=== PATIENT | female | born 1965 | race Caucasian/White ===

== ENCOUNTER 2018-03-05 14:58 | Emergency (ER) | payer OTHER ==
[2018-03-05 16:10] VITALS: RESP 20
[2018-03-05] MEDS ORDERED: IPRATROPIUM-ALBUTEROL 3 ML NEB INHALATION STA (17:03)
--- NOTE | 2018-03-05 17:34 | XR ---
EXAMINATION TYPE: XR chest 2V DATE OF EXAM: 03/05/2018 COMPARISON: 12/30/2012 HISTORY: Leg swelling TECHNIQUE: Frontal and lateral views of the chest are obtained. FINDINGS: Heart and mediastinum are normal. Lungs are clear. Diaphragm is normal. Bony thorax is int act. Pulmonary vascularity is normal. IMPRESSION: Normal chest. No change.
[2018-03-05 17:38] LABS: Basophils # (A) 0.1 k/uL (0-0.2); Basophils % (A) 1 %; Eosinophils # (A) 0.5 k/uL (0-0.7); Eosinophils % (A) 5 %; HCT 42.3 % (34.0-46.0); HGB 13.1 gm/dL (11.4-16.0); Lymphocytes # (A) 1.6 k/uL (1.0-4.8); Lymphocytes % (A) 15 %; MCH 29.8 pg (25.0-35.0); MCHC 30.9 g/dL (31.0-37.0); MCV 96.4 fL (80.0-100.0); Mean Platelet Volume 6.8; Monocytes # (A) 0.6 k/uL (0-1.0); Monocytes % (A) 6 %; Neutrophils # (A) 8.1 k/uL (1.3-7.7); Neutrophils % (A) 72 %; Platelet Count 364 k/uL (150-450); RBC 4.39 m/uL (3.80-5.40); RDW 13.7 % (11.5-15.5); WBC 11.3 k/uL (3.8-10.6)
--- NOTE | 2018-03-05 17:41 | ED ---
Extremity Problem HPI - General Chief complaint: Extremity Problem,Nontraumatic Stated complaint: Lt leg pain Time Seen by Provider: 03/05/18 16:34 Source: patient, RN notes reviewed Mode of arrival: wheelchair Limitations: no limitations - History of Present Illness Initial comments: 52-year-old female presents emergency Department chief complaint of left lower leg redness and draining. Patient states that this has been present for last 10 days or so. Patient states that she started with this a scratch her leg caused by herself. Patient states that he seemed to worsen so she called her friend who is a physician in her Keflex 500 mg twice daily. Patient states she just finished this for 1 week and states it did not improve. Patient reports no fever no chills. She has chronic swelling of lower legs and states that she has not had any recent lab work. She has no history of CHF or renal disease. Patient also reports that she's been short of breath states that she is a heavy smoker. Patient noticed some wheezing. Patient denies any abdominal complaints including nausea vomiting diarrhea constipation no decreased urine output. - Related Data Home Medications Medication Instructions Recorded Confirmed Ibuprofen [Motrin Ib] 400 mg PO Q6H PRN 03/05/18 03/05/18 Previous Rx's Medication Instructions Recorded Clindamycin HCl 300 mg PO Q6HR #40 cap 03/05/18 Furosemide [Lasix] 20 mg PO DAILY #3 tab 03/05/18 Allergies Allergy/AdvReac Type Severity Reaction Status Date / Time sulfamethoxazole Allergy BURNING ON Verified 03/05/18 16:45 [From Bactrim] LIPS trimethoprim [From Bactrim] Allergy BURNING ON Verified 03/05/18 16:45 LIPS Review of Systems ROS Statement: Those systems with pertinent positive or pertinent negative responses have been documented in the HPI. ROS Other: All systems not noted in ROS Statement are negative. Past Medical History Past Medical History: Asthma, Neurologic Disorder Additional Past Medical History / Comment(s): MIGRAINES. VARICOSE VEINS. DANISHA. CARPAL TUNNEL. GENITAL WARTS. History of Any Multi-Drug Resistant Organisms: None Reported Past Surgical History: Bladder Surgery Additional Past Surgical History / Comment(s): [facility] 01/30/12. Past Anesthesia/Blood Transfusion Reactions: Motion Sickness Past Psychological History: No Psychological Hx Reported Smoking Status: Current every day smoker Past Alcohol Use History: None Reported Past Drug Use History: None Reported - Past Family History Father Family Medical History: Cancer General Exam Limitations: no limitations General appearance: alert, in no apparent distress Head exam: Present: atraumatic, normocephalic, normal inspection Eye exam: Present: normal appearance, PERRL, EOMI. Absent: scleral icterus, conjunctival injection, periorbital swelling Respiratory exam: Present: wheezes. Absent: normal lung sounds bilaterally, respiratory distress, rales, rhonchi, stridor Cardiovascular Exam: Present: regular rate, normal rhythm, normal heart sounds. Absent: systolic murmur, diastolic murmur, rubs, gallop, clicks Extremities exam: Present: other (Bilateral lower extremity 2+ pitting edema, pedal pulses equal bilaterally, there is mild erythema to left lower lateral aspect. There is broken down skin noted with topical ointment place. There is warm with palpation) Skin exam: Present: warm, dry Course Vital Signs 03/05/18 03/05/18 03/05/18 16:06 17:40 18:01 Temperature 97.6 F Pulse Rate 93 84 88 Respiratory 20 Rate Blood Pressure 131/72 O2 Sat by Pulse 97 Oximetry Medical Decision Making - Medical Decision Making 52-year-old female presented from for left leg swelling, infection. Patient has bilateral lower [place] swelling secondary to chronic peripheral edema. Patient we given Lasix for 3 days, will be placed on clindamycin 4 times a day. Patient was on Keflex but only twice daily. We discussed wound care and leaving it open to the lower to air dry. Patient will follow-up with PCP and return for any worsening symptoms. - Lab Data Result diagrams: 03/05/18 17:10 03/05/18 17:10 Lab Results 03/05/18 03/05/18 03/05/18 Range/Units 17:10 17:10 17:10 WBC 11.3 H (3.8-10.6) k/uL RBC 4.39 (3.80-5.40) m/uL Hgb 13.1 (11.4-16.0) gm/dL Hct 42.3 (34.0-46.0) % MCV 96.4 (80.0-100.0) fL MCH 29.8 (25.0-35.0) pg MCHC 30.9 L (31.0-37.0) g/dL RDW 13.7 (11.5-15.5) % Plt Count 364 (150-450) k/uL Neutrophils % 72 % Lymphocytes % 15 % Monocytes % 6 % Eosinophils % 5 % Basophils % 1 % Neutrophils # 8.1 H (1.3-7.7) k/uL Lymphocytes # 1.6 (1.0-4.8) k/uL Monocytes # 0.6 (0-1.0) k/uL Eosinophils # 0.5 (0-0.7) k/uL Basophils # 0.1 (0-0.2) k/uL Sodium 141 (137-145) mmol/L Potassium 4.2 (3.5-5.1) mmol/L Chloride 108 H (98-107) mmol/L Carbon Dioxide 27 (22-30) mmol/L Anion Gap 6 mmol/L BUN 16 (7-17) mg/dL Creatinine 0.86 (0.52-1.04) mg/dL Est GFR (CKD-EPI)AfAm >90 (>60 ml/min/1.73 sqM) Est GFR (CKD-EPI)NonAf 80 (>60 ml/min/1.73 sqM) Glucose 106 H (74-99) mg/dL Plasma Lactic Acid Byron 1.2 (0.7-2.0) mmol/L Calcium 8.8 (8.4-10.2) mg/dL Total Bilirubin 0.2 (0.2-1.3) mg/dL AST 25 (14-36) U/L ALT 50 (9-52) U/L Alkaline Phosphatase 113 (38-126) U/L NT-Pro-B Natriuret Pep pg/mL Total Protein 6.6 (6.3-8.2) g/dL Albumin 3.3 L (3.5-5.0) g/dL 03/05/18 Range/Units 17:10 WBC (3.8-10.6) k/uL RBC (3.80-5.40) m/uL Hgb (11.4-16.0) gm/dL Hct (34.0-46.0) % MCV (80.0-100.0) fL MCH (25.0-35.0) pg MCHC (31.0-37.0) g/dL RDW (11.5-15.5) % Plt Count (150-450) k/uL Neutrophils % % Lymphocytes % % Monocytes % % Eosinophils % % Basophils % % Neutrophils # (1.3-7.7) k/uL Lymphocytes # (1.0-4.8) k/uL Monocytes # (0-1.0) k/uL Eosinophils # (0-0.7) k/uL Basophils # (0-0.2) k/uL Sodium (137-145) mmol/L Potassium (3.5-5.1) mmol/L Chloride (98-107) mmol/L Carbon Dioxide (22-30) mmol/L Anion Gap mmol/L BUN (7-17) mg/dL Creatinine (0.52-1.04) mg/dL Est GFR (CKD-EPI)AfAm (>60 ml/min/1.73 sqM) Est GFR (CKD-EPI)NonAf (>60 ml/min/1.73 sqM) Glucose (74-99) mg/dL Plasma Lactic Acid Byron (0.7-2.0) mmol/L Calcium (8.4-10.2) mg/dL Total Bilirubin (0.2-1.3) mg/dL AST (14-36) U/L ALT (9-52) U/L Alkaline Phosphatase (38-126) U/L NT-Pro-B Natriuret Pep 115 pg/mL Total Protein (6.3-8.2) g/dL Albumin (3.5-5.0) g/dL Disposition Clinical Impression: Left leg cellulitis, Leg edema, left Disposition: HOME SELF-CARE Condition: Stable Instructions: Cellulitis (ED) Additional Instructions: Please return to the Emergency Department if symptoms worsen or any other concerns. Prescriptions: Clindamycin HCl 300 mg PO Q6HR #40 cap Furosemide [Lasix] 20 mg PO DAILY #3 tab Is patient prescribed a controlled substance at d/c from ED?: No Referrals: None,Stated [Primary Care Provider] - 1-2 days Mady Barrera MD [STAFF PHYSICIAN] - 1-2 days Time of Disposition: 18:25
[2018-03-05 17:51] LABS: ALT 50 U/L (9-52); AST 25 U/L (14-36); Albumin 3.3 g/dL (3.5-5.0); Alkaline Phosphatase 113 U/L (38-126); Anion Gap 6 mmol/L; Blood Urea Nitrogen 16 mg/dL (7-17); Calcium 8.8 mg/dL (8.4-10.2); Carbon Dioxide 27 mmol/L (22-30); Chloride 108 mmol/L (98-107); Glucose 106 mg/dL (74-99); Potassium 4.2 mmol/L (3.5-5.1); Sodium 141 mmol/L (137-145); Total Bilirubin 0.2 mg/dL (0.2-1.3); Total Protein 6.6 g/dL (6.3-8.2)
[2018-03-05] MEDS ORDERED: FUROSEMIDE 10 MG/ML 2 ML VIAL IV ONE (18:22)
[2018-03-05] MEDS ORDERED: CLINDAMYCIN 150 MG CAP PO STA (18:25)
[2018-03-05 18:56] VITALS: BP 136/74; PULSE 79; TEMP 98.4
== END 2018-03-05 18:56 | disposition home or self-care (01) ==
LOC: EC 14:58
DX: L03.116 Cellulitis of left lower limb (principal); R06.02 Shortness of breath; J45.909 Unspecified asthma, uncomplicated; F17.200 Nicotine dependence, unspecified, uncomplicated; Z88.2 Allergy status to sulfonamides
CPT/HCPCS: 36415; 94640; 83880; 80053; 83605; 85025; 87040; 71046; 99284; 96374; J1940

== ENCOUNTER 2018-04-11 14:38 | Emergency (ER) | payer OTHER ==
[2018-04-11 14:48] VITALS: RESP 20; TEMP 98
[2018-04-11] MEDS ORDERED: FUROSEMIDE 40 MG TAB PO STA (15:24)
--- NOTE | 2018-04-11 15:53 | ED ---
General Adult HPI - General Chief complaint: Skin/Abscess/Foreign Body Stated complaint: Leg pain Time Seen by Provider: 04/11/18 14:59 Source: patient, RN notes reviewed Mode of arrival: wheelchair Limitations: no limitations - History of Present Illness Initial comments: 53-year-old female presents to the emergency department for a chief complaint of wound on the left lower leg 3 months. Patient states she has chronic swelling in the lower extremities 6 months. She states that she has had a wound on the left lower extremity for about 3 months and is starting to get one on the right lower extremity. Patient states wound is painful. She states that when she elevates her legs wound begins to heal but when she works all day wound worsens. She denies fevers or chills. Patient has been on antibiotics without improvement. Patient states she has not seen wound care.Patient has no other complaints at this time including shortness of breath, chest pain, abdominal pain, nausea or vomiting, headache, or visual changes. - Related Data Previous Rx's Medication Instructions Recorded Furosemide [Lasix] 40 mg PO DAILY #3 tablet 04/11/18 Allergies Allergy/AdvReac Type Severity Reaction Status Date / Time sulfamethoxazole Allergy BURNING ON Verified 04/11/18 15:23 [From Bactrim] LIPS trimethoprim [From Bactrim] Allergy BURNING ON Verified 04/11/18 15:23 LIPS Review of Systems ROS Statement: Those systems with pertinent positive or pertinent negative responses have been documented in the HPI. ROS Other: All systems not noted in ROS Statement are negative. Past Medical History Past Medical History: Asthma, Neurologic Disorder Additional Past Medical History / Comment(s): MIGRAINES. VARICOSE VEINS. DANISHA. CARPAL TUNNEL. GENITAL WARTS. History of Any Multi-Drug Resistant Organisms: None Reported Past Surgical History: Bladder Surgery Additional Past Surgical History / Comment(s): [facility] 01/30/12. Past Anesthesia/Blood Transfusion Reactions: Motion Sickness Past Psychological History: No Psychological Hx Reported Smoking Status: Current every day smoker Past Alcohol Use History: None Reported Past Drug Use History: None Reported - Past Family History Father Family Medical History: Cancer General Exam Limitations: no limitations General appearance: alert, in no apparent distress Head exam: Present: atraumatic, normocephalic, normal inspection Eye exam: Present: normal appearance, PERRL, EOMI. Absent: scleral icterus, conjunctival injection, periorbital swelling ENT exam: Present: normal exam, mucous membranes moist Neck exam: Present: normal inspection, full ROM. Absent: tenderness, meningismus, lymphadenopathy Respiratory exam: Present: normal lung sounds bilaterally. Absent: respiratory distress, wheezes, rales, rhonchi, stridor Cardiovascular Exam: Present: regular rate, normal rhythm, normal heart sounds. Absent: systolic murmur, diastolic murmur, rubs, gallop, clicks Extremities exam: Present: full ROM (4 range of motion of the right and left lower extremities), normal capillary refill (Capillary refill less than 2 seconds in lower extremities bilaterally), pedal edema (Moderate edema noted in the bilateral lower extremities, worse in the left lower extremity), other ( Patient has a 6 cm x 3 cm chronic wound noted to the left lateral lower extremity. No purulent discharge or evidence of infection. No evidence of cellulitic infection or erythema.) Course Vital Signs 04/11/18 04/11/18 14:44 16:57 Temperature 98.0 F Pulse Rate 93 92 Respiratory 20 20 Rate Blood Pressure 151/81 142/60 O2 Sat by Pulse 99 96 Oximetry Medical Decision Making - Medical Decision Making 53-year-old female presents to the emergency department for a chief complaint of wound to the left lower extremity. Patient had heart failure workup here in the hospital a month ago which was negative. Patient does have swelling of the left leg which is chronic. Left leg worse than right so ultrasound was done which is negative for acute DVT. Low suspicion for DVT. Wound does not appear to be infected at this time and appears chronic. Patient must follow-up with wound care. She was given contact [facility] for [facility]. She will also be given Lasix for the next few days. Patient to return here if she has any worsening symptoms. Disposition Clinical Impression: Chronic wound of extremity Disposition: HOME SELF-CARE Condition: Good Instructions (If sedation given, give patient instructions): Chronic Wound Care (ED), Leg Edema (ED) Additional Instructions: Please follow up with [facility] and wound care. Keep the extremity elevated as much as possible. Take Lasix as directed. Return to the emergency department if you have any worsening symptoms or fevers. Prescriptions: Furosemide [Lasix] 40 mg PO DAILY #3 tablet Is patient prescribed a controlled substance at d/c from ED?: No Referrals: Gerardo Dill MD [STAFF PHYSICIAN] - 1-2 days [facility],Idris Valladares [NON-STAFF] - 1-2 days [facility] [NON-STAFF] - 1-2 days Mady Barrera MD [STAFF PHYSICIAN] - 1-2 days Time of Disposition: 16:57
--- NOTE | 2018-04-11 16:18 | US ---
EXAMINATION TYPE: US venous doppler duplex LE LT DATE OF EXAM: 04/11/2018 3:59 PM COMPARISON: NONE CLINICAL HISTORY: 53-year-old female Pain. Left leg pain, no history of DVT. Not on blood thinners. No previous surgeries. SIDE PERFORMED: Left TECHNIQUE: The lower extremity deep venous system is examined utilizing real time linear array sonog vianey with graded compression, doppler sonography and color-flow sonography. FINDINGS: VESSELS IMAGED: External Iliac Vein (EIV) Common Femoral Vein Deep Femoral Vein Greater Saphenous Vein * Femoral Vein Popliteal Vein Small Saphenous Vein * Proximal Calf Veins (* superficial vessels) Fleet Coordinator notes:Limited exam due to patient body habitus, suboptimal visualization Left Leg: Appears negative for acute DVT IMPRESSION: Limited exam due to body habitus. No visualized DVT within the left lower extremity to the extent obdulia reciable from the groin down to the upper calf.
[2018-04-11 17:00] VITALS: BP 142/60; PULSE 92
== END 2018-04-11 18:03 | disposition home or self-care (01) ==
LOC: EC 14:38
DX: L97.929 Non-pressure chronic ulcer of unspecified part of left lower leg with unspecified severity (principal); R60.0 Localized edema; F17.200 Nicotine dependence, unspecified, uncomplicated; Z88.2 Allergy status to sulfonamides
CPT/HCPCS: 99283

== ENCOUNTER 2019-04-01 18:49 | Inpatient (IN) | payer OTHER ==
[2019-04-01] MEDS ORDERED: ASPIRIN 325 MG TAB PO STA (19:22)
--- NOTE | 2019-04-01 20:08 | XR ---
EXAMINATION TYPE: XR chest 2V DATE OF EXAM: 04/01/2019 COMPARISON: 03/05/2018 HISTORY: Leg swelling TECHNIQUE: FINDINGS: Heart and mediastinum are normal. Lungs are clear. Diaphragm is normal. Bony thorax appears normal. IMPRESSION: Normal chest. No change.
--- NOTE | 2019-04-01 20:14 | ED ---
General Adult HPI - General Chief complaint: Recheck/Abnormal Lab/Rx Stated complaint: high heart enzymes Time Seen by Provider: 04/01/19 19:10 Source: patient, RN notes reviewed, old records reviewed Mode of arrival: ambulatory Limitations: no limitations - History of Present Illness Initial comments: 54-year-old female presents for evaluation of an abnormal outpatient lab. Patient see her primary care physician today for preoperative clearance for orthopedic surgery. She had an EKG performed which showed some abnormalities and laboratories stenting was performed on an outpatient basis. She had been called by her primary care physician and instructed to present to the emergency department with an elevated troponin. I did discuss the case with Dr. Finney, prior to arrival who indicated that the patient's troponin was 3.0. Patient admits that she had an episode of chest pain 5 days prior which was substernal chest pressure lasting approximately 20 minutes. She states that she had a similar episode to this 2 days prior to that which is 7 days prior to today. She has no known history of coronary artery disease. She is a diabetic and is a current smoker. He has no complaints at the time my evaluation, no dyspnea, no chest pain. - Related Data Previous Rx's Medication Instructions Recorded Furosemide [Lasix] 40 mg PO DAILY #3 tablet 04/11/18 Allergies Allergy/AdvReac Type Severity Reaction Status Date / Time sulfamethoxazole Allergy BURNING ON Verified 04/01/19 19:01 [From Bactrim] LIPS trimethoprim [From Bactrim] Allergy BURNING ON Verified 04/01/19 19:01 LIPS Review of Systems ROS Statement: Those systems with pertinent positive or pertinent negative responses have been documented in the HPI. ROS Other: All systems not noted in ROS Statement are negative. Past Medical History Past Medical History: Asthma, Neurologic Disorder Additional Past Medical History / Comment(s): MIGRAINES. VARICOSE VEINS. DANISHA. CARPAL TUNNEL. GENITAL WARTS. History of Any Multi-Drug Resistant Organisms: None Reported Past Surgical History: Bladder Surgery Additional Past Surgical History / Comment(s): [facility] 01/30/12. Past Anesthesia/Blood Transfusion Reactions: Motion Sickness Past Psychological History: No Psychological Hx Reported Smoking Status: Current every day smoker Past Alcohol Use History: None Reported Past Drug Use History: None Reported - Past Family History Father Family Medical History: Cancer General Exam Limitations: no limitations General appearance: alert, in no apparent distress Head exam: Present: atraumatic, normocephalic Eye exam: Present: normal appearance, PERRL ENT exam: Present: normal exam Neck exam: Present: normal inspection. Absent: tenderness Respiratory exam: Present: normal lung sounds bilaterally. Absent: respiratory distress, wheezes Cardiovascular Exam: Present: regular rate, normal rhythm. Absent: rubs GI/Abdominal exam: Present: soft. Absent: distended, tenderness, guarding Extremities exam: Present: normal capillary refill, pedal edema. Absent: calf tenderness Neurological exam: Present: alert, oriented X3, CN II-XII intact. Absent: motor sensory deficit Psychiatric exam: Present: normal affect, normal mood Skin exam: Present: warm, dry, intact. Absent: cyanosis, diaphoretic Course Vital Signs 04/01/19 18:58 Temperature 98.2 F Pulse Rate 91 Respiratory 20 Rate Blood Pressure 118/75 O2 Sat by Pulse 99 Oximetry - Reevaluation(s) Reevaluation #1: 04/01/191923 Case discussed with cardiology Dr. Daniel, recommends heparin, beta yeyo, echo in the morning and repeat EKG in the morning. EKG Findings - EKG Comments: EKG Findings:: EKG: Normal sinus rhythm, left axis, low voltage, incomplete right bundle-branch block, inferior infarct age undetermined, rate of 99, IL interval 170, QRS duration 94, QTC 462, Medical Decision Making - Medical Decision Making 54-year-old female presenting for evaluation of elevated troponin on outpatient testing. Patient's is chest pain-free. Chest x-ray negative for acute Antwan pulmonary disease. Normal CBC, stable hemoglobin, normal platelets. She has normal electrolytes, normal kidney function, troponin is elevated 2.9, this is stable and down trending from reported lab draw earlier today. Patient is initiated on heparin, aspirin, beta blockers. She remains chest pain-free while in the emergency department. I did discuss case with cardiology at the time of patient's arrival. Recommending echo and heparin. - Lab Data Result diagrams: 04/01/19 19:32 04/01/19 19:32 Lab Results 04/01/19 04/01/19 04/01/19 Range/Units 19:32 19:32 19:32 WBC 12.3 H (3.8-10.6) k/uL RBC 4.75 (3.80-5.40) m/uL Hgb 14.3 (11.4-16.0) gm/dL Hct 44.0 (34.0-46.0) % MCV 92.6 (80.0-100.0) fL MCH 30.2 (25.0-35.0) pg MCHC 32.6 (31.0-37.0) g/dL RDW 13.9 (11.5-15.5) % Plt Count 375 (150-450) k/uL Neutrophils % 71 % Lymphocytes % 17 % Monocytes % 6 % Eosinophils % 4 % Basophils % 1 % Neutrophils # 8.8 H (1.3-7.7) k/uL Lymphocytes # 2.1 (1.0-4.8) k/uL Monocytes # 0.7 (0-1.0) k/uL Eosinophils # 0.5 (0-0.7) k/uL Basophils # 0.1 (0-0.2) k/uL PT 10.2 (9.0-12.0) sec INR 1.0 (<1.2) APTT 24.2 (22.0-30.0) sec Sodium 139 (137-145) mmol/L Potassium 5.1 (3.5-5.1) mmol/L Chloride 106 (98-107) mmol/L Carbon Dioxide 21 L (22-30) mmol/L Anion Gap 12 mmol/L BUN 22 H (7-17) mg/dL Creatinine 0.76 (0.52-1.04) mg/dL Est GFR (CKD-EPI)AfAm >90 (>60 ml/min/1.73 sqM) Est GFR (CKD-EPI)NonAf >90 (>60 ml/min/1.73 sqM) Glucose 99 (74-99) mg/dL Calcium 9.5 (8.4-10.2) mg/dL Magnesium 1.7 (1.6-2.3) mg/dL Total Bilirubin 0.6 (0.2-1.3) mg/dL AST 43 H (14-36) U/L ALT 30 (4-34) U/L Alkaline Phosphatase 125 (38-126) U/L Troponin I (0.000-0.034) ng/mL Total Protein 7.8 (6.3-8.2) g/dL Albumin 4.2 (3.5-5.0) g/dL 04/01/19 Range/Units 19:32 WBC (3.8-10.6) k/uL RBC (3.80-5.40) m/uL Hgb (11.4-16.0) gm/dL Hct (34.0-46.0) % MCV (80.0-100.0) fL MCH (25.0-35.0) pg MCHC (31.0-37.0) g/dL RDW (11.5-15.5) % Plt Count (150-450) k/uL Neutrophils % % Lymphocytes % % Monocytes % % Eosinophils % % Basophils % % Neutrophils # (1.3-7.7) k/uL Lymphocytes # (1.0-4.8) k/uL Monocytes # (0-1.0) k/uL Eosinophils # (0-0.7) k/uL Basophils # (0-0.2) k/uL PT (9.0-12.0) sec INR (<1.2) APTT (22.0-30.0) sec Sodium (137-145) mmol/L Potassium (3.5-5.1) mmol/L Chloride (98-107) mmol/L Carbon Dioxide (22-30) mmol/L Anion Gap mmol/L BUN (7-17) mg/dL Creatinine (0.52-1.04) mg/dL Est GFR (CKD-EPI)AfAm (>60 ml/min/1.73 sqM) Est GFR (CKD-EPI)NonAf (>60 ml/min/1.73 sqM) Glucose (74-99) mg/dL Calcium (8.4-10.2) mg/dL Magnesium (1.6-2.3) mg/dL Total Bilirubin (0.2-1.3) mg/dL AST (14-36) U/L ALT (4-34) U/L Alkaline Phosphatase (38-126) U/L Troponin I 2.900 H* (0.000-0.034) ng/mL Total Protein (6.3-8.2) g/dL Albumin (3.5-5.0) g/dL Critical Care Time Critical Care Time: Yes Total Critical Care Time: 35 Disposition Clinical Impression: NSTEMI (non-ST elevated myocardial infarction) Disposition: ADMITTED IP TO THIS HOSP Condition: Stable Is patient prescribed a controlled substance at d/c from ED?: No Referrals: Noemy Valencia MD [Primary Care Provider] - 1-2 days Decision to Admit Reason: Admit from EC Decision Date: 04/01/19 Decision Time: 21:01
[2019-04-01 20:16] LABS: Basophils # (A) 0.1 k/uL (0-0.2); Basophils % (A) 1 %; Eosinophils # (A) 0.5 k/uL (0-0.7); Eosinophils % (A) 4 %; HGB 14.3 gm/dL (11.4-16.0); Lymphocytes # (A) 2.1 k/uL (1.0-4.8); Lymphocytes % (A) 17 %; MCH 30.2 pg (25.0-35.0); MCHC 32.6 g/dL (31.0-37.0); MCV 92.6 fL (80.0-100.0); Mean Platelet Volume 7.5; Monocytes # (A) 0.7 k/uL (0-1.0); Monocytes % (A) 6 %; Neutrophils # (A) 8.8 k/uL (1.3-7.7); Neutrophils % (A) 71 %; Platelet Count 375 k/uL (150-450); RBC 4.75 m/uL (3.80-5.40); RDW 13.9 % (11.5-15.5); WBC 12.3 k/uL (3.8-10.6)
[2019-04-01] MEDS ORDERED: HEPARIN SODIUM,PORCINE 5,000 UNIT/ML 1 ML VIAL IV PRN (20:18)
[2019-04-01] MEDS ORDERED: HEPARIN SODIUM,PORCINE 5,000 UNIT/ML 1 ML VIAL IV ONE (20:18)
[2019-04-01 20:29] LABS: ALT 30 U/L (4-34); AST 43 U/L (14-36); African American GFR (CKD) >90 (>60 ml/min/1.73 sqM); Albumin 4.2 g/dL (3.5-5.0); Alkaline Phosphatase 125 U/L (38-126); Anion Gap 12 mmol/L; Blood Urea Nitrogen 22 mg/dL (7-17); Calcium 9.5 mg/dL (8.4-10.2); Carbon Dioxide 21 mmol/L (22-30); Chloride 106 mmol/L (98-107); Glucose 99 mg/dL (74-99); Magnesium 1.7 mg/dL (1.6-2.3); Non-African American GFR(CKD) >90 (>60 ml/min/1.73 sqM); Potassium 5.1 mmol/L (3.5-5.1); Sodium 139 mmol/L (137-145); Total Bilirubin 0.6 mg/dL (0.2-1.3); Total Protein 7.8 g/dL (6.3-8.2)
[2019-04-01 20:46] LABS: Partial Thromboplastin Time 24.2 sec (22.0-30.0); Prothrombin Time 10.2 sec (9.0-12.0)
[2019-04-01] MEDS ORDERED: NITROGLYCERIN SL TABS 0.4 MG TAB SUBLINGUAL PRN (20:56)
[2019-04-01] MEDS: HEPARIN SOD,PORK IN 0.45% NACL 25,000 UNIT in 0.45% NACL 1 250ML.BAG IV SCH (21:13)
[2019-04-01] MEDS: ATORVASTATIN 40 MG TAB PO SCH (22:59)
[2019-04-01] MEDS: Acetaminophen-Codeine 300-30mg TAB PO PRN (22:59)
[2019-04-01] MEDS: METOPROLOL TARTRATE 25 MG TAB PO SCH (22:59)
[2019-04-02 03:09] LABS: Basophils # (A) 0.2 k/uL (0-0.2); Basophils % (A) 2 %; Eosinophils # (A) 0.5 k/uL (0-0.7); Eosinophils % (A) 4 %; HCT 42.9 % (34.0-46.0); Lymphocytes # (A) 2.5 k/uL (1.0-4.8); Lymphocytes % (A) 19 %; MCH 30.4 pg (25.0-35.0); MCHC 32.6 g/dL (31.0-37.0); MCV 93.4 fL (80.0-100.0); Mean Platelet Volume 7.7; Monocytes # (A) 0.9 k/uL (0-1.0); Monocytes % (A) 7 %; Neutrophils # (A) 8.5 k/uL (1.3-7.7); Neutrophils % (A) 67 %; Platelet Count 357 k/uL (150-450); RBC 4.59 m/uL (3.80-5.40); RDW 13.8 % (11.5-15.5); WBC 12.7 k/uL (3.8-10.6)
[2019-04-02 03:26] LABS: Cholesterol 198 mg/dL (<200); HDL Cholesterol 36 mg/dL (40-60); LDL Cholesterol,Calculated 112 mg/dL (0-99); Triglycerides 250 mg/dL (<150)
[2019-04-02] MEDS: Acetaminophen-Codeine 300-30mg TAB PO PRN ×2 (06:38→13:33)
[2019-04-02] MEDS ORDERED: ASPIRIN 325 MG TAB PO SCH (09:00)
[2019-04-02] MEDS: NICOTINE 14MG/24HR PATCH TRANSDERM SCH (09:41)
[2019-04-02] MEDS ORDERED: IPRATROPIUM-ALBUTEROL 3 ML NEB INHALATION PRN (09:43)
[2019-04-02] MEDS: ASPIRIN 81 MG PO SCH (09:47)
[2019-04-02] MEDS: METOPROLOL TARTRATE 25 MG TAB PO SCH ×2 (09:48→21:45)
[2019-04-02] MEDS ORDERED: PANTOPRAZOLE 40 MG/10 ML VIAL IVP SCH (10:15)
[2019-04-02] MEDS: HYDROmorphone 1 MG/ML 1 ML SYRINGE IVP PRN ×2 (11:03→18:39)
[2019-04-02] MEDS: methylPREDNISolone SOD SUCCI 40 MG/ML 1 ML VIAL IV SCH ×3 (11:04→23:38)
[2019-04-02 11:20] LABS: Glucose,Whole Blood 106 mg/dL (75-99)
--- NOTE | 2019-04-02 11:22 | P.HPIM ---
History of Present Illness H&P Date: 04/02/19 Chief Complaint: Abnormal troponin This is a 54-year-old female patient of Dr. Valencia with past medical history of asthma, possible COPD, migraine headaches, active tobacco use and dependence, avascular necrosis of the right hip. Patient states that she saw Dr. Valencia yesterday for preop clearance for right hip surgery with Dr. Pryor it is scheduled for April 28. Patient then related to her physician that she had chest pain. Patient has been having chest pain for about one week one episode was quite severe was tightness and heartburn type symptoms. She has had several repeat episodes or less severe. She denies having any nausea. Patient had an EKG that was mildly abnormal in the office and troponin was ordered. Patient received a call that her troponin came back at 3 was advised to come in the hospital for further evaluation. Patient denies any chest pain at this time. She is complaining of significant right hip pain and states that she is unable to lay flat due to pain in her hip. She has been off work since October 2018 waiting for hip surgery. The patient was placed on doxycycline, prednisone taper by Dr. Valencia. Patient presented to [facility] emergency center for evaluation. She was afebrile, heart rate 91, blood pressure 118/75 and pulse ox 99% on room air. EKG was a sinus rhythm with changes in the inferior lead suggestive of inferior IA. WBC 12.3, hemoglobin 14.3. Electrolytes within normal limits, creatinine 0.76 and BUN 22, AST 43. Repeat troponins were 2.8 and 2.340. Triglycerides 250, cholesterol 198, LDL 112, HDL 36. Patient was started on aspirin, atorvastatin, heparin drip, Lopressor 25 mg twice daily and admitted to the cardiac stepdown unit. Patient has been seen by cardiology with plan for echocardiogram and heart catheterization tomorrow. Patient is also complaining of wheezing for which nebulizer treatments and Solu-Medrol added. Patient is concerned about laying flat due for heart catheterization due to hip pain. Dilaudid will be added and heart catheterization is planned via wrist. Review of Systems Constitutional: Denies chills, Denies fever, Denies poor appetite, Denies weakness Eyes: denies blurred vision, denies pain Ears, nose, mouth and throat: Denies dysphagia, Denies headache, Denies nasal congestion, Denies nasal discharge, Denies sore throat, Denies vertigo Cardiovascular: Reports shortness of breath, Denies chest pain, Denies edema, Denies leg edema, Denies lightheadedness, Denies syncope Respiratory: Reports cough, Reports cough with sputum, Reports dyspnea, Reports wheezing, Denies excessive sputum, Denies hemoptysis, Denies home oxygen Gastrointestinal: Denies abdominal pain, Denies diarrhea, Denies loss of appetite, Denies nausea, Denies vomiting Genitourinary: Denies dysuria, Denies hematuria, Denies urgency, Denies urinary frequency Musculoskeletal: Reports gait dysfunction, Denies frequent falls, Denies myalgias Musculoskeletal: right: hip pain, hip stiffness Integumentary: Denies pruritus, Denies rash, Denies wounds Neurological: Denies change in mentation, Denies change in speech, Denies numbness, Denies weakness Psychiatric: Denies anxiety, Denies depression Endocrine: Denies fatigue, Denies weight change Past Medical History Past Medical History: Asthma, COPD, Osteoarthritis (OA) Additional Past Medical History / Comment(s): MIGRAINES. VARICOSE VEINS. DANISHA. CARPAL TUNNEL. GENITAL WARTS. History of Any Multi-Drug Resistant Organisms: MRSA Date of last positivie culture/infection: 07/2018 MDRO Source:: left leg Past Surgical History: Bladder Surgery Additional Past Surgical History / Comment(s): RICCARDO 01/30/12. Past Anesthesia/Blood Transfusion Reactions: No Reported Reaction Past Psychological History: No Psychological Hx Reported Smoking Status: Current every day smoker Past Alcohol Use History: None Reported Additional Past Alcohol Use History / Comment(s): The patient is a smoker since she was 13 years of age smoking one to one and half packs per day recently cut back to one half pack per day. No illicit drug use, no alcohol abuse. Patient denies having oxygen at home. Patient lives at home with her significant other. Past Drug Use History: None Reported - Past Family History Father Family Medical History: Cancer Additional Family Medical History / Comment(s): Father is . Patient had no contact with her father. Mother Family Medical History: Diabetes Mellitus Additional Family Medical History / Comment(s): Mother is alive at age 72 with history of COPD, diabetes, chronic kidney disease. No known coronary artery disease. Brother(s) Additional Family Medical History / Comment(s): Patient has 1 brother with no major medical problems. Patient's 1 sister with ADD. Patient has 1 son with ADD and one daughter with asthma. Medications and Allergies Home Medications Medication Instructions Recorded Confirmed Type Furosemide [Lasix] 40 mg PO DAILY #3 tablet 04/11/18 04/01/19 Rx Acetaminophen with Codeine 1 tab PO QID 04/01/19 04/01/19 History [Tylenol with Codeine #4 Tablet] Cyclobenzaprine [Flexeril] 5 mg PO TID 04/01/19 04/01/19 History Doxycycline Monohydrate [Monodox] 100 mg PO BID 04/01/19 04/01/19 History Ipratropium/Albuterol Sulfate 1 puff INHALATION RT-QID 04/01/19 04/01/19 History [Combivent Respimat Inhaler] Naproxen Sodium [Aleve] 220 mg PO BID PRN 04/01/19 04/01/19 History Phentermine HCl [Adipex-P] 37.5 mg PO DAILY 04/01/19 04/01/19 History Potassium Chloride ER [K-Dur 20] 20 meq PO DAILY 04/01/19 04/01/19 History predniSONE [Deltasone] See Taper PO DAILY 04/01/19 04/01/19 History Allergies Allergy/AdvReac Type Severity Reaction Status Date / Time sulfamethoxazole Allergy BURNING ON Verified 04/01/19 21:51 [From Bactrim] LIPS trimethoprim [From Bactrim] Allergy BURNING ON Verified 04/01/19 21:51 LIPS Physical Exam Vitals: Vital Signs Temp Pulse Pulse Resp BP BP Pulse Ox 04/02/19 08:00 98 F 82 18 107/55 04/02/19 04:00 97.8 F 86 18 102/55 93 L 04/01/19 23:16 89 20 04/01/19 22:07 97.8 F 89 20 120/54 96 04/01/19 21:20 91 16 123/52 96 04/01/19 18:58 98.2 F 91 20 118/75 99 Intake and Output 04/01/19 04/02/19 04/02/19 22:59 06:59 14:59 Intake Total 71 0 Balance 71 0 Intake: Intake, IV Titration 71 Amount Heparin Sod,Pork in 0.45% 71 NaCl 25,000 unit In 0.45 % NaCl 1 250ml.bag @ 7. 818 UNITS/KG/HR 10 mls/hr IV .Q24H [facility] Rx#: [id number] Oral 0 Other: Voiding Method Toilet # Voids 1 0 # Bowel Movements 0 Weight 127.6 kg 127.6 kg Gen: This is a morbidly obese 54-year-old female. Patient is resting in bed and appears to be in no acute distress. HEENT: Head is atraumatic, normocephalic. Pupils equal, round. Sclerae is anicteric. NECK: Supple. No JVD. No lymphadenopathy. No thyromegaly. LUNGS: Scattered expiratory wheezing. No intercostal retractions. Positive cough noted. HEART: Regular rate and rhythm. No murmur. ABDOMEN: Soft. Bowel sounds are present. No masses. No tenderness. EXTREMITIES: No pedal edema. No calf tenderness. NEUROLOGICAL: Patient is awake, alert and oriented x3. Cranial nerves 2 through 12 are grossly intact. Results CBC & Chem 7: 04/02/19 02:27 04/01/19 19:32 Labs: Abnormal Lab Results - Last 24 Hours (Table) 04/01/19 04/01/19 04/01/19 Range/Units 19:32 19:32 19:32 WBC 12.3 H (3.8-10.6) k/uL Neutrophils # 8.8 H (1.3-7.7) k/uL Carbon Dioxide 21 L (22-30) mmol/L BUN 22 H (7-17) mg/dL AST 43 H (14-36) U/L Troponin I 2.900 H* (0.000-0.034) ng/mL Triglycerides (<150) mg/dL LDL Cholesterol, Calc (0-99) mg/dL HDL Cholesterol (40-60) mg/dL 04/02/19 04/02/19 04/02/19 Range/Units 02:27 02:27 02:27 WBC 12.7 H (3.8-10.6) k/uL Neutrophils # 8.5 H (1.3-7.7) k/uL Carbon Dioxide (22-30) mmol/L BUN (7-17) mg/dL AST (14-36) U/L Troponin I 2.800 H* (0.000-0.034) ng/mL Triglycerides 250 H (<150) mg/dL LDL Cholesterol, Calc 112 H (0-99) mg/dL HDL Cholesterol 36 L (40-60) mg/dL 04/02/19 Range/Units 07:07 WBC (3.8-10.6) k/uL Neutrophils # (1.3-7.7) k/uL Carbon Dioxide (22-30) mmol/L BUN (7-17) mg/dL AST (14-36) U/L Troponin I 2.340 H* (0.000-0.034) ng/mL Triglycerides (<150) mg/dL LDL Cholesterol, Calc (0-99) mg/dL HDL Cholesterol (40-60) mg/dL Thrombosis Risk Factor Assmnt - DVT/VTE Prophylaxis DVT/VTE Prophylaxis: Pharmacologic Prophylaxis ordered - Choose All That Apply Any of the Below Risk Factors Present?: Yes Each Factor Represents 1 point: Age 41-60 years, Obesity (BMI >25), Swollen legs (current) Thrombosis Risk Factor Assessment Total Risk Factor Score: 3 Thrombosis Risk Factor Assessment Level: Moderate Risk Assessment and Plan Plan: 1. Subacute inferior myocardial infarction. IA most likely occurred 1 week ago at time of initial chest pain. Continue aspirin 81 mg daily, atorvastatin 40 mg at bedtime, heparin drip, Lopressor 25 mg twice daily, Nitrostat as needed. Patient has been seen by cardiology. Cardiology consult appreciated. She is scheduled for heart catheterization tomorrow. 2. Acute COPD exacerbation, possible acute asthma exacerbation. Patient started on DuoNeb treatments scheduled 3 times daily and as needed, Pulmicort 0.5 mg twice daily, Solu-Medrol 40 mg IV every 8 hours. 3. History of mild persistent asthma. Continue as in #2. 4. Suspect COPD due to 41 year history of smoking 1 - 1 1/2 packs per day. Continue as in #2. 5. Dyslipidemia. Continue atorvastatin. 6. Morbid obesity with BMI of 46. Patient has been on Adipex which will be on hold. 7. Avascular necrosis of the right hip. Patient has been seen by Dr. Pryor with tentative plan for surgical intervention on April 28. Dilaudid 1 mg IV push will be added for pain, continue Flexeril 5 mg 3 times daily.. 8. Tobacco use and dependence. Nicotine patch. 9. Gastroesophageal reflux disease and GI prophylaxis. Protonix. 10. DVT prophylaxis. Heparin. Patient will be admitted to the hospital for a minimum of 3 night stay. Discharge plan: Return home Impression and plan of care have been directed as dictated by the signing physician. Megan Rico nurse practitioner acting as scribe for signing physician.
[2019-04-02] MEDS: IPRATROPIUM-ALBUTEROL 3 ML NEB INHALATION SCH ×2 (11:29→18:53)
--- NOTE | 2019-04-02 12:06 | P.CRDCN ---
History of Present Illness History of present illness: This is Courtney Higginbotham PA-C dictating a consult on this patient The patient was interviewed and examined by me as well as by Dr. Syed Case discussed with Dr. Syed and he agrees with the plan of care IMPRESSION / ASSESSMENT: Inferior PR, patient had chest discomfort intermittently over the last week, EKG with ST changes inferiorly, abnormal troponins, trending down, patient is currently chest pain free Asthma COPD Avascular necrosis of the right hip Current smoker Dyslipidemia PLAN: Plan for heart catheterization tomorrow, she has difficulty lying flat due to her severe hip pain from avascular necrosis so radial approach would be preferred Continue aspirin, atorvastatin, heparin, metoprolol Echocardiogram has been ordered, follow up on results HPI Patient is a 54-year-old female with a past medical history significant for asthma, COPD, and avascular necrosis who was sent to the emergency department from her primary care doctor's office. She went to her primary care doctor's office for preoperative clearance for surgery on her hip for avascular necrosis. She had been having some chest pain intermittently for the last week. She described it as" heartburn" and tightness in her jaw which it usually occurred after meals. It was nonexertional. She had no associated shortness of breath, nausea or diaphoresis. The longest it lasted for about 20 minutes about a week ago. She told her primary care doctor about it and she ordered an EKG. EKG was found to be abnormal so her PCP ordered lab work including troponins which were found to be abnormal so she was sent to the emergency department for further evaluation. Upon arrival to the emergency department she was chest pain free. Her EKG showed ST changes inferiorly. Labs are significant for abnormal troponins, 2.34 from 2.8 from 2.9. Patient seen and examined resting in bed. Remains chest pain-free. She did eat dinner last night and did not have any of her heartburn symptoms or jaw tightness. She does have shortness of breath at baseline due to her asthma and COPD but denies any worsening shortness of breath. She is a current smoker Denies history of hypertension or diabetes Denies family history of heart disease ROS: No fevers, chills or rigors, no cough, phlegm or expectoration, no nausea, vomiting or diarrhea, no hematuria, dysuria, Positive for hip pain no strokes or seizures, no skin lesions. EXAMINATION: Patient is afebrile, pulse in the 70s, respirations 18, blood pressure 126/67, oxygen saturation 92% on 1 L nasal cannula Patient seen and examined resting in bed, in no acute distress Diffuse expiratory wheezing bilaterally Heart is regular, no audible murmurs No elevated JVD noted Mild lower extremity edema bilaterally REVIEW OF LABS, ECG & MEDICAL DATA WBC 12.7, hemoglobin 14, platelets 257, BUN 22, creatinine 0.76 LDL 112 Past Medical History Past Medical History: Asthma, COPD, Osteoarthritis (OA) Additional Past Medical History / Comment(s): MIGRAINES. VARICOSE VEINS. DANISHA. CARPAL TUNNEL. GENITAL WARTS. History of Any Multi-Drug Resistant Organisms: MRSA Date of last positivie culture/infection: 07/2018 MDRO Source:: left leg Past Surgical History: Bladder Surgery Additional Past Surgical History / Comment(s): MONARCH 01/30/12. Past Anesthesia/Blood Transfusion Reactions: No Reported Reaction Past Psychological History: No Psychological Hx Reported Smoking Status: Current every day smoker Past Alcohol Use History: None Reported Additional Past Alcohol Use History / Comment(s): The patient is a smoker since she was 13 years of age smoking one to one and half packs per day recently cut back to one half pack per day. No illicit drug use, no alcohol abuse. Patient denies having oxygen at home. Patient lives at home with her significant other. Past Drug Use History: None Reported - Past Family History Father Family Medical History: Cancer Additional Family Medical History / Comment(s): Father is . Patient had no contact with her father. Mother Family Medical History: Diabetes Mellitus Additional Family Medical History / Comment(s): Mother is alive at age 72 with history of COPD, diabetes, chronic kidney disease. No known coronary artery disease. Brother(s) Additional Family Medical History / Comment(s): Patient has 1 brother with no major medical problems. Patient's 1 sister with ADD. Patient has 1 son with ADD and one daughter with asthma. Medications and Allergies Home Medications Medication Instructions Recorded Confirmed Type Furosemide [Lasix] 40 mg PO DAILY #3 tablet 04/11/18 04/01/19 Rx Acetaminophen with Codeine 1 tab PO QID 04/01/19 04/01/19 History [Tylenol with Codeine #4 Tablet] Cyclobenzaprine [Flexeril] 5 mg PO TID 04/01/19 04/01/19 History Doxycycline Monohydrate [Monodox] 100 mg PO BID 04/01/19 04/01/19 History Ipratropium/Albuterol Sulfate 1 puff INHALATION RT-QID 04/01/19 04/01/19 History [Combivent Respimat Inhaler] Naproxen Sodium [Aleve] 220 mg PO BID PRN 04/01/19 04/01/19 History Phentermine HCl [Adipex-P] 37.5 mg PO DAILY 04/01/19 04/01/19 History Potassium Chloride ER [K-Dur 20] 20 meq PO DAILY 04/01/19 04/01/19 History predniSONE [Deltasone] See Taper PO DAILY 04/01/19 04/01/19 History Allergies Allergy/AdvReac Type Severity Reaction Status Date / Time sulfamethoxazole Allergy BURNING ON Verified 04/01/19 21:51 [From Bactrim] LIPS trimethoprim [From Bactrim] Allergy BURNING ON Verified 04/01/19 21:51 LIPS Physical Exam Vitals: Vital Signs Temp Pulse Pulse Resp BP BP Pulse Ox 04/02/19 11:41 74 04/02/19 11:32 70 04/02/19 11:01 97.8 F 66 18 126/67 92 L 04/02/19 08:00 98 F 82 18 107/55 04/02/19 04:00 97.8 F 86 18 102/55 93 L 04/01/19 23:16 89 20 04/01/19 22:07 97.8 F 89 20 120/54 96 04/01/19 21:20 91 16 123/52 96 04/01/19 18:58 98.2 F 91 20 118/75 99 Intake and Output 04/01/19 04/02/19 04/02/19 22:59 06:59 14:59 Intake Total 71 95.021 Balance 71 95.021 Intake: Intake, IV Titration 71 95.021 Amount Heparin Sod,Pork in 0.45% 71 95.021 NaCl 25,000 unit In 0.45 % NaCl 1 250ml.bag @ 7. 818 UNITS/KG/HR 10 mls/hr IV .Q24H [facility] Rx#: [id number] Oral 0 Other: Voiding Method Toilet # Voids 1 0 # Bowel Movements 0 Weight 127.6 kg 127.6 kg Results 04/02/19 02:27 04/01/19 19:32 Cardiac Enzymes 04/01/19 04/01/19 04/02/19 Range/Units 19:32 19:32 02:27 AST 43 H (14-36) U/L Troponin I 2.900 H* 2.800 H* (0.000-0.034) ng/mL 04/02/19 Range/Units 07:07 AST (14-36) U/L Troponin I 2.340 H* (0.000-0.034) ng/mL Coagulation 04/01/19 04/02/19 04/02/19 Range/Units 19:32 02:27 10:25 PT 10.2 (9.0-12.0) sec APTT 24.2 26.7 30.3 H (22.0-30.0) sec Lipids 04/02/19 Range/Units 02:27 Triglycerides 250 H (<150) mg/dL Cholesterol 198 (<200) mg/dL HDL Cholesterol 36 L (40-60) mg/dL CBC 04/01/19 04/02/19 Range/Units 19:32 02:27 WBC 12.3 H 12.7 H (3.8-10.6) k/uL RBC 4.75 4.59 (3.80-5.40) m/uL Hgb 14.3 14.0 (11.4-16.0) gm/dL Hct 44.0 42.9 (34.0-46.0) % Plt Count 375 357 (150-450) k/uL Comprehensive Metabolic Panel 04/01/19 Range/Units 19:32 Sodium 139 (137-145) mmol/L Potassium 5.1 (3.5-5.1) mmol/L Chloride 106 (98-107) mmol/L Carbon Dioxide 21 L (22-30) mmol/L BUN 22 H (7-17) mg/dL Creatinine 0.76 (0.52-1.04) mg/dL Glucose 99 (74-99) mg/dL Calcium 9.5 (8.4-10.2) mg/dL AST 43 H (14-36) U/L ALT 30 (4-34) U/L Alkaline Phosphatase 125 (38-126) U/L Total Protein 7.8 (6.3-8.2) g/dL Albumin 4.2 (3.5-5.0) g/dL Current Medications Generic Name Dose Route Start Last Admin Trade Name Freq PRN Reason Stop Dose Admin Acetaminophen/Codeine Phosphate 1 each 04/01/19 22:45 04/02/19 06:38 Tylenol #3 PO 1 each Q6HR PRN Administration Pain Albuterol/Ipratropium 3 ml 04/02/19 13:00 04/02/19 11:29 Duoneb 0.5 Mg-3 Mg/3 Ml Soln INHALATION 3 ml RT-TID [facility] Administration Albuterol/Ipratropium 3 ml 04/02/19 09:43 Duoneb 0.5 Mg-3 Mg/3 Ml Soln INHALATION RT-QID PRN Shortness Of Breath Or Wheezing Aspirin 81 mg 04/02/19 09:45 04/02/19 09:47 Aspirin PO 81 mg DAILY [facility] Administration Atorvastatin Calcium 40 mg 04/01/19 21:15 04/01/19 22:59 Lipitor PO 40 mg HS [facility] Administration Budesonide 0.5 mg 04/02/19 20:00 Pulmicort INHALATION RT-BID [facility] Cyclobenzaprine HCl 5 mg 04/02/19 16:00 Flexeril PO TID [facility] Heparin Sodium (Porcine) 0 unit 04/01/19 20:18 Heparin IV PER PROTOCOL PRN Low PTT Protocol Hydromorphone HCl 1 mg 04/02/19 09:47 04/02/19 11:03 Dilaudid IVP 1 mg Q6HR PRN Administration Pain Heparin Sodium/Sodium Chloride 250 mls @ 10 mls/hr 04/01/19 20:30 04/02/19 11:11 25,000 unit/ Sodium Chloride IV 13.818 units/kg/hr .Q24H [facility] 17.675 mls/hr Titration Protocol 7.818 UNITS/KG/HR Methylprednisolone Sodium Succinate 40 mg 04/02/19 10:00 04/02/19 11:04 Solu-Medrol IV 40 mg Q8HR [facility] Administration Metoprolol Tartrate 25 mg 04/01/19 21:15 04/02/19 09:48 Lopressor PO 25 mg BID [facility] Administration Nicotine 1 patch 04/02/19 09:00 04/02/19 09:41 Habitrol 14mg/24hr Patch TRANSDERM Not Given DAILY [facility] Nitroglycerin 0.4 mg 04/01/19 20:56 Nitrostat SUBLINGUAL Q5M PRN Chest Pain Pantoprazole Sodium 40 mg 04/02/19 10:15 04/02/19 11:04 Protonix IVP 40 mg DAILY [facility] Administration Intake and Output 04/01/19 04/02/19 04/02/19 22:59 06:59 14:59 Intake Total 71 95.021 Balance 71 95.021 Intake: Intake, IV Titration 71 95.021 Amount Heparin Sod,Pork in 0.45% 71 95.021 NaCl 25,000 unit In 0.45 % NaCl 1 250ml.bag @ 7. 818 UNITS/KG/HR 10 mls/hr IV .Q24H [facility] Rx#: [id number] Oral 0 Other: Voiding Method Toilet # Voids 1 0 # Bowel Movements 0 Weight 127.6 kg 127.6 kg 04/02/19 02:27 04/01/19 19:32
--- NOTE | 2019-04-02 13:00 | ECHOF ---
Referral Reason:NSTEMI MEASUREMENTS -------- HEIGHT: 165.1 cm WEIGHT: 127.5 kg BP: 102/55 RVIDd: 3.6 cm (< 3.3) IVSd: 1.4 cm (0.6 - 1.1) LVIDd: 3.4 cm (3.9 - 5.3) LVPWd: 1.3 cm (0.6 - 1.1) IVSs: 1.6 cm LVIDs: 3.0 cm LVPWs: 1.9 cm LA Diam: 3.4 cm (2.7 - 3.8) LAESV Index (A-L): 16.25 ml/m Ao Diam: 3.1 cm (2.0 - 3.7) AV Cusp: 2.3 cm (1.5 - 2.6) MV EXCURSION: 19.436 mm (> 18.000) MV EF SLOPE: 51 mm/s (70 - 150) EPSS: 0.4 cm MV E Gt: 0.81 m/s MV DecT: 236 ms MV A Gt: 0.96 m/s MV E/A Ratio: 0.84 RAP: 15.00 mmHg RVSP: 30.59 mmHg FINDINGS -------- Sinus rhythm. This was a technically adequate study. The left ventricular size is normal. There is moderate concentric left ventricular hypertrophy. O verall left ventricular systolic function is normal with, an EF between 60 - 65 %. The right ventricle is mildly enlarged. Normal LA size by volume 22+/-6 ml/m2. The right atrium is normal in size. Lipomatous Hypertrophy of the atrial septum is present The aortic valve is trileaflet and appears structurally normal. The mitral valve is normal. The tricuspid valve appears structurally normal. The pulmonic valve was not well visualized. The aortic root size is normal. Normal inferior vena cava with less than 50% inspiratory collapse consistent with estimated right atr ial pressure of 15 mmHg. There is no pericardial effusion. CONCLUSIONS -------- 1. Sinus rhythm. 2. This was a technically adequate study. 3. The left ventricular size is normal. 4. There is moderate concentric left ventricular hypertrophy. 5. Overall left ventricular systolic function is normal with, an EF between 60 - 65 %. 6. The right ventricle is mildly enlarged. 7. Normal LA size by volume 22+/-6 ml/m2. 8. The right atrium is normal in size. 9. Lipomatous Hypertrophy of the atrial septum is present 10. The aortic valve is trileaflet and appears structurally normal. 11. The mitral valve is normal. 12. The tricuspid valve appears structurally normal. 13. The pulmonic valve was not well visualized. 14. The aortic root size is normal. 15. Normal inferior vena cava with less than 50% inspiratory collapse consistent with estimated right atrial pressure of 15 mmHg. 16. There is no pericardial effusion. CLIENT APPLICATION SUPPORT SPECIALIST: Chrissie Pride RDCS
[2019-04-02] MEDS ORDERED: ALPRAZolam 0.5 MG TAB PO PRN (15:21)
[2019-04-02] MEDS ORDERED: SODIUM CHLORIDE 0.9% 1,000 ML in EMPTY BAG 1 BAG IV ONE (15:21)
[2019-04-02] MEDS: CYCLOBENZAPRINE 5 MG TAB PO SCH ×2 (16:16→21:45)
[2019-04-02 17:06] LABS: Glucose,Whole Blood 146 mg/dL (75-99)
[2019-04-02] MEDS: HEPARIN SOD,PORK IN 0.45% NACL 25,000 UNIT in 0.45% NACL 1 250ML.BAG IV SCH (18:40)
[2019-04-02] MEDS: BUDESONIDE 0.5 MG/2 ML NEBU INHALATION SCH (18:53)
[2019-04-02 20:01] LABS: Glucose,Whole Blood 165 mg/dL (75-99)
[2019-04-02] MEDS: ATORVASTATIN 40 MG TAB PO SCH (21:45)
[2019-04-03 06:23] LABS: Basophils % (A) 0 %; Eosinophils # (A) 0.2 k/uL (0-0.7); Eosinophils % (A) 1 %; HCT 46.2 % (34.0-46.0); HGB 14.5 gm/dL (11.4-16.0); Lymphocytes # (A) 1.2 k/uL (1.0-4.8); Lymphocytes % (A) 8 %; MCH 29.7 pg (25.0-35.0); MCHC 31.4 g/dL (31.0-37.0); MCV 94.6 fL (80.0-100.0); Mean Platelet Volume 7.4; Monocytes # (A) 0.2 k/uL (0-1.0); Monocytes % (A) 2 %; Neutrophils # (A) 13.4 k/uL (1.3-7.7); Neutrophils % (A) 89 %; Platelet Count 331 k/uL (150-450); RBC 4.89 m/uL (3.80-5.40); RDW 13.9 % (11.5-15.5); WBC 15.1 k/uL (3.8-10.6)
[2019-04-03 06:25] LABS: Glucose,Whole Blood 166 mg/dL (75-99)
[2019-04-03] MEDS: ASPIRIN 81 MG PO SCH (06:28)
[2019-04-03] MEDS: methylPREDNISolone SOD SUCCI 40 MG/ML 1 ML VIAL IV SCH (06:28)
[2019-04-03] MEDS: CYCLOBENZAPRINE 5 MG TAB PO SCH ×3 (06:28→21:24)
[2019-04-03] MEDS: PANTOPRAZOLE 40 MG TABLET PO SCH (06:28)
[2019-04-03] MEDS: METOPROLOL TARTRATE 25 MG TAB PO SCH ×2 (06:28→22:17)
[2019-04-03] MEDS: Acetaminophen-Codeine 300-30mg TAB PO PRN ×3 (06:48→21:24)
[2019-04-03] MEDS: IPRATROPIUM-ALBUTEROL 3 ML NEB INHALATION SCH ×3 (08:13→19:53)
[2019-04-03] MEDS: BUDESONIDE 0.5 MG/2 ML NEBU INHALATION SCH ×2 (08:13→19:53)
[2019-04-03] MEDS ORDERED: VERAPAMIL 2.5 MG/ML 2 ML AMP ONE (09:20)
[2019-04-03] MEDS ORDERED: LIDOCAINE 1% INJ 10MG/ML (20 ML MDV) ONE (09:21)
[2019-04-03] MEDS ORDERED: IV FLUID CONTINUATION 200 ML IV ONE (09:34)
[2019-04-03] MEDS ORDERED: HYDROmorphone 1 MG/ML 1 ML SYRINGE ONE (09:46)
[2019-04-03] MEDS ORDERED: HYDROmorphone 1 MG/ML 1 ML SYRINGE IVP ONE (09:48)
[2019-04-03] MEDS ORDERED: MIDAZOLAM 2 MG/2 ML VIAL IV ONE (09:48)
[2019-04-03] MEDS ORDERED: LIDOCAINE 1% INJ 10MG/ML (20 ML MDV) SQ ONE (09:55)
[2019-04-03] MEDS ORDERED: HEPARIN SODIUM 1,000 UN/ML (10ML VL) ONE (09:59)
[2019-04-03] MEDS: VERAPAMIL SYRINGE (5 MG/10 ML) INTRAARTER ONE ×2 (10:00→10:15)
[2019-04-03] MEDS ORDERED: HEPARIN SODIUM 1,000 UN/ML (10ML VL) IV ONE (10:01)
[2019-04-03] MEDS ORDERED: SODIUM CHLORIDE 0.9% 1,000 ML IV ONE (10:04)
[2019-04-03] MEDS ORDERED: IOPAMIDOL-370 100ML BTL INJ ONE (10:15)
[2019-04-03] MEDS ORDERED: RX INFO: IV CONTRAST WAS GIVEN 1 EACH MISC MISCELLANE PRN (10:30)
--- NOTE | 2019-04-03 11:14 | CC ---
CARDIAC CATHETERIZATION REPORT DATE OF SERVICE: 04/03/2019 PROCEDURE: Left heart catheterization and coronary angiography. PERFORMED BY: Dr. Sarah Daniel. Moderate conscious sedation time was 24 minutes. The patient was administered Versed. Oxygen saturation, hemodynamics and EKG were monitored closely. CLINICAL INFORMATION: Mrs. Renteria is a 54-year-old lady with history of smoking, avascular necrosis of the hip, who has been having significant chest pain, was scheduled for hip surgery. She came into the hospital with a history of chest pain that occurred 3 days ago. Troponin was elevated at 2.9, but steadily came down, suggesting that the infarction that she has suffered is probably at least 4-day-old. She had no further chest pain. She was comfortable resting. Given her presentation of non-ST elevation NM, subacute in nature, she was advised coronary angiography. Risks, benefits, options, rationale were explained. Patient advised the procedure from the right radial approach. PROCEDURE NOTE: Under local anesthesia and strict aseptic precautions, a 6-Sami introducer was placed in the right radial artery. Using JL 3.5 and JR 4.0 catheters, I performed selective coronary angiography and the right catheter was used to check LV pressures. LV gram was not performed. The sheath was taken out and a TR band applied as per protocol and patient sent to the room in stable condition. The saturation of the fingers of the right hand was about 94%. CARDIAC CATHETERIZATION FINDINGS: The left foot end-diastolic pressure was 13-14 mmHg without any gradient across the aortic valve. CORONARY ANGIOGRAPHY FINDINGS: RIGHT CORONARY ARTERY: This is probably a non-dominant or codominant vessel. This vessel is totally occluded in the midportion with late filling seen and the vessel appears to be relatively small in caliber and there is some competitive flow with collaterals coming from the left system. LEFT MAIN CORONARY ARTERY: Short patent vessel that bifurcates into LAD, ramus, and circumflex coronary artery. Left main is short and free of significant disease. LEFT ANTERIOR DESCENDING CORONARY ARTERY: Good caliber vessel., extends along the anterior wall, gives off a large septal and diagonal branches,. runs all the way to the apex, has no significant disease. The LAD itself is free of significant disease and has minor irregularities. RAMUS INTERMEDIUS: This is a small caliber, small distribution disease-free vessel that runs laterally. LEFT POSTERIOR CIRCUMFLEX CORONARY ARTERY: Probably a dominant vessel, gives off a large obtuse marginal that divides into 2 further branches and then ]mare circumflex gives off the PDA branch and there are only minor irregularities. No significant disease. There are collaterals coming both from the LAD as well as circumflex opacifying the distal branches of the RCA. RCA therefore is probably a codominant vessel, but distal branches are being opacified by the left system suggesting that this infarction is a few days old and collaterals have already developed. Left ventriculogram was not performed. FINAL IMPRESSION: This patient has a subtotal occlusion or probably total occlusion, subacute in nature off RCA with good collateralization from the left system. Filling pressures are normal. No gradient across aortic valve. No significant disease in the codominant circumflex or the LAD are and a small ramus. RECOMMENDATIONS: This patient is having intractable hip pain and is scheduled for avascular necrosis of hip surgery. She has no further chest pain. Echo revealed good systolic function. There is decent collateralization of the left system and her infarction is completed. Given this, I believe under the circumstances she can go ahead for the hip surgery, which seems to be her most limiting factor and if there is a lot of ischemia based on a subsequent stress test, we can always do intervention of the RCA as a total occlusion if necessary, which I suspect will not be needed given the fact her LV function is good without wall motion and there are already good collaterals from the left system. Therefore I am recommending medical therapy and can proceed with surgery. The risk is higher but not prohibitive. I discussed my thoughts with the patient and also with Dr. Syed who is also going to talk to the primary care physician as well as the orthopedic surgeon and make further recommendations. I discussed my thoughts in detail with the patient but there were no family members available. MMODL / IJN: [id number] /
[2019-04-03 11:37] LABS: Glucose,Whole Blood 188 mg/dL (75-99)
--- NOTE | 2019-04-03 12:01 | P.DS ---
Providers Date of admission: 04/01/19 20:56 Expected date of discharge: 04/03/19 Attending physician: Real Finney MD Consults: 04/01/19 20:56 Consult Physician Urgent Consulting Provider: Fiona Daniel Consult Reason/Comments: nstemi Do you want consulting provider notified?: Already Contacted Primary care physician: Noemy Valencia [facility] Course: This is a 54-year-old female patient of Dr. Valencia with past medical history of asthma, possible COPD, migraine headaches, active tobacco use and dependence, avascular necrosis of the right hip. Patient states that she saw Dr. Valencia yesterday for preop clearance for right hip surgery with Dr. Pryor it is scheduled for April 28. Patient then related to her physician that she had chest pain. Patient has been having chest pain for about one week one episode was quite severe was tightness and heartburn type symptoms. She has had several repeat episodes or less severe. She denies having any nausea. Patient had an EKG that was mildly abnormal in the office and troponin was ordered. Patient received a call that her troponin came back at 3 was advised to come in the hospital for further evaluation. Patient denies any chest pain at this time. She is complaining of significant right hip pain and states that she is unable to lay flat due to pain in her hip. She has been off work since October 2018 waiting for hip surgery. The patient was placed on doxycycline, prednisone taper by Dr. Valencia. Patient presented to [facility] emergency center for evaluation. She was afebrile, heart rate 91, blood pressure 118/75 and pulse ox 99% on room air. EKG was a sinus rhythm with changes in the inferior lead suggestive of inferior [place]. WBC 12.3, hemoglobin 14.3. Electrolytes within normal limits, creatinine 0.76 and BUN 22, AST 43. Repeat troponins were 2.8 and 2.340. Triglycerides 250, cholesterol 198, LDL 112, HDL 36. Patient was started on aspirin, atorvastatin, heparin drip, Lopressor 25 mg twice daily and admitted to the cardiac stepdown unit. Patient has been seen by cardiology with plan for echocardiogram and heart catheterization tomorrow. Patient is also complaining of wheezing for which nebulizer treatments and Solu-Medrol added. Patient is concerned about laying flat due for heart catheterization due to hip pain. Dilaudid will be added and heart catheterization is planned via wrist. 04/03: Patient underwent a heart catheterization today with Dr. ALLIE Daniel and found to have subtotal occlusion or probable total occlusion, subacute of the RCA with good collateralization from the left system. Filling pressures are normal. No gradient across the aortic valve. No significant disease in the codominant circumflex or the LAD. Echocardiogram revealed good systolic function. Dr. Daniel has given patient's clearance for hip surgery and intervention of the RCA suspected not be necessary due to good LV function and collaterals. Recommend medical therapy and may proceed with surgery. This morning, patient is chest pain-free. Her respiratory status is much improved. Discussed with patient that she will need follow-up with Dr. Valencia and have eliane johnny from her prior to surgery. Discharge diagnoses: 1. Subacute inferior myocardial infarction. 2. Acute COPD exacerbation, possible acute asthma exacerbation. 3. History of mild persistent asthma. 4. Suspect COPD due to 41 year history of smoking 1 - 1 1/2 packs per day. 5. Dyslipidemia. 6. Morbid obesity with BMI of 46. 7. Avascular necrosis of the right hip. 8. Tobacco use and dependence. 9. Gastroesophageal reflux disease Discharge plan: Return home Impression and plan of care have been directed as dictated by the signing physician. Megan Rico nurse practitioner acting as scribe for signing physician. Patient Condition at Discharge: Good Plan - Discharge Summary Discharge Rx Participant: No New Discharge Prescriptions: New Aspirin 81 mg PO DAILY chew Losartan [Cozaar] 50 mg PO DAILY@2100 #30 tab Nicotine 14Mg/24Hr Patch [Habitrol] 1 patch TRANSDERM DAILY #30 patch Atorvastatin [Lipitor] 40 mg PO HS #30 tab Metoprolol Tartrate [Lopressor] 25 mg PO BID #60 tab Nitroglycerin Sl Tabs [Nitrostat] 0.4 mg SUBLINGUAL Q5M PRN #25 tab PRN Reason: Chest Pain Pantoprazole [Protonix] 40 mg PO DAILY #14 tablet.dr Continue Furosemide [Lasix] 40 mg PO DAILY #3 tablet Potassium Chloride ER [K-Dur 20] 20 meq PO DAILY Ipratropium/Albuterol Sulfate [Combivent Respimat Inhaler] 1 puff INHALATION RT-QID predniSONE [Deltasone] See Taper PO DAILY Doxycycline Monohydrate [Monodox] 100 mg PO BID Cyclobenzaprine [Flexeril] 5 mg PO TID Acetaminophen with Codeine [Tylenol with Codeine #4 Tablet] 1 tab PO QID Discontinued Phentermine HCl [Adipex-P] 37.5 mg PO DAILY Naproxen Sodium [Aleve] 220 mg PO BID PRN PRN Reason: Pain Discharge Medication List Furosemide [Lasix] 40 mg PO DAILY #3 tablet 04/11/18 [Rx] Acetaminophen with Codeine [Tylenol with Codeine #4 Tablet] 1 tab PO QID 04/01/19 [History] Cyclobenzaprine [Flexeril] 5 mg PO TID 04/01/19 [History] Doxycycline Monohydrate [Monodox] 100 mg PO BID 04/01/19 [History] Ipratropium/Albuterol Sulfate [Combivent Respimat Inhaler] 1 puff INHALATION RT- QID 04/01/19 [History] Potassium Chloride ER [K-Dur 20] 20 meq PO DAILY 04/01/19 [History] predniSONE [Deltasone] See Taper PO DAILY 04/01/19 [History] Aspirin 81 mg PO DAILY chew 04/03/19 [Rx] Atorvastatin [Lipitor] 40 mg PO HS #30 tab 04/03/19 [Rx] Losartan [Cozaar] 50 mg PO DAILY@2100 #30 tab 04/03/19 [Rx] Metoprolol Tartrate [Lopressor] 25 mg PO BID #60 tab 04/03/19 [Rx] Nicotine 14Mg/24Hr Patch [Habitrol] 1 patch TRANSDERM DAILY #30 patch 04/03/19 [Rx] Nitroglycerin Sl Tabs [Nitrostat] 0.4 mg SUBLINGUAL Q5M PRN #25 tab 04/03/19 [Rx] Pantoprazole [Protonix] 40 mg PO DAILY #14 tablet. 04/03/19 [Rx] Follow up Appointment(s)/Referral(s): Venancio Syed MD [STAFF PHYSICIAN] - 04/10/19 9:45 am (Follow-up with Dr. Syed/Courtney Higginbotham/Elza Álvarez. Locksmith Helper - with Elza [facility].) Noemy Valencia MD [Primary Care Provider] - 1 Week (Please call office during normal business hours to schedule follow up appointment. ) Patient Instructions/Handouts: Heart Attack (DC), How to Stop Smoking (DC), Heart Healthy Diet (DC), COPD (Chronic Obstructive Pulmonary Disease) (DC), After Radial Heart Catheterization (GEN) Activity/Diet/Wound Care/Special Instructions: CARDIAC CATH 1. Support your puncture site by applying firm, steady pressure whenever you cough, laugh, sneeze or bear down to have a bowel movement (2-day restriction). 2. Watch for any excessive bruising, active bleeding, a firm knot forming under your skin, extreme tenderness and signs of infection (redness, swelling, fever). 3. Shower daily, do not soak puncture in a tub bath, jacuzzi, pool, morejon etc. for 1 week. This is to prevent risk of infection. 4. Drink plenty of fluids the day of and day after your procedure to flush contrast dye out of your kidneys. 5. Take all medications as directed. Never stop any new medication without your physicians OK. 6. No driving for 2 days after procedure. 7. 10- pound weight lifting restriction for 1 week. 8. Low sodium/low fat diet. 9. Activity limited until follow up appointment with your metal bed assembler. In case of any problems, please call [facility] [place] @ [phone]. Discharge Disposition: HOME SELF-CARE
[2019-04-03] MEDS: NICOTINE 14MG/24HR PATCH TRANSDERM SCH (12:47)
--- NOTE | 2019-04-03 14:38 | P.PN ---
Subjective Progress Note Date: 04/03/19 This is a 54-year-old female patient of Dr. Valencia with past medical history of asthma, possible COPD, migraine headaches, active tobacco use and dependence, avascular necrosis of the right hip. Patient states that she saw Dr. Valencia yesterday for preop clearance for right hip surgery with Dr. Pryor it is scheduled for April 28. Patient then related to her physician that she had chest pain. Patient has been having chest pain for about one week one episode was quite severe was tightness and heartburn type symptoms. She has had several repeat episodes or less severe. She denies having any nausea. Patient had an EKG that was mildly abnormal in the office and troponin was ordered. Patient received a call that her troponin came back at 3 was advised to come in the hospital for further evaluation. Patient denies any chest pain at this time. She is complaining of significant right hip pain and states that she is unable to lay flat due to pain in her hip. She has been off work since October 2018 waiting for hip surgery. The patient was placed on doxycycline, prednisone taper by Dr. Valencia. Patient presented to [facility] emergency center for evaluation. She was afebrile, heart rate 91, blood pressure 118/75 and pulse ox 99% on room air. EKG was a sinus rhythm with changes in the inferior lead suggestive of inferior MS. WBC 12.3, hemoglobin 14.3. Electrolytes within normal limits, creatinine 0.76 and BUN 22, AST 43. Repeat troponins were 2.8 and 2.340. Triglycerides 250, cholesterol 198, LDL 112, HDL 36. Patient was started on aspirin, atorvastatin, heparin drip, Lopressor 25 mg twice daily and admitted to the cardiac stepdown unit. Patient has been seen by cardiology with plan for echocardiogram and heart catheterization tomorrow. Patient is also complaining of wheezing for which nebulizer treatments and Solu-Medrol added. Patient is concerned about laying flat due for heart catheterization due to hip pain. Dilaudid will be added and heart catheterization is planned via wrist. 04/03: Patient underwent a heart catheterization today with Dr. ALLIE Daniel and found to have subtotal occlusion or probable total occlusion, subacute of the RCA with good collateralization from the left system. Filling pressures are normal. No gradient across the aortic valve. No significant disease in the codominant circumflex or the LAD. Echocardiogram revealed good systolic function. Dr. Daniel has given patient's clearance for hip surgery and intervention of the RCA suspected not be necessary due to good LV function and collaterals. Recommend medical therapy and may proceed with surgery. This morning, patient is chest pain-free. Her respiratory status is much improved. Discussed with patient that she will need follow-up with Dr. Valencia and have clearance from her prior to surgery. Patient currently denies any chest pain or shortness of breath. Plan is to monitor overnight and discharged home tomorrow. Review of Systems Constitutional: Denies chills, Denies fever, Denies poor appetite, Denies weakness Eyes: denies blurred vision, denies pain Ears, nose, mouth and throat: Denies dysphagia, Denies headache, Denies nasal congestion, Denies nasal discharge, Denies sore throat, Denies vertigo Cardiovascular: Denies shortness of breath, Denies chest pain, Denies edema, Denies leg edema, Denies lightheadedness, Denies syncope Respiratory: Denies cough, denies cough with sputum, denies dyspnea, Reports wheezing, Denies excessive sputum, Denies hemoptysis, Denies home oxygen Gastrointestinal: Denies abdominal pain, Denies diarrhea, Denies loss of appetite, Denies nausea, Denies vomiting Genitourinary: Denies dysuria, Denies hematuria, Denies urgency, Denies urinary frequency Musculoskeletal: Reports gait dysfunction, Denies frequent falls, Denies myalgias Musculoskeletal: right: hip pain, hip stiffness Integumentary: Denies pruritus, Denies rash, Denies wounds Neurological: Denies change in mentation, Denies change in speech, Denies numbness, Denies weakness Psychiatric: Denies anxiety, Denies depression Endocrine: Denies fatigue, Denies weight change Objective - Vital Signs Vital signs: Vital Signs Temp 98.4 F 04/03/19 08:00 Pulse 85 04/03/19 11:41 Resp 20 04/03/19 08:00 BP 134/59 04/03/19 08:00 Pulse Ox 98 04/03/19 08:00 Intake & Output 04/02/19 04/03/19 04/03/19 18:59 06:59 18:59 Intake Total 659.000 644 Balance 659.000 644 Weight 128.1 kg Intake: IV 200 Intake, IV Titration 179.000 Amount Heparin Sod,Pork in 0.45% 179.000 NaCl 25,000 unit In 0.45 % NaCl 1 250ml.bag @ 7. 818 UNITS/KG/HR 10 mls/hr IV .Q24H [facility] Rx#: [id number] Oral [id number] Other: Voiding Method Toilet Diaper Incontinent # Voids 3 1 1 # Bowel Movements 0 - Exam Gen: This is a morbidly obese 54-year-old female. Patient is resting in bed and appears to be in no acute distress. HEENT: Head is atraumatic, normocephalic. Pupils equal, round. Sclerae is anicteric. NECK: Supple. No JVD. No lymphadenopathy. No thyromegaly. LUNGS: Scattered expiratory wheezing. No intercostal retractions. HEART: Regular rate and rhythm. No murmur. ABDOMEN: Soft. Bowel sounds are present. No masses. No tenderness. EXTREMITIES: No pedal edema. No calf tenderness. NEUROLOGICAL: Patient is awake, alert and oriented x3. Cranial nerves 2 through 12 are grossly intact. - Labs CBC & Chem 7: 04/03/19 06:13 04/01/19 19:32 Labs: Abnormal Lab Results - Last 24 Hours (Table) 04/02/19 04/02/19 04/02/19 Range/Units 16:37 17:01 19:59 WBC (3.8-10.6) k/uL Hct (34.0-46.0) % Neutrophils # (1.3-7.7) k/uL APTT 31.0 H (22.0-30.0) sec POC Glucose (mg/dL) 146 H 165 H (75-99) mg/dL 04/03/19 04/03/19 04/03/19 Range/Units 06:13 06:13 06:24 WBC 15.1 H (3.8-10.6) k/uL Hct 46.2 H (34.0-46.0) % Neutrophils # 13.4 H (1.3-7.7) k/uL APTT 53.5 H (22.0-30.0) sec POC Glucose (mg/dL) 166 H (75-99) mg/dL 04/03/19 Range/Units 11:36 WBC (3.8-10.6) k/uL Hct (34.0-46.0) % Neutrophils # (1.3-7.7) k/uL APTT (22.0-30.0) sec POC Glucose (mg/dL) 188 H (75-99) mg/dL Assessment and Plan Plan: 1. Subacute inferior myocardial infarction. MS most likely occurred 1 week ago at time of initial chest pain. Continue aspirin 81 mg daily, atorvastatin 40 mg at bedtime, Lopressor 25 mg twice daily, Nitrostat as needed. Patient has been seen by cardiology. Cardiology consult appreciated. Status post heart catheterization with plan for medical management. 2. Acute COPD exacerbation, possible acute asthma exacerbation. Patient starte d on DuoNeb treatments scheduled 3 times daily and as needed, Pulmicort 0.5 mg twice daily, Solu-Medrol transitioned to oral prednisone. 3. History of mild persistent asthma. Continue as in #2. 4. Suspect COPD due to 41 year history of smoking 1 - 1 1/2 packs per day. Continue as in #2. 5. Dyslipidemia. Continue atorvastatin. 6. Morbid obesity with BMI of 46. Patient has been on Adipex which will be on hold. 7. Avascular necrosis of the right hip. Patient has been seen by Dr. Pryor with tentative plan for surgical intervention on April 28. Dilaudid 1 mg IV push will be added for pain, continue Flexeril 5 mg 3 times daily.. 8. Tobacco use and dependence. Nicotine patch. 9. Gastroesophageal reflux disease and GI prophylaxis. Protonix. 10. DVT prophylaxis. Heparin. 11. Hypertension. Patient was started on losartan. Discharge plan: Return home on Saturday. Impression and plan of care have been directed as dictated by the signing physician. Megan Rico nurse practitioner acting as scribe for signing physician.
[2019-04-03 14:56] LABS: African American GFR (CKD) >90 (>60 ml/min/1.73 sqM); Anion Gap 12 mmol/L; Blood Urea Nitrogen 21 mg/dL (7-17); Calcium 9.5 mg/dL (8.4-10.2); Carbon Dioxide 17 mmol/L (22-30); Chloride 112 mmol/L (98-107); Glucose 169 mg/dL (74-99); Non-African American GFR(CKD) >90 (>60 ml/min/1.73 sqM); Potassium 4.8 mmol/L (3.5-5.1); Sodium 141 mmol/L (137-145)
[2019-04-03 16:41] LABS: Glucose,Whole Blood 179 mg/dL (75-99)
[2019-04-03] MEDS: HYDROmorphone 1 MG/ML 1 ML SYRINGE IVP PRN (16:53)
[2019-04-03] MEDS: ALPRAZolam 0.25 MG TAB PO PRN (16:53)
[2019-04-03] MEDS: HEPARIN SODIUM,PORCINE 5,000 UNIT/ML 1 ML VIAL SQ SCH ×2 (18:17→22:17)
[2019-04-03] MEDS: SODIUM CHLORIDE 0.9% 1,000 ML IV SCH ×2 (18:17→22:26)
[2019-04-03 20:46] LABS: Glucose,Whole Blood 179 mg/dL (75-99)
[2019-04-03] MEDS ORDERED: LOSARTAN 50 MG TAB PO SCH (21:00)
[2019-04-03] MEDS: ATORVASTATIN 40 MG TAB PO SCH (22:17)
[2019-04-04] MEDS: ALPRAZolam 0.25 MG TAB PO PRN (01:49)
[2019-04-04] MEDS: HYDROmorphone 1 MG/ML 1 ML SYRINGE IVP PRN (01:49)
[2019-04-04 06:29] LABS: Basophils % (A) 0 %; Eosinophils # (A) 0.1 k/uL (0-0.7); Eosinophils % (A) 0 %; HCT 43.2 % (34.0-46.0); HGB 13.4 gm/dL (11.4-16.0); Hypochromasia Slight; Lymphocytes # (A) 2.2 k/uL (1.0-4.8); Lymphocytes % (A) 12 %; MCH 29.5 pg (25.0-35.0); Mean Platelet Volume 7.8; Monocytes # (A) 1.1 k/uL (0-1.0); Monocytes % (A) 6 %; Neutrophils # (A) 14.7 k/uL (1.3-7.7); Neutrophils % (A) 80 %; Platelet Count 368 k/uL (150-450); RBC 4.55 m/uL (3.80-5.40); RDW 13.8 % (11.5-15.5); WBC 18.2 k/uL (3.8-10.6)
[2019-04-04] MEDS: BUDESONIDE 0.5 MG/2 ML NEBU INHALATION SCH (07:34)
[2019-04-04] MEDS: IPRATROPIUM-ALBUTEROL 3 ML NEB INHALATION SCH (07:34)
[2019-04-04] MEDS: ASPIRIN 81 MG PO SCH (08:19)
[2019-04-04] MEDS: METOPROLOL TARTRATE 25 MG TAB PO SCH (08:20)
[2019-04-04] MEDS: NICOTINE 14MG/24HR PATCH TRANSDERM SCH ×2 (08:20→08:27)
[2019-04-04] MEDS: Acetaminophen-Codeine 300-30mg TAB PO PRN (08:20)
[2019-04-04] MEDS: HEPARIN SODIUM,PORCINE 5,000 UNIT/ML 1 ML VIAL SQ SCH ×2 (08:20→08:27)
[2019-04-04] MEDS: PANTOPRAZOLE 40 MG TABLET PO SCH (08:20)
[2019-04-04] MEDS: CYCLOBENZAPRINE 5 MG TAB PO SCH (08:20)
[2019-04-04] MEDS ORDERED: predniSONE 20 MG TAB PO SCH (09:00)
[2019-04-04 10:37] VITALS: BP 119/55; PULSE 91; RESP 20; TEMP 98
--- NOTE | 2019-04-04 12:48 | P.DS ---
Providers Date of admission: 04/01/19 20:56 Attending physician: Real Finney MD Consults: 04/01/19 20:56 Consult Physician Urgent Consulting Provider: Fiona Daniel Consult Reason/Comments: nstemi Do you want consulting provider notified?: Already Contacted Primary care physician: Noemy Valencia [facility] Course: This is a 54-year-old female patient of Dr. Valencia with past medical history of asthma, possible COPD, migraine headaches, active tobacco use and dependence, avascular necrosis of the right hip. Patient states that she saw Dr. Valencia yesterday for preop clearance for right hip surgery with Dr. Pryor it is scheduled for April 28. Patient then related to her physician that she had chest pain. Patient has been having chest pain for about one week one episode was quite severe was tightness and heartburn type symptoms. She has had several repeat episodes or less severe. She denies having any nausea. Patient had an EKG that was mildly abnormal in the office and troponin was ordered. Patient received a call that her troponin came back at 3 was advised to come in the hospital for further evaluation. Patient denies any chest pain at this time. She is complaining of significant right hip pain and states that she is unable to lay flat due to pain in her hip. She has been off work since October 2018 waiting for hip surgery. The patient was placed on doxycycline, prednisone taper by Dr. Valencia. Patient presented to [facility] emergency center for evaluation. She was afebrile, heart rate 91, blood pressure 118/75 and pulse ox 99% on room air. EKG was a sinus rhythm with changes in the inferior lead suggestive of inferior OH. WBC 12.3, hemoglobin 14.3. Electrolytes within normal limits, creatinine 0.76 and BUN 22, AST 43. Repeat troponins were 2.8 and 2.340. Triglycerides 250, cholesterol 198, LDL 112, HDL 36. Patient was started on aspirin, atorvastatin, heparin drip, Lopressor 25 mg twice daily and admitted to the cardiac stepdown unit. Patient has been seen by cardiology with plan for echocardiogram and heart catheterization tomorrow. Patient is also complaining of wheezing for which nebulizer treatments and Solu-Medrol added. Patient is concerned about laying flat due for heart catheterization due to hip pain. Dilaudid will be added and heart catheterization is planned via wrist. 1/24: Patient underwent a heart catheterization today with Dr. ALLIE Daniel and found to have subtotal occlusion or probable total occlusion, subacute of the RCA with good collateralization from the left system. Filling pressures are normal. No gradient across the aortic valve. No significant disease in the codominant circumflex or the LAD. Echocardiogram revealed good systolic function. Dr. Daniel has given patient's clearance for hip surgery and intervention of the RCA suspected not be necessary due to good LV function and collaterals. Recommend medical therapy and may proceed with surgery. This morning, patient is chest pain-free. Her respiratory status is much improved. Discussed with patient that she will need follow-up with Dr. Valencia and have clearance from her prior to surgery. 12/03 patient examined, no chest pain no shortness of breath. Breathing is improved on current regimen of Medrol and breathing treatment. Vital signs temp is 97 is pulse 88 respiratory rate 18 blood pressure 101/57 is saturating at 95% on room air. Labs suggestive leukocytosis of 18.2 likely secondary to steroids, blood sugar ranging from 160-180. LDL 112 triglycerides 250. Patient completed the prednisone and antibiotic course and will follow up with Dr. Ramires as outpatient PE - Constitutional General appearance: cooperative, no acute distress, obese - EENT Eyes: anicteric sclerae, PERRLA, normal appearance ENT: hearing grossly normal - Neck Neck: no lymphadenopathy, normal ROM, no other, no rigidity, no stridor, no thyromegaly - Respiratory Respiratory: bilateral: CTA, negative: diminished, dullness, rales, rhonchi - Cardiovascular Rhythm: regular Heart sounds: normal: S1, S2 Abnormal Heart Sounds: no systolic murmur, no diastolic murmur, no rub, no S3 Gallop, no S4 Gallop, no click, no other - Gastrointestinal General gastrointestinal: normal bowel sounds, soft - Integumentary Integumentary: no rash - Neurologic Neurologic: CNII-XII intact - Musculoskeletal Musculoskeletal: gait normal, strength equal bilaterally - Psychiatric Psychiatric: A&O x's 3, appropriate affect Discharge diagnoses: 1. Subacute inferior myocardial infarction. 2. Acute COPD exacerbation, possible acute asthma exacerbation. 3. History of mild persistent asthma. 4. Suspect COPD due to 41 year history of smoking 1 - 1 1/2 packs per day. 5. Dyslipidemia. 6. Morbid obesity with BMI of 46. 7. Avascular necrosis of the right hip. 8. Tobacco use and dependence. 9. Gastroesophageal reflux disease Discharge plan: Return home Patient Condition at Discharge: Good Plan - Discharge Summary Discharge Rx Participant: No New Discharge Prescriptions: New Aspirin 81 mg PO DAILY chew Losartan [Cozaar] 50 mg PO DAILY@2100 #30 tab Nicotine 14Mg/24Hr Patch [Habitrol] 1 patch TRANSDERM DAILY #30 patch Atorvastatin [Lipitor] 40 mg PO HS #30 tab Metoprolol Tartrate [Lopressor] 25 mg PO BID #60 tab Nitroglycerin Sl Tabs [Nitrostat] 0.4 mg SUBLINGUAL Q5M PRN #25 tab PRN Reason: Chest Pain Pantoprazole [Protonix] 40 mg PO DAILY #14 tablet.dr Continue Furosemide [Lasix] 40 mg PO DAILY #3 tablet Potassium Chloride ER [K-Dur 20] 20 meq PO DAILY Ipratropium/Albuterol Sulfate [Combivent Respimat Inhaler] 1 puff INHALATION RT-QID predniSONE [Deltasone] See Taper PO DAILY Doxycycline Monohydrate [Monodox] 100 mg PO BID Cyclobenzaprine [Flexeril] 5 mg PO TID Acetaminophen with Codeine [Tylenol with Codeine #4 Tablet] 1 tab PO QID Discontinued Phentermine HCl [Adipex-P] 37.5 mg PO DAILY Naproxen Sodium [Aleve] 220 mg PO BID PRN PRN Reason: Pain Discharge Medication List Furosemide [Lasix] 40 mg PO DAILY #3 tablet 04/11/18 [Rx] Acetaminophen with Codeine [Tylenol with Codeine #4 Tablet] 1 tab PO QID 04/01/19 [History] Cyclobenzaprine [Flexeril] 5 mg PO TID 04/01/19 [History] Doxycycline Monohydrate [Monodox] 100 mg PO BID 04/01/19 [History] Ipratropium/Albuterol Sulfate [Combivent Respimat Inhaler] 1 puff INHALATION RT- QID 04/01/19 [History] Potassium Chloride ER [K-Dur 20] 20 meq PO DAILY 04/01/19 [History] predniSONE [Deltasone] See Taper PO DAILY 04/01/19 [History] Aspirin 81 mg PO DAILY chew 04/03/19 [Rx] Atorvastatin [Lipitor] 40 mg PO HS #30 tab 04/03/19 [Rx] Losartan [Cozaar] 50 mg PO DAILY@2100 #30 tab 04/03/19 [Rx] Metoprolol Tartrate [Lopressor] 25 mg PO BID #60 tab 04/03/19 [Rx] Nicotine 14Mg/24Hr Patch [Habitrol] 1 patch TRANSDERM DAILY #30 patch 04/03/19 [Rx] Nitroglycerin Sl Tabs [Nitrostat] 0.4 mg SUBLINGUAL Q5M PRN #25 tab 04/03/19 [Rx] Pantoprazole [Protonix] 40 mg PO DAILY #14 tablet. 04/03/19 [Rx] Follow up Appointment(s)/Referral(s): Venancio Syed MD [STAFF PHYSICIAN] - 04/10/19 9:45 am (Follow-up with Dr. Syed/Courteny Higginbotham/Elza Álvarez. Online Marketing Director - with [facility].) Noemy Valencia MD [Primary Care Provider] - 1 Week Patient Instructions/Handouts: Heart Attack (DC), How to Stop Smoking (DC), Heart Healthy Diet (DC), COPD (Chronic Obstructive Pulmonary Disease) (DC) Activity/Diet/Wound Care/Special Instructions: CARDIAC CATH 1. Support your puncture site by applying firm, steady pressure whenever you cough, laugh, sneeze or bear down to have a bowel movement (2-day restriction). 2. Watch for any excessive bruising, active bleeding, a firm knot forming under your skin, extreme tenderness and signs of infection (redness, swelling, fever). 3. Shower daily, do not soak puncture in a tub bath, jacuzzi, pool, morejon etc. for 1 week. This is to prevent risk of infection. 4. Drink plenty of fluids the day of and day after your procedure to flush contrast dye out of your kidneys. 5. Take all medications as directed. Never stop any new medication without your physicians OK. 6. No driving for 2 days after procedure. 7. 10- pound weight lifting restriction for 1 week. 8. Low sodium/low fat diet. 9. Activity limited until follow up appointment with your clerical production worker. In case of any problems, please call [facility] [place] @ [phone]. Discharge Disposition: HOME SELF-CARE
== END 2019-04-04 12:00 | disposition home or self-care (01) | DRG 281 ==
LOC: EC 18:49 → 3SCARD 20:56
PROVIDERS: ADMIT Internal Medicine; ATTEND Internal Medicine
PROC: B2111ZZ Fluoroscopy of Multiple Coronary Arteries using Low Osmolar Contrast (ICD-10-PCS; principal; 2019-04-03 09:00)
PROC: 4A023N7 Measurement of Cardiac Sampling and Pressure, Left Heart, Percutaneous Approach (ICD-10-PCS; principal; 2019-04-03 09:00)
DX: I21.19 ST elevation (STEMI) myocardial infarction involving other coronary artery of inferior wall (principal); J44.1 Chronic obstructive pulmonary disease with (acute) exacerbation; J45.31 Mild persistent asthma with (acute) exacerbation; M87.9 Osteonecrosis, unspecified; Z68.42 Body mass index [BMI] 45.0-49.9, adult; E11.9 Type 2 diabetes mellitus without complications; E66.01 Morbid (severe) obesity due to excess calories; E78.5 Hyperlipidemia, unspecified; F17.210 Nicotine dependence, cigarettes, uncomplicated; K21.9 Gastro-esophageal reflux disease without esophagitis; G43.909 Migraine, unspecified, not intractable, without status migrainosus; I83.90 Asymptomatic varicose veins of unspecified lower extremity; M19.90 Unspecified osteoarthritis, unspecified site; R32 Unspecified urinary incontinence; Z86.14 Personal history of Methicillin resistant Staphylococcus aureus infection; Z79.82 Long term (current) use of aspirin; Z79.899 Other long term (current) drug therapy; Z88.1 Allergy status to other antibiotic agents; Z88.2 Allergy status to sulfonamides; Z82.5 Family history of asthma and other chronic lower respiratory diseases; Z83.3 Family history of diabetes mellitus; Z80.9 Family history of malignant neoplasm, unspecified; Z84.1 Family history of disorders of kidney and ureter
CPT/HCPCS: 36415; 71046; 80048; 80053; 80061; 83735; 84484; 85025; 85610; 85730; 93005; 93306; 93458; 94640; 94760; 96365; 96376; 99285

== ENCOUNTER → 2019-10-09 | Outpatient (CLI) | payer OTHER | END | disposition home or self-care (01) | LOC: LABPAT 13:47 | PROVIDERS: ATTEND Orthopaedic Surgery | DX: Z01.818 Encounter for other preprocedural examination (principal); Z01.812 Encounter for preprocedural laboratory examination | CPT/HCPCS: 36415; 86850; 86900; 86901 ==

== ENCOUNTER 2019-10-13 08:05 | Observation (INO) | payer OTHER ==
[2019-10-06 18:00] VITALS: BMI 50.2
[~2019-10-13 08:05] MED LIST: ACETAMINOPHEN TAB 500 MG TAB PO ONE; DEXAMETHASONE SOD PHOSPHATE 10 MG/ML 1 ML VIAL IV ONE; GABAPENTIN 300 MG CAP PO ONE; HYDROmorphone 0.5 MG/0.5 ML SYRINGE IVP PRN; MELOXICAM 7.5 MG TAB PO ONE; MIDAZOLAM 2 MG/2 ML VIAL IV PRN; ONDANSETRON 4 MG/2 ML VIAL IVP ONE; SCOPOLAMINE 1.5MG/72HR PATCH TRANSDERM ONE; TRANEXAMIC ACID 1,000 MG in SODIUM CHLORIDE 0.9% 100 ML IVPB ONE; VANCOMYCIN 2,000 MG in SODIUM CHLORIDE 0.9% 500 ML 500 ML IVPB ONE
[2019-10-13] MEDS ORDERED: ONDANSETRON 4 MG/2 ML VIAL ONE (08:48)
[2019-10-13] MEDS ORDERED: ACETAMINOPHEN TAB 500 MG TAB ONE (08:48)
[2019-10-13] MEDS: LACTATED RINGERS 1,000 ML IV SCH (09:11)
[2019-10-13] MEDS ORDERED: HYDROmorphone 1 MG/ML 1 ML SYRINGE IVP PRN (09:40)
[2019-10-13] MEDS ORDERED: HYDROmorphone 0.5 MG/0.5 ML SYRINGE IVP PRN (09:40)
[2019-10-13] MEDS ORDERED: NALOXONE 0.4 MG/ML 1 ML VIAL IV PRN (09:40)
[2019-10-13] MEDS ORDERED: diazePAM 5 MG TAB PO PRN (09:40)
[2019-10-13] MEDS ORDERED: hydrOXYzine pamoate 25 MG CAP PO PRN (09:40)
[2019-10-13] MEDS ORDERED: MAGNESIUM HYDROXIDE 2,400 MG/10 ML CUP PO PRN (09:40)
[2019-10-13] MEDS ORDERED: ONDANSETRON 4 MG/2 ML VIAL IVP PRN (09:40)
[2019-10-13] MEDS ORDERED: oxyCODONE-APAP 7.5-325MG 1 EACH TAB PO PRN (09:42)
[2019-10-13] MEDS ORDERED: TRANEXAMIC ACID 1,000 MG/10 ML VIAL ONE (09:56)
[2019-10-13] MEDS ORDERED: PHENYLEPHRINE-0.9% NACL SYG 1 MG/10 ML SYRINGE ONE (09:56)
[2019-10-13] MEDS ORDERED: LIDOCAINE 1% INJ 10MG/ML (20 ML MDV) ONE (09:56)
[2019-10-13] MEDS ORDERED: ePHEDrine SULFATE/0.9% NACL/PF 50 MG/5 ML SYRINGE IV ONE (09:56)
[2019-10-13] MEDS ORDERED: MIDAZOLAM 2 MG/2 ML VIAL ONE (09:56)
[2019-10-13] MEDS ORDERED: HEPARIN SODIUM,PORCINE 10,000 UNIT/ML 1 ML VIAL ONE (09:56)
[2019-10-13] MEDS ORDERED: SODIUM CHLORIDE 0.9% 100 ML BAG ONE (09:56)
[2019-10-13] MEDS ORDERED: PROPOFOL 10 MG/ML 20 ML VIAL IV ONE (09:56)
[2019-10-13] MEDS ORDERED: SODIUM CHLORIDE 0.9% IRRIG 1,000 ML BTL IRRIGATION ONE (09:56)
[2019-10-13] MEDS ORDERED: fentaNYL (PF) 50 MCG/ML 2 ML AMP ONE (09:56)
[2019-10-13] MEDS: ROPIVACAINE 246.25 MG, EPINEPHrine 0.5 MG, KETOROLAC 30 MG, cloNIDine HCL/PF 80 MCG, WA... MISCELLANE ONE ×10 (10:00→11:27)
[2019-10-13] MEDS ORDERED: ceFAZolin 3,000 MG in SODIUM CHLORIDE 0.9% IRRIGATIO 3,000 ML IRRIGATION ONE (10:35)
--- NOTE | 2019-10-13 11:51 | P.OP ---
Date of Procedure: 10/13/19 Preoperative Diagnosis: Severe osteoarthritis right hip Postoperative Diagnosis: Severe osteoarthritis right hip Procedure(s) Performed: Right total hip arthroplasty with a direct anterior approach Implants: Álvarez and nephew Polarstem size 2 standard Álvarez [employer] Nephew R3, 3 hole acetabular shell, 48 mm [employer]varez [employer] Nephew reflection 6.5 mm cancellus screw, 20 mm 2 [employer]varez [employer]hew R3, XLPE 20 acetabular liner [employer]lvarez [employer] Nephew Oxinium femoral head 32 m, +0 All components were press-fit. The articulation is Oxinium on polyethylene. Anesthesia: spinal Surgeon: Fei Pryor Analyst [employer] Prospecting #1: Kim Kenny Estimated Blood Loss (ml): 150 (60 mL returned with Cell Saver) Pathology: other (Femoral head) Condition: stable Disposition: PACU Indications for Procedure: After failure of conservative treatment we discussed the surgical and nonsurgical treatment options at length. Patient wishes to proceed with a total hip arthroplasty with a direct anterior approach. Complications specific to this procedure were discussed at length, including but not limited to infection, leg length discrepancy, dislocation, and nerve injury. Covid-19 was also discussed at length with the patient, and they are aware of the current policies and procedures. The patient was given the option of delaying surgery, but they elect to proceed knowing these risks. Patient is aware of all these complications and informed consent was obtained Operative Findings: The operative findings are consistent with severe osteoarthritis of the right hip Description of Procedure: Patient was seen and evaluated in the preoperative area, consent was reviewed, and the surgical site was marked with a skin marker. Patient was then brought to the operating room and given prophylactic antibiotics intravenously. 1 g of Tranexamic acid was also given. A spinal anesthetic was administered by the anesthesia department. The patient was then placed on the [place] table with the bony prominences well-padded. The hip area was then prepped and draped in usual sterile fashion. A universal timeout was then performed, which confirmed the patient's name, surgical site, ALLERGIES, and procedure being performed. Next the incision site was located at 1 cm distal and 1 cm lateral to the anterior superior iliac spine. The skin and subcutaneous tissues were sharply incised. Incision was carefully dissected down to the fascia overlying the tensor fascia bandar muscle. This fascia was then incised in line with the incision. Next, using blunt finger dissection, the tensor fascia bandar muscle was dissected off its investing fascia. The muscle was then carefully retracted laterally with a cobra retractor over the lateral neck of the femur. Next, the circumflex vessels were identified and cauterized using the AquaMantis device. The anterior hip capsule was then exposed. The capsule was then opened and an inverted T fashion. Cobra retractors were then placed intracapsularly. The proximal femur was then visualized. The femoral neck was then osteotomized appropriate level above the lesser trochanter. Small amount of traction was placed with the [place] table. A small wedge of bone was then removed from the remaining femoral head. Next, using a corkscrew femoral head was easily removed from the acetabulum. On gross visual inspection, the femoral head had complete loss of articular cartilage in multiple periarticular osteophytes. Attention was then turned to the acetabulum. the acetabulum was exposed and any remaining labrum was excised. Sequential reaming of the acetabulum was performed using fluoroscopic guidance. When the appropriate size was reached, a trial was then placed. The position and fit of the trial was checked with fluoroscopy. The trial was then removed. Then, using fluoroscopic guidance, the final implant was impacted at 20 of anteversion and 40 of abduction, and fully seated in the acetabulum. 2 screws were then placed in the acetabulum. Again fluoroscopy was used to check position of the screws. Next, the liner was then impacted, with a 20 elevated liner located in the anterior superior quadrant. Component locking was confirmed. Attention was then directed to the femur. With the aid of the [place] table, the femur was externally rotated to approximately 130, extended, and abducted under the opposite leg. A side hook was then placed under the proximal femur, and the side hook elevator was used to elevate the proximal femur. Retractors were then placed. A capsular release was performed, as well as a release of the conjoined tendon, which afforded excellent visualization of the proximal femur. Next, a box osteotome was used to lateralize the proximal femur. A warp hand was then used to locate the femoral canal. Sequential broaching was then performed with appropriate size which afforded excellent fixation in the proximal femur. A trial was then placed with appropriate head and neck, and the hip was gently reduced with the aid of the [place] table. Fluoroscopy was then used to check position of the components, as well as to ensure equal leg lengths. The hip was then gently dislocated and the trials were then removed. Final implants were then impacted and the hip was again reduced. Final fluoroscopic x-rays confirmed that the components were in anatomic position, as well as equal leg lengths. The hip was also taken through range of motion, and found to be stable. The hip was then copiously irrigated with antibiotic solution with pulsatile lavage. The hip was then irrigated with Irrisept solution. The soft tissues were then injected with a ropivacaine solution, which consisted of 246.25 mg of ropivacaine, 0.5 mg of epinephrine, 30 mg of Toradol, 80 g of clonidine, and 48.45 mL of sterile water, for a total of 100 mL of fluid injected. A second dose of 1 g of Tranexamic acid was also given. the fascia was then closed with 2-0 strata fix suture. The subcutaneous tissue was closed with 3-0 Vicryl. The subcuticular tissue was closed with 3-0 strata fix suture. The skin was then closed with Dermabond glue and a sterile silver dressing. The patient was then transferred to the recovery room in stable condition. The psychiatric assistant DORCAS Martinez was required due to the complexity of surgery, and the need for skilled operating room surgical technologist for positioning, draping, exposure, retraction, and closure of the wound.
--- NOTE | 2019-10-13 12:21 | XR ---
Fluoroscopy INDICATION: Pain FINDINGS: Fluoroscopy time: 56 seconds. Images obtained: 3. IMPRESSIONS: 1. Documentation of fluoroscopy.
--- NOTE | 2019-10-13 12:37 | XR ---
EXAMINATION TYPE: XR Hip Limited RT DATE OF EXAM: 10/13/2019 CLINICAL HISTORY: Right hip pain and osteoarthritis. TECHNIQUE: Single AP portable view of right hip is obtained immediately postoperatively. COMPARISON: None. FINDINGS: Metallic hardware from right hip arthroplasty is seen and appears satisfactory in alignment and position. There is osseous fragment in the region of the superior acetabulum. There is evidence of recent surgery with subcutaneous gas noted laterally. IMPRESSION: 1. Metallic hardware from right hip arthroplasty is satisfactory in position. 2. Osseous fragment in the region of the superior acetabulum.
[2019-10-13] MEDS: SODIUM CHLORIDE 0.9% 1,000 ML IV SCH (15:18)
[2019-10-13] MEDS: HYDROmorphone 0.5 MG/0.5 ML SYRINGE IVP PRN ×2 (18:07→21:36)
[2019-10-13] MEDS ORDERED: NITROGLYCERIN SL TABS 0.4 MG TAB SUBLINGUAL PRN (19:17)
[2019-10-13] MEDS ORDERED: FUROSEMIDE 40 MG TAB PO PRN (19:17)
[2019-10-13] MEDS ORDERED: POTASSIUM CHLORIDE ER 20 MEQ TAB.ER PO PRN (19:17)
[2019-10-13] MEDS ORDERED: VANCOMYCIN 2,000 MG in SODIUM CHLORIDE 0.9% 500 ML 500 ML IVPB ONE (21:00)
[2019-10-13] MEDS ORDERED: SENNOSIDES-DOCUSATE SODIUM 1 EACH TAB PO SCH (21:00)
[2019-10-13] MEDS ORDERED: ATORVASTATIN 40 MG TAB PO SCH (21:00)
[2019-10-13] MEDS ORDERED: LOSARTAN 50 MG TAB PO SCH (21:00)
[2019-10-13] MEDS: IPRATROPIUM-ALBUTEROL 3 ML NEB INHALATION SCH (21:24)
[2019-10-13] MEDS: ASPIRIN 81 MG PO SCH (21:28)
--- NOTE | 2019-10-13 22:50 | P.CONS ---
History of Present Illness - Reason for Consult Consult date: 10/13/19 Medical management Requesting physician: Fei Pryor - Chief Complaint Right total hip arthroplasty, CAD, COPD, hypertension and hyperlipidemia - History of Present Illness 54 year-old morbidly obese female one of Dr. Valencia's patient with past medical history of CAD post OH, history of hypertension, hyperlipidemia who had sever from severe arthritis of the right hip with avascular necrosis with severe decreased mobility with worsening pain and discomfort and significant limping not been able to ambulate and walk. Was seen orthopedic with failure to conservative management patient continued to progress very rapid ended up seen Dr. Pryor her x-ray showed severe degenerative arthritis of the right hip was recommended to go for total hip arthroplasty. Surgery was done today successfully with no major complication patient was admitted to the floor her home medication were started patient has been on nicotine patch will be be continue for now also known to have history CAD with no anginal or chest pain. Pain is well controlled with current management and patient has moved slightly today after surgery. Review of Systems CONSTITUTIONAL: Well-developed no acute respiratory distress. Morbid obesity. EYES: No icterus sclerae, no conjunctivitis. EARS, NOSE, MOUTH, THROAT, and FACE: No sore throat, lymphadenopathy, carotid br uits or deformity. RESPIRATORY: Decreased breath some bilaterally with mild rhonchi positive mild shortness of breath with exertion.. CARDIOVASCULAR: History of CAD post OH with no angina lately. GASTROINTESTINAL: No Abd pain, Nausea or vomiting, no Diarrhea or constipation, No GI Bleed, no distention or masses. GENITOURINARY: Negative for Hematuria or UTI, no kidney stones. INTEGUMENT/BREAST: Negative for any muscular injury with mild osteoarthritis.. HEMATOLOGIC/LYMPHATIC: Negative for bleed or purpura. MUSCULOSKELTAL: Significant muscle and joint pain. NEURLOGICAL: No LOC, Sz or syncope, blurred vision dizziness or abnormality.. BEHAVIORAL/PSYCH: Negative. ENDOCRINE: Negative. Past Medical History Past Medical History: Asthma, COPD, GERD/Reflux, Hyperlipidemia, Hypertension, Myocardial Infarction (OH), Osteoarthritis (OA) Additional Past Medical History / Comment(s): MIGRAINES. VARICOSE VEINS. DANISHA. CARPAL TUNNEL. GENITAL WARTS, finishing antibiotics for UTI, urinary incontinence, avascular necrosis right hip Last Myocardial Infarction Date:: Mar 2019 History of Any Multi-Drug Resistant Organisms: MRSA Year Discovered:: 07/2018 MDRO Source:: left leg Past Surgical History: Bladder Surgery, Heart Catheterization Additional Past Surgical History / Comment(s): [facility] 01/30/12. Past Anesthesia/Blood Transfusion Reactions: No Reported Reaction Past Psychological History: No Psychological Hx Reported Smoking Status: Current every day smoker Past Alcohol Use History: None Reported Additional Past Alcohol Use History / Comment(s): The patient is a smoker since she was 13 years of age smoking 1 1/2ppd, then down to 1/2ppd, recently cut back to 5 cigs/day, recently quit for a week, has smoked a couple since then Past Drug Use History: None Reported - Past Family History Father Family Medical History: Cancer Additional Family Medical History / Comment(s): Father is . Patient had no contact with her father. Mother Family Medical History: Diabetes Mellitus Additional Family Medical History / Comment(s): Mother is alive at age 72 with history of COPD, diabetes, chronic kidney disease. No known coronary artery disease. Brother(s) Additional Family Medical History / Comment(s): Patient has 1 brother with no major medical problems. Patient's 1 sister with ADD. Patient has 1 son with ADD and one daughter with asthma. Medications and Allergies Home Medications Medication Instructions Recorded Confirmed Type Ipratropium/Albuterol Sulfate 1 puff INHALATION RT-QID 04/01/19 10/13/19 History [Combivent Respimat Inhaler] Potassium Chloride ER [K-Dur 20] 20 meq PO DAILY PRN 04/01/19 10/13/19 History Aspirin 81 mg PO DAILY chew 04/03/19 10/13/19 Rx Atorvastatin [Lipitor] 40 mg PO HS #30 tab 04/03/19 10/13/19 Rx Losartan [Cozaar] 50 mg PO DAILY@2100 #30 tab 04/03/19 10/13/19 Rx Metoprolol Tartrate [Lopressor] 25 mg PO BID #60 tab 04/03/19 10/13/19 Rx Nicotine 14Mg/24Hr Patch [Habitrol] 1 patch TRANSDERM DAILY #30 patch 04/03/19 10/13/19 Rx Nitroglycerin Sl Tabs [Nitrostat] 0.4 mg SUBLINGUAL Q5M PRN #25 tab 04/03/19 10/13/19 Rx Pantoprazole [Protonix] 40 mg PO DAILY #14 tablet. 04/03/19 10/13/19 Rx Furosemide [Lasix] 40 mg PO DAILY PRN 10/06/19 10/13/19 History Levofloxacin [Levaquin] 500 mg PO DAILY 10/06/19 10/13/19 History Mupirocin 2% Oint [Bactroban 2% 1 applic NASAL DAILY 10/06/19 10/13/19 History Oint] oxyCODONE-APAP 7.5-325MG [Percocet 1 tab PO Q6HR 10/06/19 10/13/19 History 7.5-325 mg] Clopidogrel [Plavix] 75 mg PO DAILY 10/08/19 10/13/19 History Allergies Allergy/AdvReac Type Severity Reaction Status Date / Time sulfamethoxazole Allergy BURNING ON Verified 10/13/19 08:42 [From Bactrim] LIPS trimethoprim [From Bactrim] Allergy BURNING ON Verified 10/13/19 08:42 LIPS Physical Exam Vitals: Vital Signs Temp Pulse Pulse Resp BP Pulse Ox 10/13/19 15:26 20 10/13/19 15:00 97.6 F 84 20 113/69 94 L 10/13/19 14:03 80 16 95/68 95 10/13/19 13:36 76 16 114/67 94 L 10/13/19 13:17 70 16 121/67 95 10/13/19 13:02 74 16 118/63 98 10/13/19 12:47 69 16 120/59 98 10/13/19 12:32 73 16 133/58 95 10/13/19 12:15 71 16 94/53 98 10/13/19 12:08 96.9 F L 78 16 108/58 96 10/13/19 08:45 98.2 F 10/13/19 08:36 75 109/55 94 L Intake and Output 10/13/19 10/13/19 10/13/19 06:59 14:59 22:59 Intake Total 1151 Output Total 150 Balance 1001 Intake: IV 1151 Output: Estimated Blood Loss 150 Other: Weight 140 kg General Appearance: Alert, cooperative, no distress, appears stated age. Morbidly obese. Neck HEENT: Supple, no lymphadenopathy, no thyroid enlargement, no carotid bruits. Lungs: Decrease breath some bilateral rhonchi positive mild expiratory wheezes. Chest Wall: Decrease expansion with deep inspiration no tenderness and no deformity was found on exam, no costochondral pain or discomfort. Heart: Regular rate and rhythm, S1, S2 normal, no murmur, rub or gallop. Back: Symmetric, no curvature, ROM normal, no CVA tenderness. Abdomen: Soft, non-tender, bowel sounds active all four quadrants, no masses, no organomegaly. Extremities: Anterior approach incision of the right hip area with surgical site looks very clean with no sign of infection induration no hematoma. Trace edema. Pulses: 2+ and symmetric. Skin: Skin color, texture, tugor normal, no rashes or lesions. Neurologic: Alert oriented x3 cranial nerves II through XII intact, no motor deficit, no abnormal balance or gait. Assessment and Plan Plan: 1 post right total hip arthroplasty: Stable so far resume home meds, continue nicotine patch, continue patient on inhaler and home meds. 2 CAD post OH patient has been doing well on secondary prevention still seeing cardiology continue losartan, Lopressor, Plavix and atorvastatin. Patient Plavix will be held until tomorrow the resident medication can be resumed today. 3 COPD: Continue patient on Combivent along with Pulmicort. 4 hypertension: Continue patient on losartan 50 mg a day, and metoprolol 25 g twice a day. 5 hyperlipidemia: Continue patient atorvastatin 40 mg daily. 6 mild arrhythmia: Remain on beta yeyo doing well with no symptoms so far. 7 chronic nicotine dependency: Has been on nicotine patch continue 14 mg daily. 8 severe GERD: Continue patient on pantoprazole 40 mg daily. 9 possible obstructive sleep apnea: Patient apparently has not been using any CPAP has not been tested so far. 10 recurrent UTI: Last antibiotic was done before surgery repeat UA tomorrow if any abnormality was start patient on antibiotics again. 11 DVT prophylaxis: Patient be on aspirin and Plavix early mobilization be done. 12 chronic pain management: Has been on oxycodone. CODE STATUS: Full code. Dr. Pryor thank you much for the consult if I can be any further help to please let me know.
[2019-10-14] MEDS: oxyCODONE-APAP 7.5-325MG 1 EACH TAB PO SCH ×3 (00:03→12:18)
[2019-10-14] MEDS: METOPROLOL TARTRATE 25 MG TAB PO SCH ×2 (00:07→09:29)
[2019-10-14] MEDS: IPRATROPIUM-ALBUTEROL 3 ML NEB INHALATION SCH ×3 (01:03→11:53)
[2019-10-14] MEDS: SODIUM CHLORIDE 0.9% 1,000 ML IV SCH (02:13)
[2019-10-14] MEDS: LACTATED RINGERS 1,000 ML IV SCH (06:53)
[2019-10-14 07:27] VITALS: BP 107/65; PULSE 94; RESP 18; TEMP 98.4
[2019-10-14] MEDS ORDERED: PANTOPRAZOLE 40 MG TABLET PO SCH (07:30)
[2019-10-14 08:03] LABS: Basophils % (A) 0 %; Eosinophils # (A) 0.2 k/uL (0-0.7); Eosinophils % (A) 1 %; HCT 44.1 % (34.0-46.0); HGB 13.2 gm/dL (11.4-16.0); Hypochromasia Marked; Lymphocytes % (A) 5 %; MCH 28.7 pg (25.0-35.0); MCV 95.6 fL (80.0-100.0); Mean Platelet Volume 7.4; Monocytes # (A) 0.9 k/uL (0-1.0); Monocytes % (A) 5 %; Neutrophils # (A) 17.1 k/uL (1.3-7.7); Neutrophils % (A) 89 %; Platelet Count 251 k/uL (150-450); RBC 4.61 m/uL (3.80-5.40); RDW 15.4 % (11.5-15.5); WBC 19.3 k/uL (3.8-10.6)
[2019-10-14] MEDS ORDERED: NICOTINE 14MG/24HR PATCH TRANSDERM SCH (09:00)
[2019-10-14] MEDS ORDERED: ASPIRIN 81 MG PO SCH (09:00)
[2019-10-14] MEDS ORDERED: CLOPIDOGREL 75 MG TAB PO SCH ×2 (09:00)
[2019-10-14] MEDS: ASPIRIN 81 MG PO SCH (09:29)
--- NOTE | 2019-10-14 10:34 | P.PN ---
Subjective Progress Note Date: 10/14/19 54 year-old morbidly obese female one of Dr. Valencia's patient with past medical history of CAD post MT, history of hypertension, hyperlipidemia who had sever from severe arthritis of the right hip with avascular necrosis with severe decreased mobility with worsening pain and discomfort and significant limping not been able to ambulate and walk. Was seen orthopedic with failure to conservative management patient continued to progress very rapid ended up seen Dr. Goreoff her x-ray showed severe degenerative arthritis of the right hip was recommended to go for total hip arthroplasty. Surgery was done today successfully with no major complication patient was admitted to the floor her home medication were started patient has been on nicotine patch will be be continue for now also known to have history CAD with no anginal or chest pain. Pain is well controlled with current management and patient has moved slightly today after surgery. 10/13: Patient was seen resting comfortably in bed this morning, had already been seen by surgery this morning. Plan for discharge home today if okay with surge ry. PT was evaluating patient will have a UA done to rule out UTI at this point. Patient may resume her Plavix at any time. Patient will follow-up with Dr. Valencia as outpatient. CONSTITUTIONAL: Well-developed no acute respiratory distress. Morbid obesity. EYES: No icterus sclerae, no conjunctivitis. EARS, NOSE, MOUTH, THROAT, and FACE: No sore throat, lymphadenopathy, carotid bruits or deformity. RESPIRATORY: Decreased breath some bilaterally. CARDIOVASCULAR: History of CAD post MT with no angina lately. GASTROINTESTINAL: No Abd pain, Nausea or vomiting, no Diarrhea or constipation, No GI Bleed, no distention or masses. GENITOURINARY: Negative for Hematuria or UTI, no kidney stones. INTEGUMENT/BREAST: Negative for any muscular injury with mild osteoarthritis.. HEMATOLOGIC/LYMPHATIC: Negative for bleed or purpura. MUSCULOSKELTAL: Significant muscle and joint pain. Right hip pain NEURLOGICAL: No LOC, Sz or syncope, blurred vision dizziness or abnormality.. BEHAVIORAL/PSYCH: Negative. ENDOCRINE: Negative. General Appearance: Alert, cooperative, no distress, appears stated age. Morbidly obese. Neck HEENT: Supple, no lymphadenopathy, no thyroid enlargement, no carotid bruits. Lungs: Decrease breath some bilateral. Chest Wall: Decrease expansion with deep inspiration no tenderness and no deformity was found on exam, no costochondral pain or discomfort. Heart: Regular rate and rhythm, S1, S2 normal, no murmur, rub or gallop. Back: Symmetric, no curvature, ROM normal, no CVA tenderness. Abdomen: Soft, non-tender, bowel sounds active all four quadrants, no masses, no organomegaly. Extremities: Anterior approach incision of the right hip area with surgical site looks very clean with no sign of infection induration no hematoma. Trace edema. Pulses: 2+ and symmetric. Skin: Skin color, texture, tugor normal, no rashes or lesions. Neurologic: Alert oriented x3 cranial nerves II through XII intact, no motor deficit, no abnormal balance or gait. Assessment and Plan 1 post right total hip arthroplasty: 2 CAD post MT 3 COPD: 4 hypertension: 5 hyperlipidemia: 6 mild arrhythmia: 7 chronic nicotine dependency: H 8 severe GERD: 9 possible obstructive sleep apnea: 10 recurrent UTI: 11 DVT prophylaxis: 12 chronic pain management: Dr. Pryor thank you much for the consult if I can be any further help to please let me know. Discharge plan: Home Impression and plan of care have been directed as dictated by the signing physician. Saba Dominguez nurse practitioner acting as scribe for signing physician. Objective - Vital Signs Vital signs: Vital Signs Temp 98.4 F 10/14/19 07:00 Pulse 72 10/14/19 07:02 Resp 18 10/14/19 07:00 BP 107/65 10/14/19 07:00 Pulse Ox 93 L 10/14/19 07:00 Intake & Output 10/13/19 10/14/19 10/14/19 18:59 06:59 18:59 Intake Total 1151 Output Total 150 300 Balance 1001 -300 Weight 140 kg Intake: IV 1151 Output: Urine 300 Estimated Blood Loss 150 Other: Voiding Method Toilet Toilet Diaper Diaper # Voids 1 - Labs CBC & Chem 7: 10/14/19 07:31 Labs: Abnormal Lab Results - Last 24 Hours (Table) 10/14/19 Range/Units 07:31 WBC 19.3 H (3.8-10.6) k/uL MCHC 30.0 L (31.0-37.0) g/dL Neutrophils # 17.1 H (1.3-7.7) k/uL
[2019-10-14 11:10] LABS: Appearance,Urine Cloudy (Clear); Bacteria,Urine Few /hpf; Bilirubin,Urine Negative (Negative); Blood,Urine Negative (Negative); Color,Urine Yellow; Glucose,Urine (UA) Negative (Negative); Hyaline Casts,Urine 1 /lpf (0-2); Ketones,Urine Negative (Negative); Leukocyte Esterase,Urine Negative (Negative); Mucus,Urine Rare /hpf; Nitrite,Urine Negative (Negative); Protein,Urine Negative (Negative); Specific Gravity,Urine 1.015 (1.001-1.035); Squamous Epithelial Cell,Urine 3 /hpf (0-4); Urobilinogen,Urine <2.0 mg/dL (<2.0); WBC,Urine 1 /hpf (0-5)
--- NOTE | 2019-10-14 12:16 | P.DS ---
Providers Date of admission: 10/13/19 23:05 Expected date of discharge: 10/14/19 Attending physician: Fei Pryor Consults: 10/13/19 09:40 Consult Physician Routine Consulting Provider: Noemy Valencia Consult Reason/Comments: medical management and anticoagulation Do you want consulting provider notified?: Yes Primary care physician: Noemy Valencia - Discharge Diagnosis(es) (1) Osteoarthritis of right hip Current Visit: Yes Status: Acute (2) Status post total hip replacement, right Current Visit: Yes Status: Acute Hospital Course: This is a 54-year-old female with known history of degenerative arthritis of the right hip. The patient presents for evaluation. After discussion and consideration patient elects to proceed with total hip arthroplasty. The patient is seen preoperatively by Dr. Pryor and cleared for surgery. Patient is admitted to [facility] on 10/13/2019 for total hip arthroplasty. The procedures performed without complication or sequelae. The patient is doing well postoperatively. Labs and vital signs are stable on day of discharge. On day of discharge patient's hip incision is healing well. There is minimal erythema. There is no drainage noted at this time. There is minimal soft tissue swelling to the hip and thigh. Patient has full foot and ankle motion without difficulty or pain. Neurovascular status to the right lower extremity is intact. Patient has a pain contract with her family physician who will prescribe postop pain medication. Patient is discharged home in good condition. Please see med rec for accurate list of home medications. Plan - Discharge Summary Discharge Rx Participant: Yes New Discharge Prescriptions: New Aspirin 81 mg PO BID chew Magnesium Hydroxide [Milk of Magnesia Concentrate] 2,400 mg PO DAILY PRN ml PRN Reason: Constipation oxyCODONE-APAP 7.5-325MG [Percocet 7.5-325 mg] 1 each PO Q6HR PRN tab PRN Reason: Pain hydrOXYzine pamoate [Vistaril] 25 mg PO Q4HR PRN #30 cap PRN Reason: Nausea, Anxiety, Pain Control Continue Potassium Chloride ER [K-Dur 20] 20 meq PO DAILY PRN PRN Reason: with lasix only Ipratropium/Albuterol Sulfate [Combivent Respimat Inhaler] 1 puff INHALATION RT-QID Aspirin 81 mg PO DAILY chew Losartan [Cozaar] 50 mg PO DAILY@2100 #30 tab Nicotine 14Mg/24Hr Patch [Habitrol] 1 patch TRANSDERM DAILY #30 patch Atorvastatin [Lipitor] 40 mg PO HS #30 tab Metoprolol Tartrate [Lopressor] 25 mg PO BID #60 tab Nitroglycerin Sl Tabs [Nitrostat] 0.4 mg SUBLINGUAL Q5M PRN #25 tab PRN Reason: Chest Pain Pantoprazole [Protonix] 40 mg PO DAILY #14 tablet. oxyCODONE-APAP 7.5-325MG [Percocet 7.5-325 mg] 1 tab PO Q6HR Levofloxacin [Levaquin] 500 mg PO DAILY Furosemide [Lasix] 40 mg PO DAILY PRN PRN Reason: Edema Mupirocin 2% Oint [Bactroban 2% Oint] 1 applic NASAL DAILY Clopidogrel [Plavix] 75 mg PO DAILY Discharge Medication List Ipratropium/Albuterol Sulfate [Combivent Respimat Inhaler] 1 puff INHALATION RT- QID 04/01/19 [History] Potassium Chloride ER [K-Dur 20] 20 meq PO DAILY PRN 04/01/19 [History] Aspirin 81 mg PO DAILY chew 04/03/19 [Rx] Atorvastatin [Lipitor] 40 mg PO HS #30 tab 04/03/19 [Rx] Losartan [Cozaar] 50 mg PO DAILY@2100 #30 tab 04/03/19 [Rx] Metoprolol Tartrate [Lopressor] 25 mg PO BID #60 tab 04/03/19 [Rx] Nicotine 14Mg/24Hr Patch [Habitrol] 1 patch TRANSDERM DAILY #30 patch 04/03/19 [Rx] Nitroglycerin Sl Tabs [Nitrostat] 0.4 mg SUBLINGUAL Q5M PRN #25 tab 04/03/19 [Rx] Pantoprazole [Protonix] 40 mg PO DAILY #14 tablet. 04/03/19 [Rx] Furosemide [Lasix] 40 mg PO DAILY PRN 10/06/19 [History] Levofloxacin [Levaquin] 500 mg PO DAILY 10/06/19 [History] Mupirocin 2% Oint [Bactroban 2% Oint] 1 applic NASAL DAILY 10/06/19 [History] oxyCODONE-APAP 7.5-325MG [Percocet 7.5-325 mg] 1 tab PO Q6HR 10/06/19 [History] Clopidogrel [Plavix] 75 mg PO DAILY 10/08/19 [History] Aspirin 81 mg PO BID chew 10/14/19 [Rx] Magnesium Hydroxide [Milk of Magnesia Concentrate] 2,400 mg PO DAILY PRN ml 10/14/19 [Rx] hydrOXYzine pamoate [Vistaril] 25 mg PO Q4HR PRN #30 cap 10/14/19 [Rx] oxyCODONE-APAP 7.5-325MG [Percocet 7.5-325 mg] 1 each PO Q6HR PRN tab 10/14/19 [Rx] Follow up Appointment(s)/Referral(s): Noemy Valencia MD [Primary Care Provider] - 10/21/19 11:30 am [facility], [NON-STAFF] - (Expect a phone call by tomorrow afternoon. Your first visit should be withing 24 hours of discharge. ) Fei Pryor DO [Doctor of Osteopathic Medicine] - 10/29/19 1:30 pm (With Kim) Patient Instructions/Handouts: How to Choose and Use a Walker (GEN), Anterior Hip Replacement (DC) Activity/Diet/Wound Care/Special Instructions: Weight bear as tolerated with walker. Remove dressing in 10 days. May shower with dressing intact. Wear compression stockings until follow up Take pain medications as prescribed. Ice incision as needed. Resume Plavix 75mg daily and Aspirin 81mg twice daily for DVT prophylaxis. Report any problems or concerns to [facility] at [phone] Discharge Disposition: HOME WITH HOME HEALTH SERVICES
== END 2019-10-14 12:49 | disposition home health service (06) ==
LOC: OR 08:05 → 4SSUR 12:02 → OR 23:05 → 4SSUR 10-14 00:52
PROVIDERS: ADMIT Orthopaedic Surgery; ATTEND Orthopaedic Surgery
DX: M16.11 Unilateral primary osteoarthritis, right hip (principal); M25.751 Osteophyte, right hip; M87.9 Osteonecrosis, unspecified; J44.9 Chronic obstructive pulmonary disease, unspecified; I25.10 Atherosclerotic heart disease of native coronary artery without angina pectoris; I10 Essential (primary) hypertension; E78.5 Hyperlipidemia, unspecified; G43.909 Migraine, unspecified, not intractable, without status migrainosus; F17.210 Nicotine dependence, cigarettes, uncomplicated; K21.9 Gastro-esophageal reflux disease without esophagitis; G89.29 Other chronic pain; I49.9 Cardiac arrhythmia, unspecified; R32 Unspecified urinary incontinence; I83.90 Asymptomatic varicose veins of unspecified lower extremity; E11.8 Type 2 diabetes mellitus with unspecified complications; G56.03 Carpal tunnel syndrome, bilateral upper limbs; E66.01 Morbid (severe) obesity due to excess calories; Z68.43 Body mass index [BMI] 50.0-59.9, adult; R26.81 Unsteadiness on feet; Z79.82 Long term (current) use of aspirin; Z79.02 Long term (current) use of antithrombotics/antiplatelets; Z79.891 Long term (current) use of opiate analgesic; Z79.899 Other long term (current) drug therapy; Z88.1 Allergy status to other antibiotic agents; Z88.2 Allergy status to sulfonamides; I25.2 Old myocardial infarction; Z86.14 Personal history of Methicillin resistant Staphylococcus aureus infection; Z86.19 Personal history of other infectious and parasitic diseases; Z97.3 Presence of spectacles and contact lenses; Z87.440 Personal history of urinary (tract) infections; Z83.3 Family history of diabetes mellitus; Z82.49 Family history of ischemic heart disease and other diseases of the circulatory system; Z84.1 Family history of disorders of kidney and ureter; Z82.5 Family history of asthma and other chronic lower respiratory diseases; Z80.9 Family history of malignant neoplasm, unspecified
CPT/HCPCS: 27130; 94640 ×2; 97162; 97535; 97165; 86891; 85025; 81001; 84703; 88300; 87086; 73501; G0378 ×2; P9022; C1776; S4990; J2250; J0171; J3370; J1644; J1100; J2405; J0690; J2001; J3010; J1885; J2795; J2370; J2704; J0735; J1170; 36415; 86850; 86900; 86901

== ENCOUNTER 2019-12-31 13:36 | Inpatient (IN) | payer OTHER ==
[2019-12-31] MEDS ORDERED: VANCOMYCIN IV PER PHARMACY 1 EACH MISC MISCELLANE PRN (15:23)
[2019-12-31] MEDS ORDERED: VANCOMYCIN 2,000 MG in SODIUM CHLORIDE 0.9% 500 ML 500 ML IVPB STA (15:27)
[2019-12-31] MEDS ORDERED: oxyCODONE-APAP 7.5-325MG 1 EACH TAB PO STA (15:57)
[2019-12-31] MEDS ORDERED: NALOXONE 0.4 MG/ML 1 ML VIAL IV PRN (16:30)
--- NOTE | 2019-12-31 16:30 | ED ---
Wound/Laceration HPI - General Chief Complaint: Wound/Laceration Stated Complaint: abscess on leg-sent by PCP Source: patient, family Mode of arrival: wheelchair - History of Present Illness Initial Comments: Patient is a 54-year-old female past history of right hip replacement in October 10 presents to the emergency department with drainage from her right surgical incision. Patient states that since her surgery she has had issues with delayed wound closure. States that there is a small area in which the not close. She has had significant serosanguineous drainage from the site. She has been on mu ltiple courses of antibiotics. Saw Dr. Valencia in office. CT was performed on the of the area which demonstrated that there is a moderate sized focal fluid collections suspected as an abscess. Dr. Valencia also cultured the area which was positive for Staphylococcus epidermidis, Enterococcus faecalis, and corynebacterium. She called the patient and chart that she come into the emergency room for IV antibiotics and PICC line. She denies any fevers or chills. No nausea or vomiting. Admits to right lateral hip pain and some swelling to her right lower extremity. No other alleviating, Perceptin or modifying factors - Related Data Home Medications Medication Instructions Recorded Confirmed Ipratropium/Albuterol Sulfate 1 puff INHALATION RT-QID 04/01/19 10/13/19 [Combivent Respimat Inhaler] Potassium Chloride ER [K-Dur 20] 20 meq PO DAILY PRN 04/01/19 10/13/19 Furosemide [Lasix] 40 mg PO DAILY PRN 10/06/19 10/13/19 Levofloxacin [Levaquin] 500 mg PO DAILY 10/06/19 10/13/19 Mupirocin 2% Oint [Bactroban 2% 1 applic NASAL DAILY 10/06/19 10/13/19 Oint] oxyCODONE-APAP 7.5-325MG [Percocet 1 tab PO Q6HR 10/06/19 10/13/19 7.5-325 mg] Clopidogrel [Plavix] 75 mg PO DAILY 10/08/19 10/13/19 Previous Rx's Medication Instructions Recorded Aspirin 81 mg PO DAILY chew 04/03/19 Atorvastatin [Lipitor] 40 mg PO HS #30 tab 04/03/19 Losartan [Cozaar] 50 mg PO DAILY@2100 #30 tab 04/03/19 Metoprolol Tartrate [Lopressor] 25 mg PO BID #60 tab 04/03/19 Nicotine 14Mg/24Hr Patch [Habitrol] 1 patch TRANSDERM DAILY #30 patch 04/03/19 Nitroglycerin Sl Tabs [Nitrostat] 0.4 mg SUBLINGUAL Q5M PRN #25 tab 04/03/19 Pantoprazole [Protonix] 40 mg PO DAILY #14 tablet. 04/03/19 Aspirin 81 mg PO BID chew 10/14/19 Magnesium Hydroxide [Milk of 2,400 mg PO DAILY PRN ml 10/14/19 Magnesia Concentrate] hydrOXYzine pamoate [Vistaril] 25 mg PO Q4HR PRN #30 cap 10/14/19 oxyCODONE-APAP 7.5-325MG [Percocet 1 each PO Q6HR PRN tab 10/14/19 7.5-325 mg] Allergies Allergy/AdvReac Type Severity Reaction Status Date / Time sulfamethoxazole Allergy BURNING ON Verified 12/31/19 13:42 [From Bactrim] LIPS trimethoprim [From Bactrim] Allergy BURNING ON Verified 12/31/19 13:42 LIPS Review of Systems ROS Statement: Those systems with pertinent positive or pertinent negative responses have been documented in the HPI. ROS Other: All systems not noted in ROS Statement are negative. Past Medical History Past Medical History: Asthma, COPD, GERD/Reflux, Hyperlipidemia, Hypertension, Myocardial Infarction ([place]), Osteoarthritis (OA) Additional Past Medical History / Comment(s): MIGRAINES. VARICOSE VEINS. DANISHA. CARPAL TUNNEL. GENITAL WARTS, finishing antibiotics for UTI, urinary incontinence, avascular necrosis right hip Last Myocardial Infarction Date:: Mar 2019 History of Any Multi-Drug Resistant Organisms: MRSA Date of last positivie culture/infection: 07/2018 MDRO Source:: left leg Past Surgical History: Bladder Surgery, Heart Catheterization Additional Past Surgical History / Comment(s): [facility] 01/30/12, hip replacement. Past Anesthesia/Blood Transfusion Reactions: No Reported Reaction Past Psychological History: No Psychological Hx Reported Smoking Status: Current every day smoker Past Alcohol Use History: None Reported Past Drug Use History: None Reported - Past Family History Father Family Medical History: Cancer Additional Family Medical History / Comment(s): Father is . Patient had no contact with her father. Mother Family Medical History: Diabetes Mellitus Additional Family Medical History / Comment(s): Mother is alive at age 72 with history of COPD, diabetes, chronic kidney disease. No known coronary artery disease. Brother(s) Additional Family Medical History / Comment(s): Patient has 1 brother with no major medical problems. Patient's 1 sister with ADD. Patient has 1 son with ADD and one daughter with asthma. Course Vital Signs 12/31/19 13:40 Temperature 97.6 F Pulse Rate 89 Respiratory 20 Rate Blood Pressure 108/65 O2 Sat by Pulse 95 Oximetry Medical Decision Making - Medical Decision Making Upon arrival the patient is placed into room 11. A thorough history and physical exam was performed. Patient was given a Percocet for pain control which she does take at home. Laboratory studies were conducted. Labs results in a straight a white count of 15.9. Potassium 3.2. Creatinine 1.3. Lactic a rajni is 2.4. CRP 36.5. Patient was started on Vanco as her cultures do show that this is sensitive. After Annie does request that nephrology be placed on consult. Patient remained in stable condition awaiting a bed on the floor - Lab Data Result diagrams: 12/31/19 15:40 12/31/19 15:40 Lab Results 12/31/19 12/31/19 12/31/19 Range/Units 15:40 15:40 15:40 WBC 15.9 H (3.8-10.6) k/uL RBC 5.02 (3.80-5.40) m/uL Hgb 14.5 (11.4-16.0) gm/dL Hct 46.1 H (34.0-46.0) % MCV 91.7 (80.0-100.0) fL MCH 28.9 (25.0-35.0) pg MCHC 31.5 (31.0-37.0) g/dL RDW 14.9 (11.5-15.5) % Plt Count 327 (150-450) k/uL Neutrophils % 78 % Lymphocytes % 13 % Monocytes % 4 % Eosinophils % 4 % Basophils % 1 % Neutrophils # 12.4 H (1.3-7.7) k/uL Lymphocytes # 2.0 (1.0-4.8) k/uL Monocytes # 0.7 (0-1.0) k/uL Eosinophils # 0.6 (0-0.7) k/uL Basophils # 0.2 (0-0.2) k/uL Hypochromasia Slight PT 10.4 (9.0-12.0) sec INR 1.0 (<1.2) APTT 23.1 (22.0-30.0) sec Sodium 136 L (137-145) mmol/L Potassium 3.2 L (3.5-5.1) mmol/L Chloride 96 L (98-107) mmol/L Carbon Dioxide 32 H (22-30) mmol/L Anion Gap 8 mmol/L BUN 45 H (7-17) mg/dL Creatinine 1.32 H (0.52-1.04) mg/dL Est GFR (CKD-EPI)AfAm 54 (>60 ml/min/1.73 sqM) Est GFR (CKD-EPI)NonAf 47 (>60 ml/min/1.73 sqM) Glucose 111 H (74-99) mg/dL Plasma Lactic Acid Byron (0.7-2.0) mmol/L Calcium 9.4 (8.4-10.2) mg/dL Total Bilirubin 0.4 (0.2-1.3) mg/dL AST 27 (14-36) U/L ALT 19 (4-34) U/L Alkaline Phosphatase 169 H (38-126) U/L C-Reactive Protein 36.5 H (<10.0) mg/L Total Protein 7.4 (6.3-8.2) g/dL Albumin 3.9 (3.5-5.0) g/dL 12/31/19 Range/Units 15:40 WBC (3.8-10.6) k/uL RBC (3.80-5.40) m/uL Hgb (11.4-16.0) gm/dL Hct (34.0-46.0) % MCV (80.0-100.0) fL MCH (25.0-35.0) pg MCHC (31.0-37.0) g/dL RDW (11.5-15.5) % Plt Count (150-450) k/uL Neutrophils % % Lymphocytes % % Monocytes % % Eosinophils % % Basophils % % Neutrophils # (1.3-7.7) k/uL Lymphocytes # (1.0-4.8) k/uL Monocytes # (0-1.0) k/uL Eosinophils # (0-0.7) k/uL Basophils # (0-0.2) k/uL Hypochromasia PT (9.0-12.0) sec INR (<1.2) APTT (22.0-30.0) sec Sodium (137-145) mmol/L Potassium (3.5-5.1) mmol/L Chloride (98-107) mmol/L Carbon Dioxide (22-30) mmol/L Anion Gap mmol/L BUN (7-17) mg/dL Creatinine (0.52-1.04) mg/dL Est GFR (CKD-EPI)AfAm (>60 ml/min/1.73 sqM) Est GFR (CKD-EPI)NonAf (>60 ml/min/1.73 sqM) Glucose (74-99) mg/dL Plasma Lactic Acid Byron 2.4 H* (0.7-2.0) mmol/L Calcium (8.4-10.2) mg/dL Total Bilirubin (0.2-1.3) mg/dL AST (14-36) U/L ALT (4-34) U/L Alkaline Phosphatase (38-126) U/L C-Reactive Protein (<10.0) mg/L Total Protein (6.3-8.2) g/dL Albumin (3.5-5.0) g/dL Disposition Clinical Impression: Abscess, History of right hip replacement Disposition: ADMITTED IP TO THIS [facility] Condition: Stable Is patient prescribed a controlled substance at d/c from ED?: No Referrals: Noemy Valencia MD [Primary Care Provider] - 1-2 days Decision to Admit Reason: Admit from EC Decision Date: 12/31/19 Decision Time: 16:30
[2019-12-31 16:34] LABS: Basophils # (A) 0.2 k/uL (0-0.2); Basophils % (A) 1 %; Eosinophils # (A) 0.6 k/uL (0-0.7); Eosinophils % (A) 4 %; HCT 46.1 % (34.0-46.0); HGB 14.5 gm/dL (11.4-16.0); Hypochromasia Slight; Lymphocytes % (A) 13 %; MCH 28.9 pg (25.0-35.0); MCHC 31.5 g/dL (31.0-37.0); MCV 91.7 fL (80.0-100.0); Mean Platelet Volume 7.2; Monocytes # (A) 0.7 k/uL (0-1.0); Monocytes % (A) 4 %; Neutrophils # (A) 12.4 k/uL (1.3-7.7); Neutrophils % (A) 78 %; Platelet Count 327 k/uL (150-450); RBC 5.02 m/uL (3.80-5.40); RDW 14.9 % (11.5-15.5); WBC 15.9 k/uL (3.8-10.6)
[2019-12-31 16:44] LABS: Partial Thromboplastin Time 23.1 sec (22.0-30.0); Prothrombin Time 10.4 sec (9.0-12.0)
[2019-12-31 16:47] LABS: Albumin 3.9 g/dL (3.5-5.0); C Reactive Protein 36.5 mg/L (<10.0); Calcium 9.4 mg/dL (8.4-10.2); Potassium 3.2 mmol/L (3.5-5.1); Total Bilirubin 0.4 mg/dL (0.2-1.3); Total Protein 7.4 g/dL (6.3-8.2)
[2019-12-31] MEDS ORDERED: POTASSIUM CHLORIDE ER 20 MEQ TAB.ER PO STA (16:58)
[2019-12-31] MEDS ORDERED: POTASSIUM CHLORIDE 20 MEQ in WATER FOR INJECTION 1 100ML.BAG IVPB STA (17:04)
[2019-12-31 17:28] LABS: Erythrocyte Sedimentation Rate 29 mm/hr (0-20)
[2019-12-31] MEDS: SODIUM CHLORIDE 0.9% 1,000 ML IV SCH (18:06)
[2019-12-31] MEDS: POTASSIUM CHLORIDE ER 20 MEQ TAB.ER PO SCH (20:34)
[2019-12-31] MEDS: CLOPIDOGREL 75 MG TAB PO SCH (20:39)
[2019-12-31] MEDS: METOPROLOL TARTRATE 50 MG TAB PO SCH (20:46)
[2019-12-31] MEDS: ASPIRIN 81 MG PO SCH (20:47)
[2019-12-31] MEDS: TORSEMIDE 20 MG TAB PO SCH (20:47)
[2019-12-31] MEDS: metOLazone 2.5 MG TAB PO SCH (20:47)
--- NOTE | 2019-12-31 23:58 | P.HPIM ---
History of Present Illness H&P Date: 12/31/19 Chief Complaint: Sepsis, abscess on the right hip, hypertension hyperlipidemia 54-year-old male with past medical history of right hip replacement in October 10, history of hypertension hyperlipidemia who presented to demurs department after being contacted by her primary care physician with the complaint of worsening drainage from the surgical site for the hip surgery done in October 10 patient continued to have significant drainage culture as an outpatient came back positi ve for staph epi and enterococcus with culture susceptible to vancomycin. Patient also has been seen Dr. lan off we did her original hip surgery and recommended not to do any intervention to open the site for now. All agree to admit patient to the hospital IV antibiotics and see if it improved without having to go for resection of prostatic and antibiotic spacer. Also patient has been doing well slight increased edema of the lower extremity with worsening arthritis of both knees. Review of Systems CONSTITUTIONAL: Well-developed no acute respiratory distress. EYES: No icterus sclerae, no conjunctivitis. EARS, NOSE, MOUTH, THROAT, and FACE: No sore throat, lymphadenopathy, carotid bruits or deformity. RESPIRATORY: No SOB cough or wheezes. CARDIOVASCULAR: No CP, Palpitation, PND, Orthopnea, or angina. GASTROINTESTINAL: No Abd pain, Nausea or vomiting, no Diarrhea or constipation, No GI Bleed, no distention or masses. GENITOURINARY: Negative for Hematuria or UTI, no kidney stones. INTEGUMENT/BREAST: Negative for any muscular injury with mild osteoarthritis.. HEMATOLOGIC/LYMPHATIC: Negative for bleed or purpura. MUSCULOSKELTAL: Negative for Myalgia or arthralgia. NEURLOGICAL: No LOC, Sz or syncope, blurred vision dizziness or abnormality.. BEHAVIORAL/PSYCH: Negative. ENDOCRINE: Negative. Past Medical History Past Medical History: Asthma, COPD, GERD/Reflux, Hyperlipidemia, Hypertension, Myocardial Infarction ([place]), Osteoarthritis ([place]) Additional Past Medical History / Comment(s): MIGRAINES. VARICOSE VEINS. DANISHA. CARPAL TUNNEL. GENITAL WARTS, finishing antibiotics for UTI, urinary inc ontinence, avascular necrosis right hip Last Myocardial Infarction Date:: Mar 2019 History of Any Multi-Drug Resistant Organisms: MRSA Date of last positivie culture/infection: 07/2018 MDRO Source:: left leg Past Surgical History: Bladder Surgery, Heart Catheterization Additional Past Surgical History / Comment(s): [facility] 01/30/12, hip replacement. Past Anesthesia/Blood Transfusion Reactions: No Reported Reaction Past Psychological History: No Psychological Hx Reported Smoking Status: Current every day smoker Past Alcohol Use History: None Reported Past Drug Use History: None Reported - Past Family History Father Family Medical History: Cancer Additional Family Medical History / Comment(s): Father is . Patient had no contact with her father. Mother Family Medical History: Diabetes Mellitus Additional Family Medical History / Comment(s): Mother is alive at age 72 with history of COPD, diabetes, chronic kidney disease. No known coronary artery disease. Brother(s) Additional Family Medical History / Comment(s): Patient has 1 brother with no major medical problems. Patient's 1 sister with ADD. Patient has 1 son with ADD and one daughter with asthma. Medications and Allergies Home Medications Medication Instructions Recorded Confirmed Type Ipratropium/Albuterol Sulfate 1 puff INHALATION RT-QID 04/01/19 12/31/19 History [Combivent Respimat Inhaler] Potassium Chloride ER [K-Dur 20] 20 meq PO BID 04/01/19 12/31/19 History Pantoprazole [Protonix] 40 mg PO DAILY #14 tablet. 04/03/19 12/31/19 Rx Levofloxacin [Levaquin] 500 mg PO DAILY 10/06/19 12/31/19 History oxyCODONE-APAP 7.5-325MG [Percocet 1 tab PO Q6HR PRN 10/06/19 12/31/19 History 7.5-325 mg] Clopidogrel [Plavix] 75 mg PO HS 10/08/19 12/31/19 History Aspirin 81 mg PO BID chew 10/14/19 12/31/19 Rx Cholecalciferol [Vitamin D3 (25 1,000 unit PO DAILY 12/31/19 12/31/19 History Mcg = 1000 Iu)] Doxycycline Hyclate 100 mg PO BID 12/31/19 12/31/19 History Fluconazole [Diflucan] 100 mg PO DAILY 12/31/19 12/31/19 History Metoprolol Tartrate [Lopressor] 50 mg PO BID 12/31/19 12/31/19 History Torsemide [Demadex] 20 mg PO BID 12/31/19 12/31/19 History metOLazone 2.5 mg PO BID 12/31/19 12/31/19 History Allergies Allergy/AdvReac Type Severity Reaction Status Date / Time sulfamethoxazole Allergy BURNING ON Verified 12/31/19 17:22 [From Bactrim] LIPS Physical Exam Vitals: Vital Signs Temp Pulse Resp BP Pulse Ox 12/31/19 20:43 94 16 115/63 95 12/31/19 19:08 98.2 F 88 18 112/50 96 12/31/19 13:40 97.6 F 89 20 108/65 95 Intake and Output 12/31/19 12/31/19 12/31/19 06:59 14:59 22:59 Other: Weight 144.378 kg General Appearance: Alert, cooperative, no distress, appears stated age. Morbidly obese Neck HEENT: Supple, no lymphadenopathy, no thyroid enlargement, no carotid bruits. Lungs: Decreased breath sound basis without without crackles or wheezes no rhonchi, no deformity. Chest Wall: Decrease expansion with deep inspiration no tenderness and no deformity was found on exam, no costochondral pain or discomfort. Heart: Regular rate and rhythm, S1, S2 normal, no murmur, rub or gallop. Back: Symmetric, no curvature, ROM normal, no CVA tenderness. Abdomen: Soft, non-tender, bowel sounds active all four quadrants, no masses, no organomegaly. Extremities: Right hip incision does not totally heal still have slight fluctuation and more like abscess underneath has been draining to the surface abnormal fluid. Pulses: 2+ and symmetric. Skin: Skin color, texture, tugor normal, no rashes or lesions. Neurologic: Alert oriented x3 cranial nerves II through XII intact, no motor deficit, no abnormal balance or gait. Results CBC & Chem 7: 12/31/19 15:40 12/31/19 15:40 Labs: Abnormal Lab Results - Last 24 Hours (Table) 12/31/19 12/31/19 12/31/19 Range/Units 15:40 15:40 15:40 WBC 15.9 H (3.8-10.6) k/uL Hct 46.1 H (34.0-46.0) % Neutrophils # 12.4 H (1.3-7.7) k/uL ESR 29 H (0-20) mm/hr Sodium 136 L (137-145) mmol/L Potassium 3.2 L (3.5-5.1) mmol/L Chloride 96 L (98-107) mmol/L Carbon Dioxide 32 H (22-30) mmol/L BUN 45 H (7-17) mg/dL Creatinine 1.32 H (0.52-1.04) mg/dL Glucose 111 H (74-99) mg/dL Plasma Lactic Acid Byron 2.4 H* (0.7-2.0) mmol/L Alkaline Phosphatase 169 H (38-126) U/L C-Reactive Protein 36.5 H (<10.0) mg/L 12/31/19 Range/Units 19:10 WBC (3.8-10.6) k/uL Hct (34.0-46.0) % Neutrophils # (1.3-7.7) k/uL ESR (0-20) mm/hr Sodium (137-145) mmol/L Potassium (3.5-5.1) mmol/L Chloride (98-107) mmol/L Carbon Dioxide (22-30) mmol/L BUN (7-17) mg/dL Creatinine (0.52-1.04) mg/dL Glucose (74-99) mg/dL Plasma Lactic Acid Byron 2.9 H* (0.7-2.0) mmol/L Alkaline Phosphatase (38-126) U/L C-Reactive Protein (<10.0) mg/L Assessment and Plan Assessment: 1 severe cellulitis and abscess of the right hip within 8 weeks of doing surgery, patient will be continue on vancomycin and awaiting for ID for further management. 2 possible abscess in the right hip area since her surgery patient will be watch this will be resected or drained for her antibiotic spacer. 3 Hyperlipidemia: Remain on diet control only. 4 chronic edema: Remain on Demadex 20 mg twice a day. 5 Arrhythmia: Patient remain on Lopressor 50 mg twice a day. 6 fluid overload: Patient to continue treatment with diuretics and keep watching body weight. 7 chronic bronchitis with use culture positive for the sputum patient remain on Diflucan 100 mg daily. 8 COPD: Continue patient on DuoNeb and Pulmicort. CODE STATUS: Full code. Admit patient to inpatient status for more than 2 night stay.
[2020-01-01] MEDS: metOLazone 2.5 MG TAB PO SCH (08:06)
[2020-01-01] MEDS: SODIUM CHLORIDE 0.9% 1,000 ML IV SCH ×3 (08:06→19:46)
[2020-01-01] MEDS: PANTOPRAZOLE 40 MG TABLET PO SCH (08:06)
[2020-01-01] MEDS: TORSEMIDE 20 MG TAB PO SCH ×2 (08:07→22:07)
[2020-01-01] MEDS: POTASSIUM CHLORIDE ER 20 MEQ TAB.ER PO SCH ×2 (08:07→21:55)
[2020-01-01] MEDS: CHOLECALCIFEROL 1,000 UNIT TAB PO SCH (08:08)
[2020-01-01] MEDS: ASPIRIN 81 MG PO SCH ×2 (08:08→21:55)
[2020-01-01] MEDS: METOPROLOL TARTRATE 50 MG TAB PO SCH ×2 (08:08→21:55)
[2020-01-01] MEDS: CLOPIDOGREL 75 MG TAB PO SCH (08:11)
[2020-01-01] MEDS: VANCOMYCIN 2,000 MG in SODIUM CHLORIDE 0.9% 500 ML 500 ML IVPB SCH (08:15)
[2020-01-01 08:47] LABS: Basophils # (A) 0.1 k/uL (0-0.2); Basophils % (A) 1 %; Eosinophils # (A) 0.4 k/uL (0-0.7); Eosinophils % (A) 3 %; HCT 43.6 % (34.0-46.0); HGB 13.9 gm/dL (11.4-16.0); Hypochromasia Slight; Lymphocytes # (A) 2.1 k/uL (1.0-4.8); Lymphocytes % (A) 14 %; MCH 29.1 pg (25.0-35.0); MCHC 31.8 g/dL (31.0-37.0); MCV 91.6 fL (80.0-100.0); Mean Platelet Volume 7.3; Monocytes # (A) 0.7 k/uL (0-1.0); Monocytes % (A) 5 %; Neutrophils # (A) 11.9 k/uL (1.3-7.7); Neutrophils % (A) 77 %; Platelet Count 335 k/uL (150-450); RBC 4.76 m/uL (3.80-5.40); WBC 15.4 k/uL (3.8-10.6)
[2020-01-01] MEDS: IPRATROPIUM-ALBUTEROL 3 ML NEB INHALATION SCH ×4 (09:07→19:28)
--- NOTE | 2020-01-01 09:48 | P.NPCON ---
History of Present Illness - Reason for Consult acute renal failure - History of Present Illness Reason for consultation: Acute kidney injury History of present illness: Patient is a 54-year-old female seen in consultation for acute kidney injury. Patient's creatinine on admission was 1.32. Baseline creatinine near 1. Patient presented to the hospital due to drainage from right hip surgical wound. Patient states she was having clear drainage and states her wound hasn't healed since the surgery in October 2019. She also admits to edema in her lower extremities and is maintained on torsemide 20 mg twice daily. Patient states her weight is coming down and she has lost about 18 pounds over the last few weeks. She denies chest pain or shortness of breath. Oral intake is good. No vomiting or diarrhea. No fever or chills. Denies use of nonsteroidals. No history of diabetes. Patient has history of diastolic CHF. Denies family history of renal disease. Hemodynamically stable. Vital signs are stable. General: The patient appeared well nourished and normally developed. HEENT: Head exam is unremarkable. Neck is without jugular venous distension. LUNGS: Breath sounds decreased. HEART: Rate and Rhythm are regular. ABDOMEN: Soft, nontender. Obese. EXTREMITITES: 1+ edema. Past Medical History Past Medical History: Asthma, COPD, GERD/Reflux, Hyperlipidemia, Hypertension, Myocardial Infarction ([place]), Osteoarthritis (OA) Additional Past Medical History / Comment(s): MIGRAINES. VARICOSE VEINS. DANISHA. CARPAL TUNNEL. GENITAL WARTS, finishing antibiotics for UTI, urinary incontinence, avascular necrosis right hip Last Myocardial Infarction Date:: Mar 2019 History of Any Multi-Drug Resistant Organisms: MRSA Date of last positivie culture/infection: 07/2018 MDRO Source:: left leg Past Surgical History: Bladder Surgery, Heart Catheterization Additional Past Surgical History / Comment(s): [facility] 01/30/12, hip replacement. Past Anesthesia/Blood Transfusion Reactions: No Reported Reaction Past Psychological History: No Psychological Hx Reported Smoking Status: Current every day smoker Past Alcohol Use History: None Reported Past Drug Use History: None Reported - Past Family History Father Family Medical History: Cancer Additional Family Medical History / Comment(s): Father is . Patient had no contact with her father. Mother Family Medical History: Diabetes Mellitus Additional Family Medical History / Comment(s): Mother is alive at age 72 with history of COPD, diabetes, chronic kidney disease. No known coronary artery disease. Brother(s) Additional Family Medical History / Comment(s): Patient has 1 brother with no major medical problems. Patient's 1 sister with ADD. Patient has 1 son with ADD and one daughter with asthma. Medications and Allergies Home Medications Medication Instructions Recorded Confirmed Type Ipratropium/Albuterol Sulfate 1 puff INHALATION RT-QID 04/01/19 12/31/19 History [Combivent Respimat Inhaler] Potassium Chloride ER [K-Dur 20] 20 meq PO BID 04/01/19 12/31/19 History Pantoprazole [Protonix] 40 mg PO DAILY #14 tablet. 04/03/19 12/31/19 Rx Levofloxacin [Levaquin] 500 mg PO DAILY 10/06/19 12/31/19 History oxyCODONE-APAP 7.5-325MG [Percocet 1 tab PO Q6HR PRN 10/06/19 12/31/19 History 7.5-325 mg] Clopidogrel [Plavix] 75 mg PO HS 10/08/19 12/31/19 History Aspirin 81 mg PO BID chew 10/14/19 12/31/19 Rx Cholecalciferol [Vitamin D3 (25 1,000 unit PO DAILY 12/31/19 12/31/19 History Mcg = 1000 Iu)] Doxycycline Hyclate 100 mg PO BID 12/31/19 12/31/19 History Fluconazole [Diflucan] 100 mg PO DAILY 12/31/19 12/31/19 History Metoprolol Tartrate [Lopressor] 50 mg PO BID 12/31/19 12/31/19 History Torsemide [Demadex] 20 mg PO BID 12/31/19 12/31/19 History metOLazone 2.5 mg PO BID 12/31/19 12/31/19 History Allergies Allergy/AdvReac Type Severity Reaction Status Date / Time sulfamethoxazole Allergy BURNING ON Verified 12/31/19 17:22 [From Bactrim] LIPS Physical Exam Vitals: Vital Signs Temp Pulse Resp BP Pulse Ox 01/01/20 09:26 80 01/01/20 09:07 84 01/01/20 05:42 98.1 F 90 16 118/56 95 12/31/19 20:43 94 16 115/63 95 12/31/19 19:08 98.2 F 88 18 112/50 96 12/31/19 13:40 97.6 F 89 20 108/65 95 Results - Lab Results Most recent lab results Calcium 9.4 mg/dL (8.4-10.2) 12/31/19 15:40 01/01/20 07:48 12/31/19 15:40 Assessment and Plan Plan: Assessment: 1. Acute kidney injury mostly prerenal secondary to cardiorenal syndrome. Creatinine 1.32 admission. Baseline creatinine near 0.8 from April 2019. 2. Hypokalemia from diuresis. 3. Right hip surgical wound maintained on antibiotics. 4. Chronic diastolic CHF. Plan: Hep-Lock IV fluids. Maintain torsemide 20 mg twice daily. Hold metolazone for now. Check urinalysis. Avoid nephrotoxins. Continue to monitor renal function and urine output. Follow-up morning labs. I will also add a magnesium level. Thank you for the consultation. I will continue to follow the patient with you during her hospital stay.
--- NOTE | 2020-01-01 10:34 | P.CNOR ---
History of Present Illness - HPI Consult date: 01/01/20 History of present illness: This is a 54-year-old female who is admitted for drainage from her right hip incision. Patient underwent direct anterior approach right total hip arthroplasty on 10/13/[address] Fei Pryor. Patient has been on multiple courses of oral antibiotics as an outpatient. Patient continues to have drainage from her surgical incision. Patient recently underwent CT scan of her right th igh on 12/25/[address] Valencia. Patient is seen and evaluated at bedside today. Patient states that the drainage from her incision is clear and sometimes soaks her clothes. Patient denies any fever, chills, numbness, weakness or tingling. Patient's past medical history significant for asthma, hyperlipidemia, hypertension, myocardial infarction, and osteoarthritis Review of Systems See HPI. Past Medical History Past Medical History: Asthma, COPD, GERD/Reflux, Hyperlipidemia, Hypertension, Myocardial Infarction ([place]), Osteoarthritis (OA) Additional Past Medical History / Comment(s): MIGRAINES. VARICOSE VEINS. DANISHA. CARPAL TUNNEL. GENITAL WARTS, finishing antibiotics for UTI, urinary inc ontinence, avascular necrosis right hip Last Myocardial Infarction Date:: Mar 2019 History of Any Multi-Drug Resistant Organisms: MRSA Year Discovered:: 07/2018 MDRO Source:: left leg Past Surgical History: Bladder Surgery, Heart Catheterization Additional Past Surgical History / Comment(s): [facility] 01/30/12, hip replacement. Past Anesthesia/Blood Transfusion Reactions: No Reported Reaction Past Psychological History: No Psychological Hx Reported Smoking Status: Current every day smoker Past Alcohol Use History: None Reported Past Drug Use History: None Reported - Past Family History Father Family Medical History: Cancer Additional Family Medical History / Comment(s): Father is . Patient had no contact with her father. Mother Family Medical History: Diabetes Mellitus Additional Family Medical History / Comment(s): Mother is alive at age 72 with history of COPD, diabetes, chronic kidney disease. No known coronary artery disease. Brother(s) Additional Family Medical History / Comment(s): Patient has 1 brother with no major medical problems. Patient's 1 sister with ADD. Patient has 1 son with ADD and one daughter with asthma. Medications and Allergies Home Medications Medication Instructions Recorded Confirmed Type Ipratropium/Albuterol Sulfate 1 puff INHALATION RT-QID 04/01/19 12/31/19 History [Combivent Respimat Inhaler] Potassium Chloride ER [K-Dur 20] 20 meq PO BID 04/01/19 12/31/19 History Pantoprazole [Protonix] 40 mg PO DAILY #14 tablet. 04/03/19 12/31/19 Rx Levofloxacin [Levaquin] 500 mg PO DAILY 10/06/19 12/31/19 History oxyCODONE-APAP 7.5-325MG [Percocet 1 tab PO Q6HR PRN 10/06/19 12/31/19 History 7.5-325 mg] Clopidogrel [Plavix] 75 mg PO HS 10/08/19 12/31/19 History Aspirin 81 mg PO BID chew 10/14/19 12/31/19 Rx Cholecalciferol [Vitamin D3 (25 1,000 unit PO DAILY 12/31/19 12/31/19 History Mcg = 1000 Iu)] Doxycycline Hyclate 100 mg PO BID 12/31/19 12/31/19 History Fluconazole [Diflucan] 100 mg PO DAILY 12/31/19 12/31/19 History Metoprolol Tartrate [Lopressor] 50 mg PO BID 12/31/19 12/31/19 History Torsemide [Demadex] 20 mg PO BID 12/31/19 12/31/19 History metOLazone 2.5 mg PO BID 12/31/19 12/31/19 History Allergies Allergy/AdvReac Type Severity Reaction Status Date / Time sulfamethoxazole Allergy BURNING ON Verified 12/31/19 17:22 [From Bactrim] LIPS Physical Examination On exam patient is resting comfortably in bed in no acute distress. Patient is alert and oriented x3. The right anterior hip incision is draining serosanguineous fluid. There is mild surrounding erythema. Compartments are soft. Calf is soft and nontender to palpation. Sensation intact. Patient has full foot and ankle motion without pain or difficulty. Neurovascular status and circulatory status are intact. Results - Labs Labs: Abnormal Lab Results - Last 24 Hours (Table) 12/31/19 12/31/19 12/31/19 Range/Units 15:40 15:40 15:40 WBC 15.9 H (3.8-10.6) k/uL Hct 46.1 H (34.0-46.0) % Neutrophils # 12.4 H (1.3-7.7) k/uL ESR 29 H (0-20) mm/hr Sodium 136 L (137-145) mmol/L Potassium 3.2 L (3.5-5.1) mmol/L Chloride 96 L (98-107) mmol/L Carbon Dioxide 32 H (22-30) mmol/L BUN 45 H (7-17) mg/dL Creatinine 1.32 H (0.52-1.04) mg/dL Glucose 111 H (74-99) mg/dL Plasma Lactic Acid Byron 2.4 H* (0.7-2.0) mmol/L Alkaline Phosphatase 169 H (38-126) U/L C-Reactive Protein 36.5 H (<10.0) mg/L 12/31/19 01/01/20 Range/Units 19:10 07:48 WBC 15.4 H (3.8-10.6) k/uL Hct (34.0-46.0) % Neutrophils # 11.9 H (1.3-7.7) k/uL ESR (0-20) mm/hr Sodium (137-145) mmol/L Potassium (3.5-5.1) mmol/L Chloride (98-107) mmol/L Carbon Dioxide (22-30) mmol/L BUN (7-17) mg/dL Creatinine (0.52-1.04) mg/dL Glucose (74-99) mg/dL Plasma Lactic Acid Byron 2.9 H* (0.7-2.0) mmol/L Alkaline Phosphatase (38-126) U/L C-Reactive Protein (<10.0) mg/L H & H 12/31/19 01/01/20 Range/Units 15:40 07:48 Hgb 14.5 13.9 (11.4-16.0) gm/dL Hct 46.1 H 43.6 (34.0-46.0) % Coagulation 12/31/19 Range/Units 15:40 INR 1.0 (<1.2) Result Diagrams: 01/01/20 07:48 12/31/19 15:40 Assessment and Plan (1) Status post total hip replacement, right Current Visit: No Status: Acute Code(s): Z96.641 - PRESENCE OF RIGHT ARTIFICIAL HIP JOINT SNOMED Code(s): 216638472071 (2) Seroma Current Visit: Yes Status: Acute Code(s): XZD9160 - SNOMED Code(s): 454415997 Plan: 1. Patient is to be NPO. 2. Patient's white blood cell count is 15.4 today. Patient is afebrile. 3. Planing for I&D of the right thigh later today pending medical clearance and consent.
[2020-01-01 10:48] LABS: African American GFR (CKD) 49.9 (60.0-200.0); Anion Gap 11.6 mmol/L (4.00-12.00); BUN/Creat Ratio 35.71 Ratio (12.00-20.00); Calcium 9.5 mg/dL (8.7-10.3); Carbon Dioxide 31.4 mmol/L (21.6-31.8); Non-African American GFR(CKD) 43.1 (60.0-200.0); Potassium 3.3 mmol/L (3.5-5.5)
[2020-01-01 13:28] LABS: Appearance,Urine Clear (Clear); Bilirubin,Urine Negative (Negative); Blood,Urine Negative (Negative); Color,Urine Light Yellow; Glucose,Urine (UA) Negative (Negative); Ketones,Urine Negative (Negative); Leukocyte Esterase,Urine Negative (Negative); Nitrite,Urine Negative (Negative); Protein,Urine Negative (Negative); Urobilinogen,Urine <2.0 mg/dL (<2.0)
--- NOTE | 2020-01-01 14:36 | P.PN ---
Subjective Progress Note Date: 01/01/20 HISTORY OF PRESENT ILLNESS 54-year-old male with past medical history of right hip replacement in October 10, history of hypertension hyperlipidemia who presented to demurs department after being contacted by her primary care physician with the complaint of worsening drainage from the surgical site for the hip surgery done in October 10 patient continued to have significant drainage culture as an outpatient came back positive for staph epi and enterococcus with culture susceptible to vancomycin. Patient also has been seen Dr. lan off we did her original hip surgery and recommended not to do any intervention to open the site for now. All agree to admit patient to the hospital IV antibiotics and see if it improved without having to go for resection of prostatic and antibiotic spacer. Also patient has been doing well slight increased edema of the lower extremity with worsening arthritis of both knees. 12/31: Patient is seen again today in the emergency center. She is scheduled for I&D this afternoon of the right hip wound with Dr. Pryor. She is maintained on vancomycin. She has been afebrile, heart rate 78, blood pressure 106/69, pulse ox 91% on room air. Repeat blood work reveals WBC 15.4, hemoglobin 13.9, platelet count 335. Sodium 136, potassium 3.3, chloride 93, CO2 31, BUN 15 creatinine 1.4. Magnesium 1.8. Urinalysis negative for infection. HCG nondetected. REVIEW OF SYSTEMS CONSTITUTIONAL: Well-developed no acute respiratory distress. Denies fever EYES: No icterus sclerae, no conjunctivitis. EARS, NOSE, MOUTH, THROAT, and FACE: No sore throat, lymphadenopathy, carotid bruits or deformity. RESPIRATORY: No SOB cough or wheezes. CARDIOVASCULAR: No CP, Palpitation, PND, Orthopnea, or angina. GASTROINTESTINAL: No Abd pain, Nausea or vomiting, no Diarrhea or constipation, No GI Bleed, no distention or masses. GENITOURINARY: Negative for Hematuria or UTI, no kidney stones. INTEGUMENT/BREAST: Negative for any muscular injury with mild osteoarthritis.. HEMATOLOGIC/LYMPHATIC: Negative for bleed or purpura. MUSCULOSKELTAL: Negative for Myalgia or arthralgia. NEURLOGICAL: No LOC, Sz or syncope, blurred vision dizziness or abnormality.. BEHAVIORAL/PSYCH: Negative. ENDOCRINE: Negative. PHYSICAL EXAMINATION General Appearance: Alert, cooperative, no distress, appears stated age. Morbidly obese Neck HEENT: Supple, no lymphadenopathy, no thyroid enlargement, no carotid bruits. Lungs: Decreased breath sound basis without without crackles or wheezes no rhonchi, no deformity. Chest Wall: Decrease expansion with deep inspiration no tenderness and no deformity was found on exam, no costochondral pain or discomfort. Heart: Regular rate and rhythm, S1, S2 normal, no murmur, rub or gallop. Back: Symmetric, no curvature, ROM normal, no CVA tenderness. Abdomen: Soft, non-tender, bowel sounds active all four quadrants, no masses, no organomegaly. Extremities: Right hip incision has small open area with drainage. Pulses: 2+ and symmetric. Skin: Skin color, texture, tugor normal, no rashes or lesions. Neurologic: Alert oriented x3 cranial nerves II through XII intact, no motor deficit, no abnormal balance or gait. ASSESSMENT AND PLAN 1 severe cellulitis and abscess of the right hip within 8 weeks of doing surgery, patient will be continue on vancomycin and ID scheduled for this afternoon. 2 possible abscess in the right hip area since her surgery patient will be watch this will be resected or drained for her antibiotic spacer. 3 Hyperlipidemia: Remain on diet control only. 4 chronic edema: Remain on Demadex 20 mg twice a day. 5 Arrhythmia: Patient remain on Lopressor 50 mg twice a day. 6 fluid overload: Patient to continue treatment with diuretics and keep watching body weight. 7 chronic bronchitis with use culture positive for the sputum patient remain on Diflucan 100 mg daily. 8 COPD: Continue patient on DuoNeb and Pulmicort. CODE STATUS: Full code. DISCHARGE PLAN Most likely return home Impression and plan of care have been directed as dictated by the signing physician. Megan Rico nurse practitioner acting as scribe for signing physician. Objective - Vital Signs Vital signs: Vital Signs Temp 98.1 F 01/01/20 05:42 Pulse 90 01/01/20 05:42 Resp 16 01/01/20 05:42 BP 118/56 01/01/20 05:42 Pulse Ox 95 01/01/20 05:42 Intake & Output 12/31/19 01/01/20 01/01/20 18:59 06:59 18:59 Weight 144.378 kg - Labs CBC & Chem 7: 01/01/20 07:48 01/01/20 07:48 Labs: Abnormal Lab Results - Last 24 Hours (Table) 12/31/19 12/31/19 12/31/19 Range/Units 15:40 15:40 15:40 WBC 15.9 H (3.8-10.6) k/uL Hct 46.1 H (34.0-46.0) % Neutrophils # 12.4 H (1.3-7.7) k/uL ESR 29 H (0-20) mm/hr Sodium 136 L (137-145) mmol/L Potassium 3.2 L (3.5-5.1) mmol/L Chloride 96 L (98-107) mmol/L Carbon Dioxide 32 H (22-30) mmol/L BUN 45 H (7-17) mg/dL Creatinine 1.32 H (0.52-1.04) mg/dL Glucose 111 H (74-99) mg/dL Plasma Lactic Acid Byron 2.4 H* (0.7-2.0) mmol/L Alkaline Phosphatase 169 H (38-126) U/L C-Reactive Protein 36.5 H (<10.0) mg/L 12/31/19 Range/Units 19:10 WBC (3.8-10.6) k/uL Hct (34.0-46.0) % Neutrophils # (1.3-7.7) k/uL ESR (0-20) mm/hr Sodium (137-145) mmol/L Potassium (3.5-5.1) mmol/L Chloride (98-107) mmol/L Carbon Dioxide (22-30) mmol/L BUN (7-17) mg/dL Creatinine (0.52-1.04) mg/dL Glucose (74-99) mg/dL Plasma Lactic Acid Byron 2.9 H* (0.7-2.0) mmol/L Alkaline Phosphatase (38-126) U/L C-Reactive Protein (<10.0) mg/L
[2020-01-01] MEDS ORDERED: ONDANSETRON 4 MG/2 ML VIAL IVP PRN (15:01)
[2020-01-01] MEDS ORDERED: HYDROmorphone 0.5 MG/0.5 ML SYRINGE IVP PRN ×2 (15:01)
[2020-01-01] MEDS ORDERED: HYDROmorphone 1 MG/ML 1 ML SYRINGE IVP PRN (15:01)
[2020-01-01] MEDS ORDERED: SENNOSIDES-DOCUSATE SODIUM 1 EACH TAB PO PRN (15:01)
[2020-01-01] MEDS ORDERED: LACTATED RINGERS 1,000 ML IV ONE (19:26)
[2020-01-01] MEDS ORDERED: DEXAMETHASONE SOD PHOSPHATE 10 MG/ML 1 ML VIAL IV ONE (19:39)
[2020-01-01] MEDS ORDERED: PROPOFOL 10 MG/ML 20 ML VIAL IV ONE (19:41)
[2020-01-01] MEDS ORDERED: LIDOCAINE 1% INJ 10MG/ML (20 ML MDV) ONE (19:41)
[2020-01-01] MEDS ORDERED: fentaNYL (PF) 50 MCG/ML 2 ML AMP ONE (19:41)
[2020-01-01] MEDS ORDERED: SUCCINYLCHOLINE CHLORIDE 100 MG/5 ML SYR IV ONE (19:41)
[2020-01-01] MEDS ORDERED: MIDAZOLAM 2 MG/2 ML VIAL ONE (19:41)
[2020-01-01] MEDS ORDERED: VANCOMYCIN 1,000 MG VIAL MISCELLANE ONE (20:05)
[2020-01-01] MEDS ORDERED: TOBRAMYCIN SULFATE 1.2 GM VIAL MISCELLANE ONE (20:06)
[2020-01-01] MEDS ORDERED: NALOXONE 0.4 MG/ML 1 ML VIAL IV PRN (20:18)
--- NOTE | 2020-01-01 20:21 | P.OP ---
Date of Procedure: 01/01/20 Preoperative Diagnosis: Seroma right thigh Postoperative Diagnosis: Seroma right thigh Procedure(s) Performed: Incision and drainage of the seroma of the right thigh Anesthesia: CURLY Surgeon: Fei Pryor Estimated Blood Loss (ml): 10 Pathology: other (Cultures 2) Condition: stable Disposition: PACU Indications for Procedure: This is a 54-year-old female that has had a total hip replacement performed proximal was 68 weeks ago. She continues to have a draining area on the distal aspect of her wound but is been draining clear fluid. She had cultures obtained at her family physician's office which grew multitude of bacteria. She was admitted for this draining leg wound because of this and discussed the decision to perform an incision and drainage of the right thigh. This was discussed with the patient and informed consent was obtained. Operative Findings: The operative findings are consistent with a seroma of the right thigh Description of Procedure: The patient was seen in the preoperative area consent was reviewed and the operative site was marked with a skin marker. Patient was then brought to the operating room and given an anesthetic by the anesthesia department. Her right thigh was then prepped and draped in usual sterile fashion. The area where the wound was draining was then sharply opened with a knife and a large seroma was encountered. The fluid was clear with no signs of any purulence . This was then cultured 2. There area was then thoroughly irrigated and explored. After thorough irrigation and exploration which revealed no deep connection. Next a batch a stimulant antibiotic(4 mixed and placed in the wound. Wound was then closed with 3-0 Vicryl followed by best for the skin. Sterile dressing was applied the patient was transferred recovery room stable condition.
[2020-01-02] MEDS: oxyCODONE-APAP 7.5-325MG 1 EACH TAB PO PRN ×3 (01:29→19:45)
[2020-01-02 06:46] LABS: Basophils % (A) 0 %; Eosinophils % (A) 0 %; HCT 42.1 % (34.0-46.0); HGB 12.5 gm/dL (11.4-16.0); Hypochromasia Moderate; Lymphocytes % (A) 7 %; MCH 27.5 pg (25.0-35.0); MCHC 29.6 g/dL (31.0-37.0); MCV 93.1 fL (80.0-100.0); Mean Platelet Volume 7.6; Monocytes # (A) 0.2 k/uL (0-1.0); Monocytes % (A) 2 %; Neutrophils # (A) 12.3 k/uL (1.3-7.7); Neutrophils % (A) 91 %; Platelet Count 294 k/uL (150-450); RBC 4.52 m/uL (3.80-5.40); RDW 14.9 % (11.5-15.5); WBC 13.6 k/uL (3.8-10.6)
[2020-01-02] MEDS: IPRATROPIUM-ALBUTEROL 3 ML NEB INHALATION SCH ×4 (07:54→20:01)
[2020-01-02] MEDS: CHOLECALCIFEROL 1,000 UNIT TAB PO SCH (08:25)
[2020-01-02] MEDS: METOPROLOL TARTRATE 50 MG TAB PO SCH ×2 (08:25→19:45)
[2020-01-02] MEDS: POTASSIUM CHLORIDE ER 20 MEQ TAB.ER PO SCH ×2 (08:25→19:45)
[2020-01-02] MEDS: ASPIRIN 81 MG PO SCH ×2 (08:25→19:44)
[2020-01-02] MEDS: TORSEMIDE 20 MG TAB PO SCH ×2 (08:25→19:45)
[2020-01-02] MEDS: PANTOPRAZOLE 40 MG TABLET PO SCH (08:25)
[2020-01-02] MEDS: VANCOMYCIN 2,000 MG in SODIUM CHLORIDE 0.9% 500 ML 500 ML IVPB SCH (08:26)
[2020-01-02] MEDS: CLOPIDOGREL 75 MG TAB PO SCH (08:45)
--- NOTE | 2020-01-02 09:03 | P.PN ---
Subjective Progress Note Date: 01/02/20 Principal diagnosis: Status post total right hip arthroplasty. Postop seroma right hip. This is a 54-year-old female that has had a total hip replacement performed approximately 6-8 weeks ago. She continued to have a draining area on the distal aspect of her wound but is been draining clear fluid. She had cultures obtained at her family physician's office which grew multitude of bacteria. She was admitted for this draining leg wound because of this and discussed the decision to perform an incision and drainage of the right thigh. This was discussed with the patient and informed consent was obtained. She is now postoperative day #1 status post I&D of the right hip. She has no new complaints or concerns today. Vital signs and labs are stable. Objective - Vital Signs Vital signs: Vital Signs Temp 98.4 F 01/02/20 07:00 Pulse 84 01/02/20 08:08 Resp 16 01/02/20 07:00 BP 108/55 01/02/20 07:00 Pulse Ox 91 L 01/02/20 07:00 Intake & Output 01/01/20 01/02/20 01/02/20 18:59 06:59 18:59 Intake Total 200 Output Total 1810 Balance -1610 Weight 144.378 kg Intake: IV 200 Output: Urine 1800 Estimated Blood Loss 10 Other: Voiding Method Toilet Incontinent # Voids 4 - Exam This is a pleasant 54-year-old female in no acute distress. She is alert and oriented 3. Exam of the right hip reveals that her dressing is clean, dry and intact. She has minimal pain with logroll of the hip. She has full foot and ankle motion without difficulty or pain. Neurovascular status to the lower extremity is intact. - Labs CBC & Chem 7: 01/02/20 05:31 01/01/20 07:48 Labs: Abnormal Lab Results - Last 24 Hours (Table) 01/01/20 01/02/20 Range/Units 07:48 05:31 WBC 13.6 H (3.8-10.6) k/uL MCHC 29.6 L (31.0-37.0) g/dL Neutrophils # 12.3 H (1.3-7.7) k/uL Potassium 3.3 L (3.5-5.5) mmol/L Chloride 93 L (96-109) mmol/L BUN 50.0 H (9.0-27.0) mg/dL Est GFR (CKD-EPI)AfAm 49.9 L (60.0-200.0) Est GFR (CKD-EPI)NonAf 43.1 L (60.0-200.0) BUN/Creatinine Ratio 35.71 H (12.00-20.00) Ratio Glucose 113 H (70-110) mg/dL Microbiology - Last 24 Hours (Table) 01/01/20 20:25 Wound Culture - Preliminary Hip - Right 01/01/20 20:25 Wound Culture - Preliminary Hip - Right 01/01/20 20:25 Anaerobic Culture - Preliminary Hip - Right 01/01/20 20:25 Anaerobic Culture - Preliminary Hip - Right 12/31/19 15:40 Blood Culture - Preliminary Blood No Growth after 24 hours Assessment and Plan (1) History of right hip replacement Current Visit: Yes Status: Acute Code(s): Z96.641 - PRESENCE OF RIGHT A RTIFICIAL HIP JOINT SNOMED Code(s): 940504621 (2) Seroma Current Visit: Yes Status: Acute Code(s): QMK5355 - SNOMED Code(s): 950607333 Plan: The clinical findings are discussed with the patient. We'll leave her dressing in place until tomorrow. Dressing may be changed by nursing staff tomorrow. She may be up with physical therapy as tolerated. Cultures from the right hip are pending. Blood culture shows no growth at 24 hours.
[2020-01-02 09:26] LABS: African American GFR (CKD) 49.9 (60.0-200.0); Albumin 3.7 g/dL (3.80-4.90); Albumin/Globulin Ratio 1.42 (1.60-3.17); BUN/Creat Ratio 35.71 Ratio (12.00-20.00); Calcium 9.1 mg/dL (8.7-10.3); Globulin 2.6 g/dL (1.6-3.3); Non-African American GFR(CKD) 43.1 (60.0-200.0); Potassium 3.5 mmol/L (3.5-5.5); Total Bilirubin 0.1 mg/dL (0.3-1.2); Total Protein 6.3 g/dL (6.2-8.2)
[2020-01-02] MEDS: SODIUM CHLORIDE 0.9% 1,000 ML IV SCH (10:45)
--- NOTE | 2020-01-02 12:10 | P.PN ---
Subjective Progress Note Date: 01/02/20 HISTORY OF PRESENT ILLNESS 54-year-old male with past medical history of right hip replacement in October 10, history of hypertension hyperlipidemia who presented to demurs department after being contacted by her primary care physician with the complaint of worsening drainage from the surgical site for the hip surgery done in October 10 patient continued to have significant drainage culture as an outpatient came back positive for staph epi and enterococcus with culture susceptible to vancomycin. Patient also has been seen Dr. lan off we did her original hip surgery and recommended not to do any intervention to open the site for now. All agree to admit patient to the hospital IV antibiotics and see if it improved without having to go for resection of prostatic and antibiotic spacer. Also patient has been doing well slight increased edema of the lower extremity with worsening arthritis of both knees. 12/31: Patient is seen again today in the emergency center. She is scheduled for I&D this afternoon of the right hip wound with Dr. Pryor. She is maintained on vancomycin. She has been afebrile, heart rate 78, blood pressure 106/69, pulse ox 91% on room air. Repeat blood work reveals WBC 15.4, hemoglobin 13.9, platelet count 335. Sodium 136, potassium 3.3, chloride 93, CO2 31, BUN 15 creatinine 1.4. Magnesium 1.8. Urinalysis negative for infection. HCG nondetected. 01/01: Patient is seen today on the MedSurg floor. She underwent I&D yesterday thought to be a seroma. Cultures are in progress. Patient complains of a little nausea without vomiting. She denies any abdominal pain, no chest pain. She states she did not sleep last night and trazodone will be added. She had a bowel movement yesterday morning. Patient has been afebrile, heart rate 84, blood pressure 108/55, pulse ox 91% on room air. Repeat blood work reveals WBC 13.6, hemoglobin 12.5, platelet count 294. Sodium 137, potassium 3.5, chloride 93, CO2 32, BUN 15 creatinine 1.4. Blood sugar 187. Total bilirubin 0.1, AST 22, alkaline phosphatase 155, ALT 21. Blood culture reveals no growth after 24 hours. REVIEW OF SYSTEMS CONSTITUTIONAL: Well-developed no acute respiratory distress. Denies fever. Denies chills. EYES: No icterus sclerae, no conjunctivitis. EARS, NOSE, MOUTH, THROAT, and FACE: No sore throat, lymphadenopathy, carotid bruits or deformity. RESPIRATORY: No SOB cough or wheezes. CARDIOVASCULAR: No CP, Palpitation, PND, Orthopnea, or angina. GASTROINTESTINAL: No Abd pain, Nausea or vomiting, no Diarrhea or constipation, No GI Bleed, no distention or masses. GENITOURINARY: Negative for Hematuria or UTI, no kidney stones. INTEGUMENT/BREAST: Negative for any muscular injury with mild osteoarthritis.. HEMATOLOGIC/LYMPHATIC: Negative for bleed or purpura. MUSCULOSKELTAL: Negative for Myalgia or arthralgia. NEURLOGICAL: No LOC, Sz or syncope, blurred vision dizziness or abnormality.. BEHAVIORAL/PSYCH: Negative. ENDOCRINE: Negative. PHYSICAL EXAMINATION General Appearance: Alert, cooperative, no distress while resting in bed, appears stated age. Morbidly obese Neck HEENT: Supple, no lymphadenopathy, no thyroid enlargement, no carotid bruits. Lungs: Decreased breath sound basis without without crackles or wheezes no rhonchi, no deformity. Chest Wall: Decrease expansion with deep inspiration no tenderness and no deformity was found on exam, no costochondral pain or discomfort. Heart: Regular rate and rhythm, S1, S2 normal, no murmur, rub or gallop. Back: Symmetric, no curvature, ROM normal, no CVA tenderness. Abdomen: Soft, non-tender, bowel sounds active all four quadrants, no masses, no organomegaly. Extremities: Right hip incision has small open area with drainage. Pulses: 2+ and symmetric. Skin: Skin color, texture, tugor normal, no rashes or lesions. Neurologic: Alert oriented x3 cranial nerves II through XII intact, no motor deficit, no abnormal balance or gait. ASSESSMENT AND PLAN 1 severe cellulitis and abscess of the right hip within 8 weeks of doing surgery, patient will be continue on vancomycin and status post I&D. Wound cultures are in progress. Continue vancomycin. 2 seroma in the right hip area since her surgery. 3 Hyperlipidemia: Remain on diet control only. 4 chronic edema: Remain on Demadex 20 mg twice a day. 5 Arrhythmia: Patient remain on Lopressor 50 mg twice a day. 6 fluid overload: Patient to continue treatment with diuretics and keep watching body weight. 7 chronic bronchitis with use culture positive for the sputum patient remain on Diflucan 100 mg daily. 8 COPD: Continue patient on DuoNeb and Pulmicort. 9 hyperglycemia most likely secondary to steroids during surgery. CODE STATUS: Full code. DISCHARGE PLAN Most likely return home Impression and plan of care have been directed as dictated by the signing physician. Megan Rico nurse practitioner acting as scribe for signing physician. Objective - Vital Signs Vital signs: Vital Signs Temp 98.4 F 01/02/20 07:00 Pulse 84 01/02/20 08:08 Resp 16 01/02/20 07:00 BP 108/55 01/02/20 07:00 Pulse Ox 91 L 01/02/20 07:00 Intake & Output 01/01/20 01/02/20 01/02/20 18:59 06:59 18:59 Intake Total 200 Output Total 1810 Balance -1610 Weight 144.378 kg Intake: IV 200 Output: Urine 1800 Estimated Blood Loss 10 Other: Voiding Method Toilet Incontinent # Voids 4 - Labs CBC & Chem 7: 01/02/20 05:31 01/02/20 05:31 Labs: Abnormal Lab Results - Last 24 Hours (Table) 01/01/20 01/02/20 01/02/20 Range/Units 07:48 05:31 05:31 WBC 13.6 H (3.8-10.6) k/uL MCHC 29.6 L (31.0-37.0) g/dL Neutrophils # 12.3 H (1.3-7.7) k/uL Potassium 3.3 L (3.5-5.5) mmol/L Chloride 93 L 93 L (96-109) mmol/L Carbon Dioxide 32.0 H (21.6-31.8) mmol/L BUN 50.0 H 50.0 H (9.0-27.0) mg/dL Est GFR (CKD-EPI)AfAm 49.9 L 49.9 L (60.0-200.0) Est GFR (CKD-EPI)NonAf 43.1 L 43.1 L (60.0-200.0) BUN/Creatinine Ratio 35.71 H 35.71 H (12.00-20.00) Ratio Glucose 113 H 187 H (70-110) mg/dL Total Bilirubin 0.1 L (0.3-1.2) mg/dL Alkaline Phosphatase 155 H (41-126) U/L Albumin 3.70 L (3.80-4.90) g/dL Albumin/Globulin Ratio 1.42 L (1.60-3.17) g/dL Microbiology - Last 24 Hours (Table) 01/01/20 20:25 Wound Culture - Preliminary Hip - Right 01/01/20 20:25 Wound Culture - Preliminary Hip - Right 01/01/20 20:25 Anaerobic Culture - Preliminary Hip - Right 01/01/20 20:25 Anaerobic Culture - Preliminary Hip - Right 12/31/19 15:40 Blood Culture - Preliminary Blood No Growth after 24 hours
--- NOTE | 2020-01-02 13:09 | PN ---
PROGRESS NOTE HISTORY: The patient is seen for followup for acute kidney injury. Her serum creatinine is noted to be around 1.4 mg/dL, on admission it was 1.32. Review of previous labs shows a creatinine of 0.8 on 04/16/2019. The patient denies use of any nonsteroidal anti- inflammatory agents prior to admission. She is currently maintained on oral Demadex. She did receive IV fluids initially which is now discontinued. The patient is also getting vancomycin. She states she has been voiding well. Blood pressures have been slightly on the lower side, although not below 100. No nephrotoxic medications noted on board except for vancomycin. EXAMINATION: Today patient is comfortable awake. Blood pressure is 108/55, heart rate 82 per minute, she is afebrile. Examination of the heart S1, S2. Examination of the lungs, bilateral breath sounds are heard. Abdomen is soft nontender. Exam of lower extremities shows no significant edema. Right hip area is currently dressed. LABS: Sodium 137, potassium 3.5, chloride 93, hemoglobin 12.5. BUN of 50, serum creatinine 1.4. UA is completely benign. ASSESSMENT: 1. Acute kidney injury, currently nonoliguric with completely benign urinalysis, status post IV fluids initially. Currently maintained on Demadex. There may be a component of cardiorenal acute kidney injury. She is maintained on Demadex, which I will continue for now. The patient is also on vancomycin. We will need to monitor the level closely. 2. Right hip cellulitis abscess maintained on antibiotics. 3. History of right hip arthroplasty on October 11, 2019. 4. Chronic obstructive pulmonary disease. PLAN: Continue with the Demadex for now. Monitor vancomycin levels closely. MMODL / IJN: [id number] /
[2020-01-02] MEDS: ENOXAPARIN 40 MG/0.4 ML SYRINGE SQ SCH (14:35)
[2020-01-02] MEDS: traZODone HCL 50 MG TAB PO SCH (19:45)
[2020-01-03] MEDS: oxyCODONE-APAP 7.5-325MG 1 EACH TAB PO PRN ×3 (02:31→21:39)
[2020-01-03] MEDS: CLOPIDOGREL 75 MG TAB PO SCH (07:59)
[2020-01-03] MEDS: ASPIRIN 81 MG PO SCH ×2 (07:59→21:40)
[2020-01-03] MEDS: TORSEMIDE 20 MG TAB PO SCH ×2 (08:00→21:41)
[2020-01-03] MEDS: POTASSIUM CHLORIDE ER 20 MEQ TAB.ER PO SCH ×2 (08:00→21:40)
[2020-01-03] MEDS: CHOLECALCIFEROL 1,000 UNIT TAB PO SCH (08:00)
[2020-01-03] MEDS: METOPROLOL TARTRATE 50 MG TAB PO SCH ×2 (08:00→21:39)
[2020-01-03] MEDS: ENOXAPARIN 40 MG/0.4 ML SYRINGE SQ SCH (08:00)
[2020-01-03] MEDS: PANTOPRAZOLE 40 MG TABLET PO SCH (08:00)
[2020-01-03] MEDS: VANCOMYCIN 2,000 MG in SODIUM CHLORIDE 0.9% 500 ML 500 ML IVPB SCH (08:08)
[2020-01-03] MEDS: IPRATROPIUM-ALBUTEROL 3 ML NEB INHALATION SCH ×4 (08:28→19:53)
--- NOTE | 2020-01-03 11:37 | P.PN ---
Subjective Progress Note Date: 01/03/20 This patient is a 54-year-old female who is admitted for a draining incision of the right hip. She initially underwent a direct anterior approach right total hip arthroplasty on 10/13/[address] Fei Pryor. Patient has been on multiple courses of oral antibiotics outpatient. She continued to experience clear drainage from her incision. She was admitted for this draining wound, as well as possible surgical intervention. Patient underwent an incision and drainage of the seroma of the right thigh on 01/01/20. Today's postoperative day #2. Patient states she overall feels well this morning, she has no complaints or concerns. She is tolerating her diet well. She has been ambulating with a walker with no issues. She denies pain in the right hip. She denies fevers, chills, nausea, vomiting, chest pain, shortness of breath. Vital signs stable. Objective - Vital Signs Vital signs: Vital Signs Temp 97.9 F 01/03/20 07:24 Pulse 89 01/03/20 08:43 Resp 17 01/03/20 08:00 BP 117/68 01/03/20 07:24 Pulse Ox 93 L 01/03/20 07:24 Intake & Output 01/02/20 01/03/20 01/03/20 18:59 06:59 18:59 Intake Total 296 Output Total 1100 1600 900 Balance -1100 -1600 -604 Intake: Oral 296 Output: Urine 1100 1600 900 Other: Voiding Method Toilet Toilet Toilet Incontinent Diaper Diaper Incontinent Incontinent # Voids 1 1 - Exam On examination, the patient is lying in bed in no apparent distress. She is alert and oriented 3. On inspection of the right hip, there is a surgical dressing in place. Surgical dressing taken down and reveals mild clear drainage of the right hip incision. There is no pain on palpation of the right hip or thigh. No surrounding erythema. Motor and sensory function is intact of the right lower extremity. Patient has good strength range of motion of the right ankle and toes. Right lower extremity is warm and well-perfused with brisk capillary refill distally. Dorsalis pedis pulse +2. Calves are soft and nontender to palpation bilaterally. No evidence of DVT. - Labs CBC & Chem 7: 01/02/20 05:31 01/02/20 05:31 Labs: Microbiology - Last 24 Hours (Table) 12/31/19 15:40 Blood Culture - Preliminary Blood No Growth after 48 hours 01/01/20 20:25 Gram Stain - Preliminary Hip - Right Wound Culture - Preliminary 01/01/20 20:25 Gram Stain - Preliminary Hip - Right Wound Culture - Preliminary Assessment and Plan Assessment: Status-post incision and drainage of the seroma of the right thigh on 01/01/[address] Fei Pryor. Postoperative day #2. Plan: - Patient may weight-bear as tolerated on the operative leg with a walker. She may continue to work with physical therapy for gait and balance training. - Surgical dressing was changed bedside with nursing today. - Wound cultures are currently pending. Blood cultures show no growth after 48 hours. - Currently on Lovenox for DVT prophylaxis per internal medicine. Nephrology following for DESHAWN. - Anticipate discharge home next week.
[2020-01-03 12:06] LABS: Basophils # (A) 0.1 k/uL (0-0.2); Basophils % (A) 0 %; Eosinophils # (A) 0.3 k/uL (0-0.7); Eosinophils % (A) 2 %; HCT 45.1 % (34.0-46.0); HGB 13.5 gm/dL (11.4-16.0); Hypochromasia Moderate; Lymphocytes # (A) 2.7 k/uL (1.0-4.8); Lymphocytes % (A) 16 %; MCH 27.7 pg (25.0-35.0); MCV 92.4 fL (80.0-100.0); Mean Platelet Volume 7.3; Monocytes # (A) 0.8 k/uL (0-1.0); Monocytes % (A) 5 %; Neutrophils # (A) 12.5 k/uL (1.3-7.7); Neutrophils % (A) 75 %; Platelet Count 364 k/uL (150-450); RBC 4.88 m/uL (3.80-5.40); RDW 14.9 % (11.5-15.5); WBC 16.5 k/uL (3.8-10.6)
[2020-01-03 12:15] LABS: ALT 24 U/L (4-34); AST 33 U/L (14-36); African American GFR (CKD) 57 (>60 ml/min/1.73 sqM); Albumin 3.9 g/dL (3.5-5.0); Albumin/Globulin Ratio 1.1; Alkaline Phosphatase 137 U/L (38-126); Anion Gap 10 mmol/L; Blood Urea Nitrogen 58 mg/dL (7-17); Calcium 9.9 mg/dL (8.4-10.2); Carbon Dioxide 36 mmol/L (22-30); Chloride 91 mmol/L (98-107); Globulin 3.6 g/dL; Glucose 138 mg/dL (74-99); Non-African American GFR(CKD) 50 (>60 ml/min/1.73 sqM); Potassium 3.7 mmol/L (3.5-5.1); Sodium 137 mmol/L (137-145); Total Bilirubin 0.5 mg/dL (0.2-1.3); Total Protein 7.5 g/dL (6.3-8.2)
--- NOTE | 2020-01-03 12:23 | P.PN ---
Subjective Progress Note Date: 01/03/20 HISTORY OF PRESENT ILLNESS 54-year-old male with past medical history of right hip replacement in October 10, history of hypertension hyperlipidemia who presented to demurs department after being contacted by her primary care physician with the complaint of worsening drainage from the surgical site for the hip surgery done in October 10 patient continued to have significant drainage culture as an outpatient came back positive for staph epi and enterococcus with culture susceptible to vancomycin. Patient also has been seen Dr. lan off we did her original hip surgery and recommended not to do any intervention to open the site for now. All agree to admit patient to the hospital IV antibiotics and see if it improved without having to go for resection of prostatic and antibiotic spacer. Also patient has been doing well slight increased edema of the lower extremity with worsening arthritis of both knees. 12/31: Patient is seen again today in the emergency center. She is scheduled for I&D this afternoon of the right hip wound with Dr. Pryor. She is maintained on vancomycin. She has been afebrile, heart rate 78, blood pressure 106/69, pulse ox 91% on room air. Repeat blood work reveals WBC 15.4, hemoglobin 13.9, platelet count 335. Sodium 136, potassium 3.3, chloride 93, CO2 31, BUN 15 creatinine 1.4. Magnesium 1.8. Urinalysis negative for infection. HCG nondetected. 01/01: Patient is seen today on the MedSurg floor. She underwent I&D yesterday thought to be a seroma. Cultures are in progress. Patient complains of a little nausea without vomiting. She denies any abdominal pain, no chest pain. She states she did not sleep last night and trazodone will be added. She had a bowel movement yesterday morning. Patient has been afebrile, heart rate 84, blood pressure 108/55, pulse ox 91% on room air. Repeat blood work reveals WBC 13.6, hemoglobin 12.5, platelet count 294. Sodium 137, potassium 3.5, chloride 93, CO2 32, BUN 15 creatinine 1.4. Blood sugar 187. Total bilirubin 0.1, AST 22, alkaline phosphatase 155, ALT 21. Blood culture reveals no growth after 24 hours. 01/02: Patient denies any new complaints. She states that she was up in a chair most of the day yesterday. She did sleep better during the night with trazodone and got at least a few hours in a row. She has been afebrile, heart rate 88, blood pressure 117/68, pulse ox 93% on room air. Wound cultures in progress. WBC 16.5, hemoglobin 13.5. Chloride 91, CO2 36, BUN 15 creatinine 1.25. Alkaline phosphatase 137. Otherwise lab work is unremarkable. Patient e ncouraged to be up in a chair. Orthopedics is cleared her for weightbearing as tolerated with walker. Nephrology is following for acute kidney injury with recommendations to continue current dose of Demadex. Vancomycin level ordered by Dr. Yusuf. REVIEW OF SYSTEMS CONSTITUTIONAL: Well-developed no acute respiratory distress. Denies fever. Denies chills. EYES: No icterus sclerae, no conjunctivitis. EARS, NOSE, MOUTH, THROAT, and FACE: No sore throat, lymphadenopathy, carotid bruits or deformity. RESPIRATORY: No SOB cough or wheezes. Denies cough CARDIOVASCULAR: No CP, Palpitation, PND, Orthopnea, or angina. GASTROINTESTINAL: No Abd pain, Nausea or vomiting, no Diarrhea or constipation, No GI Bleed, no distention or masses. GENITOURINARY: Negative for Hematuria or UTI, no kidney stones. INTEGUMENT/BREAST: Negative for any muscular injury with mild osteoarthritis.. HEMATOLOGIC/LYMPHATIC: Negative for bleed or purpura. MUSCULOSKELTAL: Negative for Myalgia or arthralgia. NEURLOGICAL: No LOC, Sz or syncope, blurred vision dizziness or abnormality.. BEHAVIORAL/PSYCH: Negative. ENDOCRINE: Negative. PHYSICAL EXAMINATION General Appearance: Alert, cooperative, no distress while resting in bed, appears stated age. Morbidly obese Neck HEENT: Supple, no lymphadenopathy, no thyroid enlargement, no carotid bruits. Lungs: Decreased breath sound basis without without crackles or wheezes no rhonchi, no deformity. Chest Wall: Decrease expansion with deep inspiration no tenderness and no deformity was found on exam, no costochondral pain or discomfort. Heart: Regular rate and rhythm, S1, S2 normal, no murmur, rub or gallop. Back: Symmetric, no curvature, ROM normal, no CVA tenderness. Abdomen: Soft, non-tender, bowel sounds active all four quadrants, no masses, no organomegaly. Extremities: Right hip incision dressing in place. Pulses: 2+ and symmetric. Skin: Skin color, texture, tugor normal, no rashes or lesions. Neurologic: Alert oriented x3 cranial nerves II through XII intact, no motor deficit, no abnormal balance or gait. ASSESSMENT AND PLAN 1 severe cellulitis and abscess of the right hip within 8 weeks of doing surgery, patient will be continue on vancomycin and status post I&D. Wound cultures are in progress. Continue vancomycin. 2 seroma in the right hip area since her surgery. 3 Hyperlipidemia: Remain on diet control only. 4 chronic edema: Remain on Demadex 20 mg twice a day. 5 Arrhythmia: Patient remain on Lopressor 50 mg twice a day. 6 fluid overload: Patient to continue treatment with diuretics and keep watching body weight. 7 chronic bronchitis with use culture positive for the sputum patient remain on Diflucan 100 mg daily. 8 COPD: Continue patient on DuoNeb and Pulmicort. 9 hyperglycemia most likely secondary to steroids during surgery. 10 acute kidney injury. Nephrology consult appreciated. Continue Demadex. Vancomycin level ordered CODE STATUS: Full code. DISCHARGE PLAN Most likely return home early this week Impression and plan of care have been directed as dictated by the signing physician. Megan Rico nurse practitioner acting as scribe for signing physician. Objective - Vital Signs Vital signs: Vital Signs Temp 97.9 F 01/03/20 07:24 Pulse 89 01/03/20 08:43 Resp 17 01/03/20 08:00 BP 117/68 01/03/20 07:24 Pulse Ox 93 L 01/03/20 07:24 Intake & Output 01/02/20 01/03/20 01/03/20 18:59 06:59 18:59 Intake Total 296 Output Total 1100 1600 900 Balance -1100 -1600 -604 Intake: Oral 296 Output: Urine 1100 1600 900 Other: Voiding Method Toilet Toilet Toilet Incontinent Diaper Diaper Incontinent Incontinent # Voids 1 1 - Labs CBC & Chem 7: 01/03/20 11:51 01/03/20 11:51 Labs: Microbiology - Last 24 Hours (Table) 12/31/19 15:40 Blood Culture - Preliminary Blood No Growth after 48 hours 01/01/20 20:25 Gram Stain - Preliminary Hip - Right Wound Culture - Preliminary 01/01/20 20:25 Gram Stain - Preliminary Hip - Right Wound Culture - Preliminary
--- NOTE | 2020-01-03 12:32 | PN ---
PROGRESS NOTE Patient is seen for followup for acute kidney injury. She is currently comfortable. Patient denies any significant complaints. She is having her dressing changed on her right hip. PHYSICAL EXAMINATION: On examination today, blood pressure was 117/68, heart rate 84 per minute, patient is afebrile. Examination of the heart S1, S2. Examination of the lungs, bilateral breath sounds are heard. ABDOMEN: Soft, nontender, obese. Exam of lower extremities shows edema 1+ bilaterally with chronic skin changes. [employer] exam grossly intact. The incision on the left hip area appears to be clean. LABS: Show sodium 137, potassium 3.5, chloride 93, CO2 is 32, BUN 50, serum creatinine 1.4. ASSESSMENT: 1. Acute kidney injury. Renal function currently stable. UA is completely benign. Serum creatinine staying at 1.4. The patient is currently maintained on Demadex, which I will continue. She is encouraged to increase oral intake. She is not on any nephrotoxic medications except for vancomycin and vancomycin level will be ordered. 2. Status post right knee arthroplasty with infection and cellulitis, maintained on antibiotics currently. 3. Chronic obstructive pulmonary disease. 4. Obesity. 5. Hypokalemia, status post replacement. PLAN: Check labs today and check vancomycin level. MMODL / IJN: [id number] /
[2020-01-03] MEDS ORDERED: POTASSIUM CHLORIDE ER 20 MEQ TAB.ER PO ONE ×2 (21:00→22:00)
[2020-01-03] MEDS ORDERED: TORSEMIDE 20 MG TAB PO SCH (21:29)
[2020-01-03] MEDS: traZODone HCL 50 MG TAB PO SCH (21:39)
[2020-01-04 07:12] VITALS: BP 113/69; RESP 20; TEMP 98
[2020-01-04] MEDS: IPRATROPIUM-ALBUTEROL 3 ML NEB INHALATION SCH ×2 (07:36→11:22)
[2020-01-04 07:56] LABS: Basophils # (A) 0.1 k/uL (0-0.2); Basophils % (A) 1 %; Eosinophils # (A) 0.4 k/uL (0-0.7); Eosinophils % (A) 3 %; HCT 42.2 % (34.0-46.0); HGB 12.9 gm/dL (11.4-16.0); Hypochromasia Moderate; Lymphocytes # (A) 2.2 k/uL (1.0-4.8); Lymphocytes % (A) 17 %; MCH 28.6 pg (25.0-35.0); MCHC 30.7 g/dL (31.0-37.0); MCV 93.3 fL (80.0-100.0); Monocytes # (A) 0.7 k/uL (0-1.0); Monocytes % (A) 5 %; Neutrophils # (A) 9.5 k/uL (1.3-7.7); Neutrophils % (A) 72 %; Platelet Count 193 k/uL (150-450); RBC 4.52 m/uL (3.80-5.40); RDW 14.9 % (11.5-15.5); WBC 13.1 k/uL (3.8-10.6)
[2020-01-04] MEDS ORDERED: VANCOMYCIN TROUGH DUE 1 EACH MISC MISCELLANE ONE (08:00)
[2020-01-04] MEDS: CLOPIDOGREL 75 MG TAB PO SCH (08:02)
[2020-01-04] MEDS: POTASSIUM CHLORIDE ER 20 MEQ TAB.ER PO SCH (08:02)
[2020-01-04] MEDS: PANTOPRAZOLE 40 MG TABLET PO SCH (08:02)
[2020-01-04] MEDS: ENOXAPARIN 40 MG/0.4 ML SYRINGE SQ SCH (08:02)
[2020-01-04] MEDS: METOPROLOL TARTRATE 50 MG TAB PO SCH (08:02)
[2020-01-04] MEDS: ASPIRIN 81 MG PO SCH (08:02)
[2020-01-04] MEDS: CHOLECALCIFEROL 1,000 UNIT TAB PO SCH (08:03)
[2020-01-04 08:16] VITALS: PULSE 90
--- NOTE | 2020-01-04 10:01 | P.DS ---
Providers Date of admission: 12/31/19 16:30 Expected date of discharge: 01/04/20 Attending physician: Noemy Valencia Consults: 12/31/19 16:31 Consult Physician Urgent Consulting Provider: Facundo Almeida Consult Reason/Comments: ckd Do you want consulting provider notified?: Yes 12/31/19 20:38 Consult Physician Urgent Consulting Provider: Fei Pryor Consult Reason/Comments: right hip replacement Do you want consulting provider notified?: Already Contacted Primary care physician: Noemy Valencia [facility] Course: HISTORY OF PRESENT ILLNESS 54-year-old male with past medical history of right hip replacement in October 10, history of hypertension hyperlipidemia who presented to demurs department after being contacted by her primary care physician with the complaint of worsening drainage from the surgical site for the hip surgery done in October 10 patient continued to have significant drainage culture as an outpatient came back positive for staph epi and enterococcus with culture susceptible to vancomycin. Patient also has been seen Dr. lan off we did her original hip surgery and recommended not to do any intervention to open the site for now. All agree to admit patient to the hospital IV antibiotics and see if it improved without having to go for resection of prostatic and antibiotic spacer. Also patient has been doing well slight increased edema of the lower extremity with worsening arthritis of both knees. 12/31: Patient is seen again today in the emergency center. She is scheduled for I&D this afternoon of the right hip wound with Dr. Pryor. She is maintained on vancomycin. She has been afebrile, heart rate 78, blood pressure 106/69, pulse ox 91% on room air. Repeat blood work reveals WBC 15.4, hemoglobin 13.9, platelet count 335. Sodium 136, potassium 3.3, chloride 93, CO2 31, BUN 15 creatinine 1.4. Magnesium 1.8. Urinalysis negative for infection. HCG nondetected. 01/01: Patient is seen today on the [facility] floor. She underwent I&D yesterday thought to be a seroma. Cultures are in progress. Patient complains of a little nausea without vomiting. She denies any abdominal pain, no chest pain. She states she did not sleep last night and trazodone will be added. She had a bowel movement yesterday morning. Patient has been afebrile, heart rate 84, blood pressure 108/55, pulse ox 91% on room air. Repeat blood work reveals WBC 13.6, hemoglobin 12.5, platelet count 294. Sodium 137, potassium 3.5, chloride 93, CO2 32, BUN 15 creatinine 1.4. Blood sugar 187. Total bilirubin 0.1, AST 22, alkaline phosphatase 155, ALT 21. Blood culture reveals no growth after 24 hours. 01/02: Patient denies any new complaints. She states that she was up in a chair most of the day yesterday. She did sleep better during the night with trazodone and got at least a few hours in a row. She has been afebrile, heart rate 88, blood pressure 117/68, pulse ox 93% on room air. Wound cultures in progress. WBC 16.5, hemoglobin 13.5. Chloride 91, CO2 36, BUN 15 creatinine 1.25. Alkaline phosphatase 137. Otherwise lab work is unremarkable. Patient encouraged to be up in a chair. Orthopedics is cleared her for weightbearing as tolerated with walker. Nephrology is following for acute kidney injury with recommendations to continue current dose of Demadex. Vancomycin level ordered by Dr. Yusuf. 01/03: Reviewed case with Dr. Arriaga and because the lesion at the right hip was seroma and cultures are all negative, no need for antibiotics at home. Orthopedics is clear for discharge today. She has been afebrile, heart rate 90, blood pressure 113/69, pulse ox 91% on room air. Repeat blood work reveals Tamara BC 13.1, hemoglobin 12.9. Creatinine 0.96. Patient will be discharged home today in stable condition. ASSESSMENT AND PLAN 1 seroma of the right hip, abscess ruled out. 2 seroma in the right hip area since her surgery. 3 Hyperlipidemia. 4 chronic edema. 5 Arrhythmia. 6 fluid overload. 7 chronic bronchitis. 8 COPD. 9 hyperglycemia most likely secondary to steroids. 10 acute kidney injury. DISCHARGE PLAN home Impression and plan of care have been directed as dictated by the signing physician. Megan Rico nurse practitioner acting as scribe for signing physician. Patient Condition at Discharge: Good Plan - Discharge Summary Discharge Rx Participant: Yes New Discharge Prescriptions: Continue Potassium Chloride ER [K-Dur 20] 20 meq PO BID Ipratropium/Albuterol Sulfate [Combivent Respimat Inhaler] 1 puff INHALATION RT-QID Pantoprazole [Protonix] 40 mg PO DAILY #14 tablet. oxyCODONE-APAP 7.5-325MG [Percocet 7.5-325 mg] 1 tab PO Q6HR PRN PRN Reason: Pain Clopidogrel [Plavix] 75 mg PO HS Aspirin 81 mg PO BID chew metOLazone 2.5 mg PO BID Cholecalciferol [Vitamin D3 (25 Mcg = 1000 Iu)] 1,000 unit PO DAILY Metoprolol Tartrate [Lopressor] 50 mg PO BID Torsemide [Demadex] 20 mg PO BID Discontinued Levofloxacin [Levaquin] 500 mg PO DAILY Doxycycline Hyclate 100 mg PO BID Fluconazole [Diflucan] 100 mg PO DAILY Discharge Medication List Ipratropium/Albuterol Sulfate [Combivent Respimat Inhaler] 1 puff INHALATION RT- QID 04/01/19 [History] Potassium Chloride ER [K-Dur 20] 20 meq PO BID 04/01/19 [History] Pantoprazole [Protonix] 40 mg PO DAILY #14 tablet. 04/03/19 [Rx] oxyCODONE-APAP 7.5-325MG [Percocet 7.5-325 mg] 1 tab PO Q6HR PRN 10/06/19 [History] Clopidogrel [Plavix] 75 mg PO HS 10/08/19 [History] Aspirin 81 mg PO BID chew 10/14/19 [Rx] Cholecalciferol [Vitamin D3 (25 Mcg = 1000 Iu)] 1,000 unit PO DAILY 12/31/19 [History] Metoprolol Tartrate [Lopressor] 50 mg PO BID 12/31/19 [History] Torsemide [Demadex] 20 mg PO BID 12/31/19 [History] metOLazone 2.5 mg PO BID 12/31/19 [History] Follow up Appointment(s)/Referral(s): Noemy Valencia MD [Primary Care Provider] - 01/11/20 10:30 am Fei Pryor DO [Doctor of Osteopathic Medicine] - 01/08/20 1:05 pm Patient Instructions/Handouts: Abscess (GEN), Incision and Drainage (DC) Activity/Diet/Wound Care/Special Instructions: Change dressing daily and as often as needed to keep incision clean and dry. Sutures to be removed in 10-14 days. Weight bearing as tolerated to the right lower extremity. Please follow up with [facility] in one week and call with any questions or concerns, . Discharge Disposition: HOME SELF-CARE
--- NOTE | 2020-01-04 11:17 | P.PN ---
Subjective Progress Note Date: 01/04/20 This is a 54 year-old female who is status post I&D of the right thigh. This is post operative day #3 and patient is seen and evaluated at bedside with Dr. Fei Pryor. Patient admits to some soreness in the right leg, but attributes this to walking yesterday. Otherwise, patient states that her pain is well controlled and she hasn't noticed any significant drainage. Patient denies any new complaints today. Objective - Vital Signs Vital signs: Vital Signs Temp 98.0 F 01/04/20 07:12 Pulse 90 01/04/20 08:14 Resp 20 01/04/20 08:14 BP 113/69 01/04/20 07:12 Pulse Ox 91 L 01/04/20 07:12 Intake & Output 01/03/20 01/04/20 01/04/20 18:59 06:59 18:59 Intake Total 296 Output Total 1900 900 Balance -1604 -900 Intake: Oral 296 Output: Urine 1900 900 Other: Voiding Method Toilet Toilet Toilet Diaper Diaper Diaper Incontinent Incontinent Incontinent # Voids 1 # Bowel Movements 0 - Exam On exam patient is resting comfortably in bed in no acute distress. Vital signs are stable. Dressing is clean, dry and intact. No active drainage. Calf is soft and nontender to palpation. Patient has full foot and ankle motion without pain or difficulty. Neurovascular status and circulatory status are intact. - Labs CBC & Chem 7: 01/04/20 07:30 01/04/20 07:30 Labs: Abnormal Lab Results - Last 24 Hours (Table) 01/03/20 01/03/20 01/03/20 Range/Units 11:51 11:51 11:51 WBC 16.5 H (3.8-10.6) k/uL MCHC 30.0 L (31.0-37.0) g/dL Neutrophils # 12.5 H (1.3-7.7) k/uL Chloride 91 L (98-107) mmol/L Carbon Dioxide 36 H (22-30) mmol/L BUN 58 H (7-17) mg/dL Creatinine 1.25 H (0.52-1.04) mg/dL Glucose 138 H (74-99) mg/dL Alkaline Phosphatase 137 H (38-126) U/L Random Vancomycin 42.9 H* ug/mL 01/04/20 Range/Units 07:30 WBC 13.1 H (3.8-10.6) k/uL MCHC 30.7 L (31.0-37.0) g/dL Neutrophils # 9.5 H (1.3-7.7) k/uL Chloride (98-107) mmol/L Carbon Dioxide (22-30) mmol/L BUN (7-17) mg/dL Creatinine (0.52-1.04) mg/dL Glucose (74-99) mg/dL Alkaline Phosphatase (38-126) U/L Random Vancomycin ug/mL Microbiology - Last 24 Hours (Table) 01/01/20 20:25 Anaerobic Culture - Preliminary Hip - Right 01/01/20 20:25 Anaerobic Culture - Preliminary Hip - Right 12/31/19 15:40 Blood Culture - Preliminary Blood No Growth after 72 hours 01/01/20 20:25 Gram Stain - Final Hip - Right Wound Culture - Final 01/01/20 20:25 Gram Stain - Final Hip - Right Wound Culture - Final Assessment and Plan (1) Status post total hip replacement, right Current Visit: No Status: Acute Code(s): Z96.641 - PRESENCE OF RIGHT ARTIFIC IAL HIP JOINT SNOMED Code(s): 733176197942 (2) Seroma Current Visit: Yes Status: Acute Code(s): LMO3761 - SNOMED Code(s): 274165848 Plan: Continue routine postop care and pain control. Weightbearing as tolerated with a walker. Daily dressing changes or as needed to keep the incision clean and dry. Appreciate input from medicine. Cultures are negative so far. Anticipate discharge home today. Patient is cleared for discharge from an orthopedic standpoint.
[2020-01-04] MEDS: VANCOMYCIN 2,000 MG in SODIUM CHLORIDE 0.9% 500 ML 500 ML IVPB SCH (11:37)
== END 2020-01-04 11:47 | disposition home or self-care (01) | DRG 920 ==
LOC: EC 13:36 → 4SSUR 16:30
PROVIDERS: ADMIT Family Medicine; ATTEND Family Medicine
PROC: 0Y9C0ZZ Drainage of Right Upper Leg, Open Approach (ICD-10-PCS; principal; 2020-01-01 10:55)
DX: M96.842 Postprocedural seroma of a musculoskeletal structure following a musculoskeletal system procedure (principal); I50.32 Chronic diastolic (congestive) heart failure; N17.9 Acute kidney failure, unspecified; I13.0 Hypertensive heart and chronic kidney disease with heart failure and stage 1 through stage 4 chronic kidney disease, or unspecified chronic kidney disease; Z68.43 Body mass index [BMI] 50.0-59.9, adult; T38.0X5A Adverse effect of glucocorticoids and synthetic analogues, initial encounter; J44.9 Chronic obstructive pulmonary disease, unspecified; E78.5 Hyperlipidemia, unspecified; E66.9 Obesity, unspecified; E87.6 Hypokalemia; F17.200 Nicotine dependence, unspecified, uncomplicated; M19.90 Unspecified osteoarthritis, unspecified site; Z96.651 Presence of right artificial knee joint; Z96.641 Presence of right artificial hip joint; N18.9 Chronic kidney disease, unspecified; E66.01 Morbid (severe) obesity due to excess calories; Z79.82 Long term (current) use of aspirin; Z79.899 Other long term (current) drug therapy; Z79.02 Long term (current) use of antithrombotics/antiplatelets; Z88.2 Allergy status to sulfonamides; I25.2 Old myocardial infarction; Z98.890 Other specified postprocedural states; Z86.14 Personal history of Methicillin resistant Staphylococcus aureus infection; Z87.440 Personal history of urinary (tract) infections; Z83.3 Family history of diabetes mellitus; Z82.5 Family history of asthma and other chronic lower respiratory diseases
CPT/HCPCS: 36415; 80048; 80053; 80202; 81003; 81025; 82565; 83605; 83735; 85025; 85610; 85652; 85730; 86140; 87040; 87070; 87075; 87205; 94640; 96365; 96366; 96367; 99284

== ENCOUNTER 2020-05-30 18:08 | Inpatient (IN) | payer OTHER ==
[2020-05-30] MEDS ORDERED: methylPREDNISolone SOD SUCCI 125 MG/2 ML VIAL IV STA (18:35)
[2020-05-30] MEDS ORDERED: IPRATROPIUM-ALBUTEROL 3 ML NEB INHALATION STA (18:35)
--- NOTE | 2020-05-30 18:38 | ED ---
General Adult HPI - General Chief complaint: Shortness of Breath Stated complaint: Dyspnea Time Seen by Provider: 05/30/20 18:11 Source: patient, RN/MD (I did speak with Dr. Skaggs prior to patient arrival), RN notes reviewed Mode of arrival: ambulatory Limitations: no limitations - History of Present Illness Initial comments: Patient is a pleasant 55-year-old female presenting to the emergency Department with cough and shortness of breath. Onset of symptoms was around 6 weeks ago. Patient was tested negative for code bed at that time. Patient has continued cough, dry. Patient has had some chest pressure fairly consistent over the past one week. Symptoms of chest pressure somewhat similar to previous heart attack. Patient has had some mild leg swelling. No calf tenderness. No fevers. Patient has been fatigued. Patient has been on antibiotics and steroids as an outpatient for bronchitis. - Related Data Home Medications Medication Instructions Recorded Confirmed Ipratropium/Albuterol Sulfate 1 puff INHALATION RT-Q4H PRN 04/01/19 05/30/20 [Combivent Respimat Inhaler] Potassium Chloride ER [K-Dur 20] 20 meq PO BID 04/01/19 05/30/20 oxyCODONE-APAP 7.5-325MG [Percocet 1 tab PO Q6HR PRN 10/06/19 05/30/20 7.5-325 mg] Clopidogrel [Plavix] 75 mg PO DAILY 10/08/19 05/30/20 Cholecalciferol [Vitamin D3 (25 6,000 unit PO DAILY 12/31/19 05/30/20 Mcg = 1000 Iu)] Metoprolol Tartrate [Lopressor] 50 mg PO BID 12/31/19 05/30/20 Torsemide [Demadex] 20 mg PO BID 12/31/19 05/30/20 Albuterol Nebulized [Ventolin 2.5 mg INHALATION RT-TID PRN 05/30/20 05/30/20 Nebulized] Ascorbic Acid [Vitamin C] 1,000 mg PO DAILY 05/30/20 05/30/20 Aspirin 81 mg PO DAILY 05/30/20 05/30/20 Atorvastatin Calcium [Lipitor] 40 mg PO HS 05/30/20 05/30/20 Budesonide [Pulmicort] 0.5 mg INHALATION RT-BID PRN 05/30/20 05/30/20 Ferrous Sulfate [Feosol] 325 mg PO DAILY 05/30/20 05/30/20 Losartan Potassium 25 mg PO HS 05/30/20 05/30/20 Propranolol HCl [Propranolol HCl 60 mg PO HS 05/30/20 05/30/20 ER] metOLazone [Zaroxolyn] 5 mg PO DAILY 05/30/20 05/30/20 Allergies Allergy/AdvReac Type Severity Reaction Status Date / Time sulfamethoxazole Allergy BURNING ON Verified 05/30/20 20:18 [From Bactrim] LIPS Review of Systems ROS Statement: Those systems with pertinent positive or pertinent negative responses have been documented in the HPI. ROS Other: All systems not noted in ROS Statement are negative. Constitutional: Reports: chills Eyes: Denies: eye pain ENT: Denies: ear pain Respiratory: Reports: cough, dyspnea Cardiovascular: Reports: chest pain Endocrine: Reports: fatigue Gastrointestinal: Denies: abdominal pain Genitourinary: Denies: dysuria Musculoskeletal: Denies: back pain Skin: Denies: rash Neurological: Denies: weakness Past Medical History Past Medical History: Asthma, COPD, GERD/Reflux, Hyperlipidemia, Hypertension, Myocardial Infarction (MT), Osteoarthritis (OA) Additional Past Medical History / Comment(s): MIGRAINES. VARICOSE VEINS. DANISHA. CARPAL TUNNEL. GENITAL WARTS, finishing antibiotics for UTI, urinary incontinence, avascular necrosis right hip Last Myocardial Infarction Date:: Mar 2019 History of Any Multi-Drug Resistant Organisms: MRSA Date of last positivie culture/infection: 07/2018 MDRO Source:: left leg Past Surgical History: Bladder Surgery, Heart Catheterization Additional Past Surgical History / Comment(s): MONARCH 01/30/12, hip replace ment. Past Anesthesia/Blood Transfusion Reactions: No Reported Reaction Past Psychological History: No Psychological Hx Reported Smoking Status: Current every day smoker Past Alcohol Use History: None Reported Past Drug Use History: None Reported - Past Family History Father Family Medical History: Cancer Additional Family Medical History / Comment(s): Father is . Patient had no contact with her father. Mother Family Medical History: Diabetes Mellitus Additional Family Medical History / Comment(s): Mother is alive at age 72 with history of COPD, diabetes, chronic kidney disease. No known coronary artery disease. Brother(s) Additional Family Medical History / Comment(s): Patient has 1 brother with no major medical problems. Patient's 1 sister with ADD. Patient has 1 son with ADD and one daughter with asthma. General Exam Limitations: no limitations General appearance: alert, in no apparent distress Head exam: Present: normocephalic Eye exam: Present: normal appearance Neck exam: Present: normal inspection Respiratory exam: Present: wheezes, decreased breath sounds Cardiovascular Exam: Present: regular rate, normal rhythm Expanded Peripheral pulses: 2+: Radial (R), Radial (L), Posterior Tibialis (R), Posterior Tibialis (L) GI/Abdominal exam: Present: soft. Absent: tenderness Extremities exam: Present: pedal edema (Trace bilateral). Absent: calf tenderness Neurological exam: Present: alert Psychiatric exam: Present: normal affect, normal mood Skin exam: Present: normal color Course Vital Signs 05/30/20 05/30/20 05/30/20 18:10 18:42 19:07 Temperature 98.2 F Pulse Rate 98 79 84 Respiratory 22 24 Rate Blood Pressure 124/65 105/69 O2 Sat by Pulse 86 L 92 L Oximetry 05/30/20 05/30/20 05/30/20 19:14 19:38 20:08 Temperature 98.1 F Pulse Rate 84 77 82 Respiratory 22 20 Rate Blood Pressure 105/46 113/55 O2 Sat by Pulse 94 L 94 L Oximetry EKG Findings - EKG Comments: EKG Findings:: Sinus rhythm rate of 82. UT 208. QRS 90. QT 380. QTC 443. Superior axis. Poor R-wave progression. Q wave in lead III. Nonspecific ST-T. Medical Decision Making - Medical Decision Making Patient reevaluated and updated. Case discussed with Dr. Valencia who will admit her patient with consult with Dr. Penny. She does request steroids and IV antibiotics and nebulizers and treatment for COPD. She states patient does still smoke. - Lab Data Result diagrams: 05/30/20 19:30 05/30/20 18:37 Lab Results 05/30/20 05/30/20 05/30/20 Range/Units 18:37 18:37 18:37 WBC (3.8-10.6) k/uL RBC (3.80-5.40) m/uL Hgb (11.4-16.0) gm/dL Hct (34.0-46.0) % MCV (80.0-100.0) fL MCH (25.0-35.0) pg MCHC (31.0-37.0) g/dL RDW (11.5-15.5) % Plt Count (150-450) k/uL MPV Neutrophils % % Lymphocytes % % Monocytes % % Eosinophils % % Basophils % % Neutrophils # (1.3-7.7) k/uL Lymphocytes # (1.0-4.8) k/uL Monocytes # (0-1.0) k/uL Eosinophils # (0-0.7) k/uL Basophils # (0-0.2) k/uL Hypochromasia Anisocytosis Macrocytosis PT (9.0-12.0) sec INR (<1.2) APTT (22.0-30.0) sec D-Dimer (<0.60) mg/L FEU Sodium 138 (137-145) mmol/L Potassium 4.2 (3.5-5.1) mmol/L Chloride 89 L (98-107) mmol/L Carbon Dioxide 39 H (22-30) mmol/L Anion Gap 10 mmol/L BUN 48 H (7-17) mg/dL Creatinine 0.97 (0.52-1.04) mg/dL Est GFR (CKD-EPI)AfAm 77 (>60 ml/min/1.73 sqM) Est GFR (CKD-EPI)NonAf 67 (>60 ml/min/1.73 sqM) Glucose 132 H (74-99) mg/dL Plasma Lactic Acid Byron 1.7 (0.7-2.0) mmol/L Calcium 9.5 (8.4-10.2) mg/dL Total Bilirubin 0.6 (0.2-1.3) mg/dL AST 36 (14-36) U/L ALT 15 (4-34) U/L Alkaline Phosphatase 119 (38-126) U/L Troponin I 0.045 H* (0.000-0.034) ng/mL NT-Pro-B Natriuret Pep pg/mL Total Protein 7.7 (6.3-8.2) g/dL Albumin 4.1 (3.5-5.0) g/dL Coronavirus (PCR) (Not Detectd) 05/30/20 05/30/20 05/30/20 Range/Units 18:37 18:37 19:30 WBC (3.8-10.6) k/uL RBC (3.80-5.40) m/uL Hgb (11.4-16.0) gm/dL Hct (34.0-46.0) % MCV (80.0-100.0) fL MCH (25.0-35.0) pg MCHC (31.0-37.0) g/dL RDW (11.5-15.5) % Plt Count (150-450) k/uL MPV Neutrophils % % Lymphocytes % % Monocytes % % Eosinophils % % Basophils % % Neutrophils # (1.3-7.7) k/uL Lymphocytes # (1.0-4.8) k/uL Monocytes # (0-1.0) k/uL Eosinophils # (0-0.7) k/uL Basophils # (0-0.2) k/uL Hypochromasia Anisocytosis Macrocytosis PT 11.6 (9.0-12.0) sec INR 1.1 (<1.2) APTT 22.5 (22.0-30.0) sec D-Dimer 0.56 (<0.60) mg/L FEU Sodium (137-145) mmol/L Potassium (3.5-5.1) mmol/L Chloride (98-107) mmol/L Carbon Dioxide (22-30) mmol/L Anion Gap mmol/L BUN (7-17) mg/dL Creatinine (0.52-1.04) mg/dL Est GFR (CKD-EPI)AfAm (>60 ml/min/1.73 sqM) Est GFR (CKD-EPI)NonAf (>60 ml/min/1.73 sqM) Glucose (74-99) mg/dL Plasma Lactic Acid Byron (0.7-2.0) mmol/L Calcium (8.4-10.2) mg/dL Total Bilirubin (0.2-1.3) mg/dL AST (14-36) U/L ALT (4-34) U/L Alkaline Phosphatase (38-126) U/L Troponin I (0.000-0.034) ng/mL NT-Pro-B Natriuret Pep 795 pg/mL Total Protein (6.3-8.2) g/dL Albumin (3.5-5.0) g/dL Coronavirus (PCR) Not Detected (Not Detectd) 05/30/20 Range/Units 19:30 WBC 12.9 H (3.8-10.6) k/uL RBC 5.09 (3.80-5.40) m/uL Hgb 14.3 (11.4-16.0) gm/dL Hct 46.1 H (34.0-46.0) % MCV 90.6 (80.0-100.0) fL MCH 28.1 (25.0-35.0) pg MCHC 31.1 (31.0-37.0) g/dL RDW 21.7 H (11.5-15.5) % Plt Count 408 (150-450) k/uL MPV 7.0 Neutrophils % 73 % Lymphocytes % 16 % Monocytes % 6 % Eosinophils % 3 % Basophils % 1 % Neutrophils # 9.4 H (1.3-7.7) k/uL Lymphocytes # 2.0 (1.0-4.8) k/uL Monocytes # 0.8 (0-1.0) k/uL Eosinophils # 0.4 (0-0.7) k/uL Basophils # 0.1 (0-0.2) k/uL Hypochromasia Marked Anisocytosis Moderate Macrocytosis Slight PT (9.0-12.0) sec INR (<1.2) APTT (22.0-30.0) sec D-Dimer (<0.60) mg/L FEU Sodium (137-145) mmol/L Potassium (3.5-5.1) mmol/L Chloride (98-107) mmol/L Carbon Dioxide (22-30) mmol/L Anion Gap mmol/L BUN (7-17) mg/dL Creatinine (0.52-1.04) mg/dL Est GFR (CKD-EPI)AfAm (>60 ml/min/1.73 sqM) Est GFR (CKD-EPI)NonAf (>60 ml/min/1.73 sqM) Glucose (74-99) mg/dL Plasma Lactic Acid Byron (0.7-2.0) mmol/L Calcium (8.4-10.2) mg/dL Total Bilirubin (0.2-1.3) mg/dL AST (14-36) U/L ALT (4-34) U/L Alkaline Phosphatase (38-126) U/L Troponin I (0.000-0.034) ng/mL NT-Pro-B Natriuret Pep pg/mL Total Protein (6.3-8.2) g/dL Albumin (3.5-5.0) g/dL Coronavirus (PCR) (Not Detectd) - Radiology Data Radiology results: image reviewed (Chest x-ray shows possible atelectasis) Disposition Clinical Impression: COPD with acute exacerbation Disposition: ADMITTED IP TO THIS HOSP Is patient prescribed a controlled substance at d/c from ED?: No Referrals: Noemy Valencia MD [Primary Care Provider] - 1-2 days Decision Time: 20:53
[2020-05-30 19:03] LABS: Albumin 4.1 g/dL (3.5-5.0); Calcium 9.5 mg/dL (8.4-10.2); Total Bilirubin 0.6 mg/dL (0.2-1.3); Total Protein 7.7 g/dL (6.3-8.2)
[2020-05-30 19:07] LABS: Potassium 4.2 mmol/L (3.5-5.1)
--- NOTE | 2020-05-30 19:07 | XR ---
EXAMINATION TYPE: XR chest 1V portable DATE OF EXAM: 05/30/2020 COMPARISON: 04/01/2019. HISTORY: Shortness of breath. TECHNIQUE: Single frontal view of the chest is obtained. FINDINGS: There is small bibasilar streaky opacities. No pleural effusion, or pneumothorax seen. Th e cardiac silhouette size is enlarged. The osseous structures are intact. IMPRESSION: Small bibasilar opacities, favor atelectasis.
[2020-05-30] MEDS ORDERED: SODIUM CHLORIDE 0.9% 500 ML 500 ML IV STA (19:37)
[2020-05-30 19:53] LABS: Anisocytosis Moderate; Basophils # (A) 0.1 k/uL (0-0.2); Basophils % (A) 1 %; Eosinophils # (A) 0.4 k/uL (0-0.7); Eosinophils % (A) 3 %; HCT 46.1 % (34.0-46.0); HGB 14.3 gm/dL (11.4-16.0); Hypochromasia Marked; Lymphocytes % (A) 16 %; MCH 28.1 pg (25.0-35.0); MCHC 31.1 g/dL (31.0-37.0); MCV 90.6 fL (80.0-100.0); Macrocytosis Slight; Monocytes # (A) 0.8 k/uL (0-1.0); Monocytes % (A) 6 %; Neutrophils # (A) 9.4 k/uL (1.3-7.7); Neutrophils % (A) 73 %; Platelet Count 408 k/uL (150-450); RBC 5.09 m/uL (3.80-5.40); RDW 21.7 % (11.5-15.5); WBC 12.9 k/uL (3.8-10.6)
[2020-05-30 20:10] LABS: D-Dimer 0.56 mg/L FEU (<0.60); INR 1.1 (<1.2); Partial Thromboplastin Time 22.5 sec (22.0-30.0); Prothrombin Time 11.6 sec (9.0-12.0)
[2020-05-30] MEDS ORDERED: LEVOFLOXACIN 750MG-D5W PMX 750 MG in DEXTROSE/WATER 1 150ML.BAG IVPB STA (20:54)
[2020-05-30] MEDS ORDERED: IPRATROPIUM-ALBUTEROL 3 ML NEB INHALATION PRN (20:56)
[2020-05-30] MEDS ORDERED: SODIUM CHLORIDE 0.9% 1,000 ML IV SCH (21:00)
[2020-05-31] MEDS: methylPREDNISolone SOD SUCCI 125 MG/2 ML VIAL IV SCH ×5 (01:27→22:49)
[2020-05-31] MEDS: IPRATROPIUM-ALBUTEROL 3 ML NEB INHALATION SCH ×4 (08:04→19:20)
[2020-05-31] MEDS ORDERED: oxyCODONE-APAP 7.5-325MG 1 EACH TAB PO PRN (09:17)
--- NOTE | 2020-05-31 10:10 | CT ---
EXAMINATION TYPE: CT chest wo con DATE OF EXAM: 05/31/2020 COMPARISON: Chest x-ray from yesterday HISTORY: Pulmonary Fibrosis, COPD, sepsis. CT DLP: 887.4 mGycm. Automated Exposure Control for Dose Reduction was Utilized. TECHNIQUE: CT scan of the thorax is performed without IV contrast. FINDINGS: LUNGS: Focal moderate linear scarring in the right middle lobe. Mild to moderate linear scarring and/ or atelectasis in the lingula and left lower lobe near diaphragm. Slightly more prominent atelectasis and/or consolidation medial right lower lobe with air bronchograms. No pleural effusion or pneumotho rax is evident. Upper lungs are clear. MEDIASTINUM: Lack of IV contrast is noted to limit evaluation for mediastinal and especially hilar ad enopathy. There are some prominent scattered thoracic lymph nodes. For reference right tracheobronchi al 1.2 x 1.0 cm lymph node on image 18 noted. Borderline subcentimeter right paratracheal lymph node image 12 noted. Mild cardiomegaly. No pericardial effusion is seen. OTHER: Low dense thickening to left adrenal gland favors benign lipid rich hyperplasia. Vprj-at-[id number] ate multilevel spurring and disc space narrowing in the spine. IMPRESSION: Mild cardiomegaly with mild/moderate bilateral lower lung linear scarring and/or atelecta sis, cannot exclude acute consolidation medial right lower lobe near diaphragm.
[2020-05-31] MEDS: FUROSEMIDE 10 MG/ML 4 ML VIAL IV SCH ×2 (11:28→20:16)
[2020-05-31] MEDS: CLOPIDOGREL 75 MG TAB PO SCH (11:28)
[2020-05-31] MEDS: METOPROLOL TARTRATE 50 MG TAB PO SCH ×2 (11:29→20:17)
[2020-05-31] MEDS: guaiFENesin 600 MG TABLET.ER PO SCH ×2 (11:29→20:17)
[2020-05-31] MEDS: POTASSIUM CHLORIDE ER 20 MEQ TAB.ER PO SCH ×2 (11:29→20:18)
[2020-05-31] MEDS: metOLazone 5 MG TAB PO SCH (11:29)
[2020-05-31] MEDS: BUDESONIDE 0.5 MG/2 ML NEBU INHALATION SCH ×2 (11:42→19:20)
--- NOTE | 2020-05-31 12:51 | ECHOF ---
Referral Reason:LVF MEASUREMENTS -------- HEIGHT: 165.1 cm WEIGHT: 136.1 kg BP: 136/81 RVIDd: 3.3 cm (< 3.3) IVSd: 1.5 cm (0.6 - 1.1) LVIDd: 3.6 cm (3.9 - 5.3) LVPWd: 1.6 cm (0.6 - 1.1) IVSs: 1.8 cm LVIDs: 2.6 cm LVPWs: 2.0 cm LA Diam: 3.6 cm (2.7 - 3.8) Ao Diam: 3.2 cm (2.0 - 3.7) AV Cusp: 1.9 cm (1.5 - 2.6) MV EXCURSION: 21.518 mm (> 18.000) MV EF SLOPE: 124 mm/s (70 - 150) EPSS: 0.9 cm RAP: 15.00 mmHg RVSP: 41.59 mmHg FINDINGS -------- Sinus rhythm. This was a technically adequate study. The left ventricular size is normal. There is moderate concentric left ventricular hypertrophy. O verall left ventricular systolic function is normal with, an EF between 60 - 65 %. The right ventricle is mildly enlarged. The left atrium is normal in size. The right atrium is normal in size. Interatrial and interventricular septum intact. The aortic valve is trileaflet, and appears structurally normal. No aortic stenosis or regurgitation. There is trace mitral regurgitation. Mild tricuspid regurgitation present. There is mild pulmonary hypertension. The right ventricular systolic pressure, as measured by Doppler, is 41.59mmHg. Trace/mild (physiologic) pulmonic regurgitation. The aortic root size is normal. The inferior vena cava is dilated with no significant inspiratory collapse which is consistent estima oumar right atrial pressure of >15 mmHg. There is no pericardial effusion. CONCLUSIONS -------- 1. The left ventricular size is normal. 2. There is moderate concentric left ventricular hypertrophy. 3. Overall left ventricular systolic function is normal with, an EF between 60 - 65 %. 4. The right ventricle is mildly enlarged. 5. The aortic valve is trileaflet, and appears structurally normal. No aortic stenosis or regurgitati on. 6. There is trace mitral regurgitation. 7. Mild tricuspid regurgitation present. 8. There is mild pulmonary hypertension. 9. The right ventricular systolic pressure, as measured by Doppler, is 41.59mmHg. 10. Trace/mild (physiologic) pulmonic regurgitation. 11. The inferior vena cava is dilated with no significant inspiratory collapse which is consistent es timated right atrial pressure of >15 mmHg. 12. There is no pericardial effusion. SYSTEMS DEVELOPMENT CONSULTANT: Chrissie Pride RDCS
--- NOTE | 2020-05-31 12:58 | XR ---
EXAMINATION TYPE: XR cervical spine comp DATE OF EXAM: 05/31/2020 TECHNIQUE: Frontal, lateral, oblique, and open mouth view of the cervical spine are obtained. HISTORY: fall, neck pain COMPARISON: None FINDINGS: The cervical spine is visualized in its entirety from C1 thru the top of T1 level, it is s traightened in alignment without evidence of acute fracture or dislocation. Slight grade 1 retrolist hesis C5 on C6. The pre-vertebral soft tissue appears within normal limits. The C1-C2 articulation i s within normal limits on the open mouth view. Vertebral body heights are maintained. Mild to modera te disc space narrowing and spurring C5-C6 level. Suboptimal evaluation of C7-T1 level without dedica oumar swimmer's view. The oblique images are within normal limits. Overlie soft tissue is unremarkable. IMPRESSION: As above.
--- NOTE | 2020-05-31 13:04 | P.HPIM ---
History of Present Illness H&P Date: 05/31/20 HISTORY OF PRESENT ILLNESS This is a 55-year-old female patient of Dr. Valencia and Dr. TAINA Daniel with past medical history of chronic diastolic heart failure, COPD, mild persistent asthma, hypertension, hyperlipidemia, coronary artery disease, morbid obesity, active tobacco use and dependence, gastroesophageal reflux disease. March 2019, patient had a heart catheterization that showed a subtotal occlusion or probable total occlusion of the RCA with good collaterals with recommendations for medical management. Echocardiogram revealed EF of 60-65%. Patient has had ongoing problems with difficulty breathing for the past 6 weeks and has undergone treatment with antibiotics and steroids in outpatient setting. COVID- 19 testing was negative approximately 6 weeks ago. She complains of cough with yellow sputum production. She complains of wheezing. She has been using a nebulizer. She denies having any fever or chills. She also complains of her hearing decreased. She also states she had a fall couple weeks ago she tripped on the rug. She hit the front of her face at the time. Patient complains of migraine headaches. Patient also complains of chest pain starting a week ago but not very bad today. She had a little chest pain yesterday. Pain is in the midsternal area and nonradiating. Patient came into [facility] emergency center for evaluation. She was afebrile, heart rate 98, blood pressure 04/03/1962, pulse ox 86% on room air. EKG was a sinus rhythm. WBC 12.9, hemoglobin 14.3, platelet count 408. Sodium 138, potassium 4.2, chloride 89, CO2 39, BUN 48 creatinine 0.97. Blood sugar 132. Lactic acid 1.Lactic acid 1.7. Liver function tests normal. Troponin 0.045. COVID-19 not detected. D-dimer 0.56. Chest x-ray revealed s mall bibasilar opacities, favor atelectasis.Patient admitted to the cardiac stepdown unit and consults in place for Dr. Penny and Dr. Castanon. REVIEW OF SYSTEMS Constitutional: No fever, no chills, no night sweats. No weight change. No weakness, fatigue or lethargy. No daytime sleepiness. EENT: No headache. No blurred vision or double vision, no loss of vision. No loss of Hearing, no ringing in the ears, no dizziness. No nasal drainage or congestion. No epistaxis. No sore throat. Lungs: Reports shortness of breath, Reports cough, Reports sputum production. Reports wheezing. Cardiovascular: No chest pain, no lower extremity edema. No palpitations. No paroxysmal nocturnal dyspnea. No orthopnea. No lightheadedness or dizziness. No syncopal episodes. Abdominal: No abdominal pain. No nausea, vomiting. No diarrhea. No constipation. No bloody or tarry stools.. No loss of appetite. Genitourinary: No dysuria, increased frequency, urgency. No urinary retention. Musculoskeletal: No myalgias. No muscle weakness, no gait dysfunction, no frequent falls. No back pain. Reports neck pain. Integumentary: Reports wound, no lesions. No rash or pruritus. No unusual bruising. No change in hair or nails. Neurologic: No aphasia. No facial droop. No change in mentation. No head injury. No headache. No paralysis. No paresthesia. Psychiatric: No depression. No anxiety. No mood swings. Endocrine: No abnormal blood sugars. No weight change. No excessive sweating or thirst. No cold intolerance. SOCIAL HISTORY Patient is a smoker since she was 13 years of age up to 1+ ppd and recently cut back to 3 cigarettes per day. No alcohol use or abuse, no illicit drug use. She has a nebulizer at home. No oxygen, no CPAP. FAMILY HISTORY Father is and patient had no contact with her father. Mother is alive at age 73 with history of COPD, diabetes, chronic kidney disease, dementia. No known coronary artery disease. Patient's 1 brother with no major medical problems. She has one sister with ADHD. Patient has one son with ADD and one daughter with asthma. PHYSICAL EXAMINATION Gen: This is morbidly obese 55-year-old female. She is resting in a chair in the ER and appears to be comfortable at rest. HEENT: Head is atraumatic, normocephalic. Pupils equal, round. Sclerae is anicteric. NECK: Supple. No JVD. No lymphadenopathy. No thyromegaly. LUNGS: diminished in the bases with scattered rhonchi. No intercostal retractions. HEART: Regular rate and rhythm. No murmur. ABDOMEN: Morbidly obese. Soft. Bowel sounds are present. No masses. No tender ness. EXTREMITIES: No pedal edema. No calf tenderness.healing wound to the right hip. No active bleeding. NEUROLOGICAL: Patient is awake, alert and oriented x3. Cranial nerves 2 through 12 are grossly intact. ASSESSMENT AND PLAN 1. Acute hypoxic respiratory failure secondary to a combination of acute diastolic heart failure and acute exacerbation of COPD, possible bilateral lower lobe pneumonia, gram-negative pneumonia. Consult with pulmonary medicine and cardiology. Continue DuoNeb treatments 4 times daily and every 4 hours as needed, continue Pulmicort 0.5 mg twice daily, Solu-Medrol 60 mg IV every 6 hours, Levaquin 750 mg IV piggyback daily, Mucinex 1200 mg twice daily, continue Lasix 40 mg IV every 12 hours, monitor I&O and daily weights, Zaroxolyn 5 mg daily. 2. Hypertension. Continue losartan 25 mg daily, Lopressor 50 mg twice daily, Inderal 60 mg at bedtime. 3. Hyperlipidemia. Continue Lipitor 40 mg at bedtime. 4. History of coronary artery disease. Continue aspirin 81 mg daily, Lipitor 40 mg at bedtime, Plavix 75 mg daily, Lopressor. 5. Active tobacco use and dependence. Nicotine patch. 6. Recent fall. X-ray of the cervical spine ordered. 7. Loss of hearing. Patient may require follow-up with ENT outpatient. 8. Suspect obstructive sleep apnea. Patient will be scheduled outpatient sleep study. 9. Gastroesophageal reflux disease, GI prophylaxis. Protonix. 10. DVT prophylaxis. Heparin subcu. Patient will be admitted to the hospital for a minimum of 2 night stay. DISCHARGE PLAN Home. Impression and plan of care have been directed as dictated by the signing physician. Megan Rico nurse practitioner acting as scribe for signing physician. Past Medical History Past Medical History: Asthma, Coronary Artery Disease (CAD), COPD, GERD/Reflux, Hyperlipidemia, Hypertension, Myocardial Infarction ([place]), Osteoarthritis (OA), Pneumonia, Skin Disorder Additional Past Medical History / Comment(s): Chronic bronchitis, arthritis in back/bilateral knees and hips, migraines, bilateral carpal tunnel syndrome, anemia, UTIs, urine stress incontinence, chronic lower leg/ankle edema, eczema Last Myocardial Infarction Date:: Mar 2019 History of Any Multi-Drug Resistant Organisms: MRSA Date of last positivie culture/infection: 07/2018 MDRO Source:: left leg Past Surgical History: Bladder Surgery, Heart Catheterization, Joint Replacement Additional Past Surgical History / Comment(s): 10/2019 total R hip, 12/2019 I&D R thigh incision, monarch procedure, genital wart removal. Past Anesthesia/Blood Transfusion Reactions: No Reported Reaction Smoking Status: Current every day smoker - Past Family History Father Family Medical History: Cancer Additional Family Medical History / Comment(s): Father is . Patient had no contact with her father. Mother Family Medical History: COPD, Diabetes Mellitus, Renal Disease Additional Family Medical History / Comment(s): Mother is alive at age 74 Brother(s) Additional Family Medical History / Comment(s): Patient has 1 brother with no major medical problems. Patient's 1 sister with ADD. Patient has 1 son with ADD and one daughter with asthma. Medications and Allergies Home Medications Medication Instructions Recorded Confirmed Type Ipratropium/Albuterol Sulfate 1 puff INHALATION RT-Q4H PRN 04/01/19 05/30/20 History [Combivent Respimat Inhaler] Potassium Chloride ER [K-Dur 20] 20 meq PO BID 04/01/19 05/30/20 History oxyCODONE-APAP 7.5-325MG [Percocet 1 tab PO Q6HR PRN 10/06/19 05/30/20 History 7.5-325 mg] Clopidogrel [Plavix] 75 mg PO DAILY 10/08/19 05/30/20 History Cholecalciferol [Vitamin D3 (25 6,000 unit PO DAILY 12/31/19 05/30/20 History Mcg = 1000 Iu)] Metoprolol Tartrate [Lopressor] 50 mg PO BID 12/31/19 05/30/20 History Torsemide [Demadex] 20 mg PO BID 12/31/19 05/30/20 History Albuterol Nebulized [Ventolin 2.5 mg INHALATION RT-TID PRN 05/30/20 05/30/20 History Nebulized] Ascorbic Acid [Vitamin C] 1,000 mg PO DAILY 05/30/20 05/30/20 History Aspirin 81 mg PO DAILY 05/30/20 05/30/20 History Atorvastatin Calcium [Lipitor] 40 mg PO HS 05/30/20 05/30/20 History Budesonide [Pulmicort] 0.5 mg INHALATION RT-BID PRN 05/30/20 05/30/20 History Ferrous Sulfate [Feosol] 325 mg PO DAILY 05/30/20 05/30/20 History Losartan Potassium 25 mg PO HS 05/30/20 05/30/20 History Propranolol HCl [Propranolol HCl 60 mg PO HS 05/30/20 05/30/20 History ER] metOLazone [Zaroxolyn] 5 mg PO DAILY 05/30/20 05/30/20 History Allergies Allergy/AdvReac Type Severity Reaction Status Date / Time sulfamethoxazole Allergy BURNING ON Verified 05/30/20 20:18 [From Bactrim] LIPS Physical Exam Vitals: Vital Signs Temp Pulse Pulse Resp BP BP Pulse Ox 05/31/20 08:22 92 05/31/20 08:00 90 05/31/20 04:05 98.2 F 92 20 137/79 92 L 05/31/20 01:28 98.2 F 90 22 118/92 92 L 05/30/20 21:30 98.5 F 80 20 131/69 92 L 05/30/20 20:08 82 20 113/55 94 L 05/30/20 19:38 98.1 F 77 22 105/46 94 L 05/30/20 19:14 84 05/30/20 19:07 84 05/30/20 18:42 79 24 105/69 92 L 05/30/20 18:10 98.2 F 98 22 124/65 86 L Intake and Output 05/30/20 05/31/20 05/31/20 22:59 06:59 14:59 Other: Voiding Method Toilet # Voids 1 Weight 136.078 kg 136.078 kg Results CBC & Chem 7: 05/30/20 19:30 05/30/20 18:37 Labs: Abnormal Lab Results - Last 24 Hours (Table) 05/30/20 05/30/20 05/30/20 Range/Units 18:37 18:37 19:30 WBC 12.9 H (3.8-10.6) k/uL Hct 46.1 H (34.0-46.0) % RDW 21.7 H (11.5-15.5) % Neutrophils # 9.4 H (1.3-7.7) k/uL Chloride 89 L (98-107) mmol/L Carbon Dioxide 39 H (22-30) mmol/L BUN 48 H (7-17) mg/dL Glucose 132 H (74-99) mg/dL Troponin I 0.045 H* (0.000-0.034) ng/mL Thrombosis Risk Factor Assmnt - Choose All That Apply Any of the Below Risk Factors Present?: Yes Each Factor Represents 1 point: Abnormal pulmonary function (COPD), Obesity (BMI >25) Other Risk Factors: No Other congenital or acquired thrombophilia - If yes, enter type in comment: No Thrombosis Risk Factor Assessment Total Risk Factor Score: 2 Thrombosis Risk Factor Assessment Level: Low Risk
[2020-05-31 13:22] LABS: Glucose,Whole Blood 226 mg/dL (75-99)
[2020-05-31] MEDS: INSULIN ASPART (NovoLOG) 100 UNIT/ML VIAL SQ SCH ×3 (13:36→20:17)
--- NOTE | 2020-05-31 15:37 | P.CNPUL ---
History of Present Illness Consult date: 05/31/20 Reason for consult: dyspnea, cough, COPD, hypoxemia Chief complaint: Shortness of breath and cough progressive for last several weeks History of present illness: This is a morbidly obese 54-year-old female with extensive history of smoking and nicotine use came into the hospital with progressive increased shortness of breath and cough, denies any hemoptysis respiratory status continued to get worse, patient has prior history of dyslipidemia hypertension hypertensive cardiovascular disease smoking along with GERD, patient has coronary artery disease with good ejection fraction 60-65%, due to progressive shortness of breath decided to come into the hospital, computed tomography scan revealed cardiomegaly with prominent scarring at the bases possible pneumonia cannot be excluded patient currently being treated with bronchodilators and IV steroids and broad-spectrum antibiotics with continuation of home medication sputum samples being obtained Review of Systems All systems: negative Past Medical History Past Medical History: Asthma, Coronary Artery Disease (CAD), COPD, GERD/Reflux, Hyperlipidemia, Hypertension, Myocardial Infarction (CT), Osteoarthritis (OA), Pneumonia, Skin Disorder Additional Past Medical History / Comment(s): Chronic bronchitis, arthritis in back/bilateral knees and hips, migraines, bilateral carpal tunnel syndrome, anemia, UTIs, urine stress incontinence, chronic lower leg/ankle edema, eczema Last Myocardial Infarction Date:: Mar 2019 History of Any Multi-Drug Resistant Organisms: MRSA Date of last positivie culture/infection: 07/2018 MDRO Source:: left leg Past Surgical History: Bladder Surgery, Heart Catheterization, Joint Replacement Additional Past Surgical History / Comment(s): 10/2019 total R hip, 12/2019 I&D R thigh incision, monarch procedure, genital wart removal. Past Anesthesia/Blood Transfusion Reactions: No Reported Reaction Smoking Status: Current every day smoker - Past Family History Father Family Medical History: Cancer Additional Family Medical History / Comment(s): Father is . Patient had no contact with her father. Mother Family Medical History: COPD, Diabetes Mellitus, Renal Disease Additional Family Medical History / Comment(s): Mother is alive at age 74 Brother(s) Additional Family Medical History / Comment(s): Patient has 1 brother with no major medical problems. Patient's 1 sister with ADD. Patient has 1 son with ADD and one daughter with asthma. Medications and Allergies Home Medications Medication Instructions Recorded Confirmed Type Ipratropium/Albuterol Sulfate 1 puff INHALATION RT-Q4H PRN 04/01/19 05/30/20 History [Combivent Respimat Inhaler] Potassium Chloride ER [K-Dur 20] 20 meq PO BID 04/01/19 05/30/20 History oxyCODONE-APAP 7.5-325MG [Percocet 1 tab PO Q6HR PRN 10/06/19 05/30/20 History 7.5-325 mg] Clopidogrel [Plavix] 75 mg PO DAILY 10/08/19 05/30/20 History Cholecalciferol [Vitamin D3 (25 6,000 unit PO DAILY 12/31/19 05/30/20 History Mcg = 1000 Iu)] Metoprolol Tartrate [Lopressor] 50 mg PO BID 12/31/19 05/30/20 History Torsemide [Demadex] 20 mg PO BID 12/31/19 05/30/20 History Albuterol Nebulized [Ventolin 2.5 mg INHALATION RT-TID PRN 05/30/20 05/30/20 History Nebulized] Ascorbic Acid [Vitamin C] 1,000 mg PO DAILY 05/30/20 05/30/20 History Aspirin 81 mg PO DAILY 05/30/20 05/30/20 History Atorvastatin Calcium [Lipitor] 40 mg PO HS 05/30/20 05/30/20 History Budesonide [Pulmicort] 0.5 mg INHALATION RT-BID PRN 05/30/20 05/30/20 History Ferrous Sulfate [Feosol] 325 mg PO DAILY 05/30/20 05/30/20 History Losartan Potassium 25 mg PO HS 05/30/20 05/30/20 History Propranolol HCl [Propranolol HCl 60 mg PO HS 05/30/20 05/30/20 History ER] metOLazone [Zaroxolyn] 5 mg PO DAILY 05/30/20 05/30/20 History Allergies Allergy/AdvReac Type Severity Reaction Status Date / Time sulfamethoxazole Allergy BURNING ON Verified 05/30/20 20:18 [From Bactrim] LIPS Physical Exam Vitals: Vital Signs Temp Pulse Pulse Resp BP BP Pulse Ox 05/31/20 14:50 78 18 120/67 92 L 05/31/20 14:00 20 05/31/20 12:08 99 05/31/20 12:00 98.0 F 98 20 133/80 92 L 05/31/20 11:42 95 05/31/20 08:22 92 05/31/20 08:00 98.2 F 90 98 20 136/81 91 L 05/31/20 04:05 98.2 F 92 20 137/79 92 L 05/31/20 01:28 98.2 F 90 22 118/92 92 L 05/30/20 21:30 98.5 F 80 20 131/69 92 L 05/30/20 20:08 82 20 113/55 94 L 05/30/20 19:38 98.1 F 77 22 105/46 94 L 05/30/20 19:14 84 05/30/20 19:07 84 05/30/20 18:42 79 24 105/69 92 L 05/30/20 18:10 98.2 F 98 22 124/65 86 L Intake and Output 05/31/20 05/31/20 05/31/20 06:59 14:59 22:59 Other: Voiding Method Toilet Toilet # Voids 1 Weight 136.078 kg - Constitutional General appearance: morbidly obese - EENT Eyes: EOMI, PERRLA Ears: bilateral: normal - Neck Neck: normal ROM Carotids: bilateral: upstroke normal Thyroid: bilateral: normal size - Respiratory Respiratory: bilateral: diminished, wheezing - Cardiovascular Rhythm: regular Heart sounds: normal: S1, S2 - Gastrointestinal General gastrointestinal: decreased bowel sounds, normal bowel sounds, soft - Integumentary Integumentary: decreased turgor - Neurologic Neurologic: CNII-XII intact - Musculoskeletal Musculoskeletal: gait normal, generalized weakness, strength equal bilaterally - Psychiatric Psychiatric: A&O x's 3, appropriate affect, intact judgment & insight Results - Laboratory Findings CBC and BMP: 05/30/20 19:30 05/30/20 18:37 PT/INR, D-dimer PT 11.6 sec (9.0-12.0) 05/30/20 19:30 INR 1.1 (<1.2) 05/30/20 19:30 D-Dimer 0.56 mg/L FEU (<0.60) 05/30/20 19:30 Abnormal lab findings: Abnormal Labs 05/30/20 05/30/20 05/30/20 18:37 18:37 19:30 WBC 12.9 H Hct 46.1 H RDW 21.7 H Neutrophils # 9.4 H Chloride 89 L Carbon Dioxide 39 H BUN 48 H Glucose 132 H POC Glucose (mg/dL) Troponin I 0.045 H* 05/31/20 13:21 WBC Hct RDW Neutrophils # Chloride Carbon Dioxide BUN Glucose POC Glucose (mg/dL) 226 H Troponin I - Diagnostic Findings Chest x-ray: report reviewed, image reviewed CT scan - chest: report reviewed, image reviewed (Finding as noted above) Assessment and Plan Assessment: Acute hypoxic respiratory failure Right middle lobe and lower lobe pneumonia Acute COPD exacerbation Coronary artery disease Morbid obesity Likely sleep disorder breathing and sleep apnea Plan: Would recommend to continue broad-spectrum antibiotics IV steroids along with bronchodilator and supportive care follow up on his sputum studies further recommendations pending plan of care as per clinical response of the patient Time with Patient: Greater than 30
[2020-05-31 16:40] LABS: Glucose,Whole Blood 255 mg/dL (75-99)
[2020-05-31] MEDS: NICOTINE 7MG/24HR PATCH TRANSDERM SCH (17:48)
[2020-05-31] MEDS: HEPARIN SODIUM,PORCINE 5,000 UNIT/ML 1 ML VIAL SQ SCH ×2 (17:48→22:49)
[2020-05-31] MEDS: ASPIRIN-ACET-CAFF 250-250-65MG 1 EACH TAB PO PRN (18:37)
[2020-05-31 20:04] LABS: Glucose,Whole Blood 223 mg/dL (75-99)
[2020-05-31] MEDS: LEVOFLOXACIN 750MG-D5W PMX 750 MG in DEXTROSE/WATER 1 150ML.BAG IVPB SCH (20:14)
[2020-05-31] MEDS: ATORVASTATIN 40 MG TAB PO SCH (20:16)
[2020-05-31] MEDS: LOSARTAN 25 MG TAB PO SCH (20:17)
[2020-05-31] MEDS: PROPRANOLOL LA 60 MG CAP.SA.24H PO SCH (20:26)
[2020-06-01] MEDS: ASPIRIN-ACET-CAFF 250-250-65MG 1 EACH TAB PO PRN (05:03)
[2020-06-01 06:24] LABS: Glucose,Whole Blood 187 mg/dL (75-99)
[2020-06-01] MEDS: INSULIN ASPART (NovoLOG) 100 UNIT/ML VIAL SQ SCH ×4 (06:25→20:40)
[2020-06-01] MEDS: PANTOPRAZOLE 40 MG TABLET PO SCH (06:25)
[2020-06-01] MEDS: methylPREDNISolone SOD SUCCI 125 MG/2 ML VIAL IV SCH ×4 (06:26→23:23)
[2020-06-01] MEDS: IPRATROPIUM-ALBUTEROL 3 ML NEB INHALATION SCH ×4 (08:52→20:43)
[2020-06-01] MEDS: BUDESONIDE 0.5 MG/2 ML NEBU INHALATION SCH ×2 (08:52→20:43)
[2020-06-01] MEDS: POTASSIUM CHLORIDE ER 20 MEQ TAB.ER PO SCH ×2 (09:02→20:40)
[2020-06-01] MEDS: guaiFENesin 600 MG TABLET.ER PO SCH ×2 (09:02→20:40)
[2020-06-01] MEDS: ASCORBIC ACID 500 MG TAB PO SCH (09:02)
[2020-06-01] MEDS: FUROSEMIDE 10 MG/ML 4 ML VIAL IV SCH (09:02)
[2020-06-01] MEDS: HEPARIN SODIUM,PORCINE 5,000 UNIT/ML 1 ML VIAL SQ SCH ×3 (09:02→23:23)
[2020-06-01] MEDS: CLOPIDOGREL 75 MG TAB PO SCH (09:02)
[2020-06-01] MEDS: FERROUS SULFATE 325 MG TAB PO SCH (09:02)
[2020-06-01] MEDS: ASPIRIN 81 MG PO SCH (09:03)
[2020-06-01] MEDS: metOLazone 5 MG TAB PO SCH (09:03)
[2020-06-01] MEDS: METOPROLOL TARTRATE 50 MG TAB PO SCH ×2 (09:03→20:40)
[2020-06-01] MEDS: NICOTINE 7MG/24HR PATCH TRANSDERM SCH (09:04)
[2020-06-01] MEDS: CHOLECALCIFEROL 25 MCG (1000 IU) TABLET PO SCH (09:05)
--- NOTE | 2020-06-01 11:25 | P.PN ---
Subjective Progress Note Date: 06/01/20 HISTORY OF PRESENT ILLNESS This is a 55-year-old female patient of Dr. Valencia and Dr. TAINA Daniel with past medical history of chronic diastolic heart failure, COPD, mild persistent ast hma, hypertension, hyperlipidemia, coronary artery disease, morbid obesity, active tobacco use and dependence, gastroesophageal reflux disease. March 2019, patient had a heart catheterization that showed a subtotal occlusion or probable total occlusion of the RCA with good collaterals with recommendations for medical management. Echocardiogram revealed EF of 60-65%. Patient has had ongoing problems with difficulty breathing for the past 6 weeks and has undergone treatment with antibiotics and steroids in outpatient setting. COVID- 19 testing was negative approximately 6 weeks ago. She complains of cough with yellow sputum production. She complains of wheezing. She has been using a nebu lizer. She denies having any fever or chills. She also complains of her hearing decreased. She also states she had a fall couple weeks ago she tripped on the rug. She hit the front of her face at the time. Patient complains of migraine headaches. Patient also complains of chest pain starting a week ago but not very bad today. She had a little chest pain yesterday. Pain is in the midsternal area and nonradiating. Patient came into [facility] emergency [facility] for evaluation. She was afebrile, heart rate 98, blood pressure 04/03/1962, pulse ox 86% on room air. EKG was a sinus rhythm. WBC 12.9, hemoglobin 14.3, platelet count 408. Sodium 138, potassium 4.2, chloride 89, CO2 39, BUN 48 creatinine 0.97. Blood sugar 132. Lactic acid 1.Lactic acid 1.7. Liver function tests normal. Troponin 0.045. COVID-19 not detected. D-dimer 0.56. Chest x-ray revealed small bibasilar opacities, favor atelectasis.Patient admitted to the cardiac stepdown unit and consults in place for Dr. Penny and Dr. Castanon. 06/01: Patient complains of a headache this morning. Her biggest complaint is that she wants a regular diet. She understands that she should be a heart healthy diet and low-sodium and that this could impact the amount of edema and shortness of breath that she experiences. Patient is adamant that she wants a regular diet and thus this will be changed. Repeat troponins were 0.020 0.019. She's been afebrile, heart rate 60, blood pressure 117/56, pulse ox 93% on 5 L nasal cannula. Patient is followed by pulmonary medicine and cardiology. Cardiology has changed IV Lasix to Demadex 40 mg oral daily. Patient is continued on Solu-Medrol 60 mg IV every 6 hours. REVIEW OF SYSTEMS Constitutional: No fever, no chills, no night sweats. No weight change. No weakness, fatigue or lethargy. No daytime sleepiness. EENT: No headache. No blurred vision or double vision, no loss of vision. No loss of Hearing, no ringing in the ears, no dizziness. No nasal drainage or congestion. No epistaxis. No sore throat. Lungs: Reports shortness of breathimproving, Reports cough, Reports sputum production. Reports wheezing. Cardiovascular: No chest pain, no lower extremity edema. No palpitations. No paroxysmal nocturnal dyspnea. No orthopnea. No lightheadedness or dizziness. No syncopal episodes. Abdominal: No abdominal pain. No nausea, vomiting. No diarrhea. No constipation. No bloody or tarry stools.. No loss of appetite. Genitourinary: No dysuria, increased frequency, urgency. No urinary retention. Musculoskeletal: No myalgias. No muscle weakness, no gait dysfunction, no frequent falls. No back pain. Reports neck pain. Integumentary: Reports wound, no lesions. No rash or pruritus. No unusual bruising. No change in hair or nails. Neurologic: No aphasia. No facial droop. No change in mentation. No head injury. No headache. No paralysis. No paresthesia. Psychiatric: No depression. No anxiety. No mood swings. Endocrine: No abnormal blood sugars. No weight change. No excessive sweating or thirst. No cold intolerance. PHYSICAL EXAMINATION Gen: This is morbidly obese 55-year-old female. She is resting in bed and appears to be comfortable at rest. HEENT: Head is atraumatic, normocephalic. Pupils equal, round. Sclerae is anicteric. NECK: Supple. No JVD. No lymphadenopathy. No thyromegaly. LUNGS: diminished in the bases with scattered rhonchi. No intercostal retractions. HEART: Regular rate and rhythm. No murmur. ABDOMEN: Morbidly obese. Soft. Bowel sounds are present. No masses. No tenderness. EXTREMITIES: No pedal edema. No calf tenderness.healing wound to the right hip. No active bleeding. NEUROLOGICAL: Patient is awake, alert and oriented x3. Cranial nerves 2 through 12 are grossly intact. ASSESSMENT AND PLAN 1. Acute hypoxic respiratory failure secondary to a combination of acute diastolic heart failure and acute exacerbation of COPD, possible bilateral lower lobe pneumonia, gram-negative pneumonia. Consult with pulmonary medicine and cardiology. Continue DuoNeb treatments 4 times daily and every 4 hours as needed, continue Pulmicort 0.5 mg twice daily, Solu-Medrol 60 mg IV every 6 hours, Levaquin 750 mg IV piggyback daily, Mucinex 1200 mg twice daily, IV Lasix changed to Demedex 40 mg PO daily, monitor I&O and daily weights, Zaroxolyn 5 mg daily. 2. Hypertension. Continue losartan 25 mg daily, Lopressor 50 mg twice daily, Inderal 60 mg at bedtime. 3. Hyperlipidemia. Continue Lipitor 40 mg at bedtime. 4. History of coronary artery disease. Continue aspirin 81 mg daily, Lipitor 40 mg at bedtime, Plavix 75 mg daily, Lopressor. 5. Active tobacco use and dependence. Nicotine patch. 6. Recent fall. X-ray of the cervical spine ordered. 7. Loss of hearing. Patient may require follow-up with ENT outpatient. 8. Suspect obstructive sleep apnea. Patient will be scheduled outpatient sleep study. 9. Gastroesophageal reflux disease, GI prophylaxis. Protonix. 10. DVT prophylaxis. Heparin subcu. DISCHARGE PLAN Home. Impression and plan of care have been directed as dictated by the signing physician. Megan Rico nurse practitioner acting as scribe for signing physician. Objective - Vital Signs Vital signs: Vital Signs Temp 98.2 F 06/01/20 04:44 Pulse 72 06/01/20 09:10 Resp 19 06/01/20 04:44 BP 117/56 06/01/20 04:44 Pulse Ox 93 L 06/01/20 04:44 Intake & Output 05/31/20 06/01/20 06/01/20 18:59 06:59 18:59 Intake Total 240 Output Total 1250 Balance -1250 240 Weight 136.078 kg Intake: Oral 240 Output: Urine 1250 Other: Voiding Method Toilet External Catheter - Labs CBC & Chem 7: 05/30/20 19:30 05/30/20 18:37 Labs: Abnormal Lab Results - Last 24 Hours (Table) 05/31/20 05/31/20 05/31/20 Range/Units 13:21 16:37 20:02 POC Glucose (mg/dL) 226 H 255 H 223 H (75-99) mg/dL 06/01/20 Range/Units 06:22 POC Glucose (mg/dL) 187 H (75-99) mg/dL Microbiology - Last 24 Hours (Table) 05/30/20 19:38 Blood Culture - Preliminary Blood No Growth after 24 hours
--- NOTE | 2020-06-01 11:47 | P.CRDCN ---
History of Present Illness History of present illness: HISTORY OF PRESENTING ILLNESS This is a pleasant 55-year-old female past medical history significant for asthma, COPD, hypertension, dyslpidemia, coronary artery disease, avascular necrosis, morbid obesity and chronic nicotine dependence. She follows in the office with Dr. Syed. We have been asked to see in consultation for elevated troponin. She presented to the hospital with a recent worsening shortness of breath and cough. She states she was recently diagnosed and treated for fungal pneumonia and bronchitis but doesn't feel like she has improved much in the last 2 months. She also feels a heaviness in her chest when she trying to deep breath and cough. In March 2019 she had a NSTEMI, catheterization revealing total occlusion of the RCA in the mid portion. Otherwise no significant disease. echocardiogram obtained on this admission reveals preserved LV systolic function with ejection fraction 60-65% with no significant wall motion abnormalities noted. DIAGNOSTICS EKG reveals sinus mechanism with right bundle branch block pattern, biatrial enlargement and T-wave inversion inferiorly. Chest xray small basilar opacities. Chest CT mild/moderate bilateral lower lung scarring, cannot exclude consolidation in the right lower lobe. Laboratory reviewed, WBC 12.9, hemoglobin 14.3, platelets 408, d-dimer 0.56, sodium 138, potassium 4.2, creatinine 0.97,troponin 0.045, 0.02, 0.0 19 and proBNP 795. Current cardiac medications include aspirin 81 mg daily, Plavix 75 mg daily, Lopressor 50 mg twice a day, atorvastatin 40 mg daily, torsemide 20 mg twice a day, losartan 25 mg daily, propanolol 60 mg daily and Zaroxolyn 5 mg daily. REVIEW OF SYSTEMS At the time of my exam: CONSTITUTIONAL: Denies fever or chills. CARDIOVASCULAR: Denies chest pain, shortness of breath, orthopnea, PND or palpitations. RESPIRATORY: Denies cough. GASTROINTESTINAL: Denies abdominal pain, diarrhea, constipation, nausea or vomiting. MUSCULOSKELETAL: Denies myalgias. NEUROLOGIC: Denies numbness, tingling, headacbe or weakness. ENDOCRINE: Denies fatigue, weight change, polydipsia or polyurina. GENITOURINARY: Denies burning, hematuria or urgency with micturation. HEMATOLOGIC: Denies history of anemia or bleeding. PHYSICAL EXAMINATION Blood pressure 117/56 heart rate 72 afebrile and maintaining oxygen saturation on nasal cannula. CONSTITUTIONAL: No apparent distress. Morbidly obese. HEENT: Head is normocephalic. Pupils are equal, round. Sclerae anicteric. Mucous membranes of the mouth are moist. No JVD. No carotid bruit. CHEST EXAMINATION: Expiratory wheeze. No rales or rhonchi. No chest wall tenderness is noted on palpation or with deep breathing. HEART EXAMINATION: Regular rate and rhythm. S1, S2 heard. No murmurs, gallops or rub. ABDOMEN: Soft, nontender. Positive bowel sounds. EXTREMITIES: 2+ peripheral pulses, bilateral 1+ pitting lower extremity edema a nd no calf tenderness. NEUROLOGIC EXAMINATION: Patient is awake, alert and oriented x3. ASSESSMENT Hypoxic respiratory failure Pneumonia Acute exacerbation of COPD Troponin leak of unclear significance, not related to myocardial injury Hypertension Dyslipidemia Coronary artery disease Avascular necrosis Chronic nicotine dependence Morbid obesity, BMI 49 PLAN Discontinue IV diuretics and resume home dose of demadex, but daily instead of BID in just one dose. As an outpatient we will make further diuretic adjustments and consider adding aldactone and adjusting zaroxolyn to every other day. Ongoing treatment of respiratory illness. We will follow along as needed, follow up with Dr. Syed upon discharge. Thank you kindly for this consultation. Nurse Practitioner note has been reviewed, I agree with a documented findings and plan of care. Patient was seen and examined. Past Medical History Past Medical History: Asthma, Coronary Artery Disease (CAD), COPD, GERD/Reflux, Hyperlipidemia, Hypertension, Myocardial Infarction (NE), Osteoarthritis (OA), Pneumonia, Skin Disorder Additional Past Medical History / Comment(s): Chronic bronchitis, arthritis in back/bilateral knees and hips, migraines, bilateral carpal tunnel syndrome, anemia, UTIs, urine stress incontinence, chronic lower leg/ankle edema, eczema Last Myocardial Infarction Date:: Mar 2019 History of Any Multi-Drug Resistant Organisms: MRSA Date of last positivie culture/infection: 07/2018 MDRO Source:: left leg Past Surgical History: Bladder Surgery, Heart Catheterization, Joint Replacement Additional Past Surgical History / Comment(s): 10/2019 total R hip, 12/2019 I&D R thigh incision, monarch procedure, genital wart removal. Past Anesthesia/Blood Transfusion Reactions: No Reported Reaction Smoking Status: Current every day smoker - Past Family History Father Family Medical History: Cancer Additional Family Medical History / Comment(s): Father is . Patient had no contact with her father. Mother Family Medical History: COPD, Diabetes Mellitus, Renal Disease Additional Family Medical History / Comment(s): Mother is alive at age 74 Brother(s) Additional Family Medical History / Comment(s): Patient has 1 brother with no major medical problems. Patient's 1 sister with ADD. Patient has 1 son with ADD and one daughter with asthma. Medications and Allergies Home Medications Medication Instructions Recorded Confirmed Type Ipratropium/Albuterol Sulfate 1 puff INHALATION RT-Q4H PRN 04/01/19 05/30/20 History [Combivent Respimat Inhaler] Potassium Chloride ER [K-Dur 20] 20 meq PO BID 04/01/19 05/30/20 History oxyCODONE-APAP 7.5-325MG [Percocet 1 tab PO Q6HR PRN 10/06/19 05/30/20 History 7.5-325 mg] Clopidogrel [Plavix] 75 mg PO DAILY 10/08/19 05/30/20 History Cholecalciferol [Vitamin D3 (25 6,000 unit PO DAILY 12/31/19 05/30/20 History Mcg = 1000 Iu)] Metoprolol Tartrate [Lopressor] 50 mg PO BID 12/31/19 05/30/20 History Torsemide [Demadex] 20 mg PO BID 12/31/19 05/30/20 History Albuterol Nebulized [Ventolin 2.5 mg INHALATION RT-TID PRN 05/30/20 05/30/20 History Nebulized] Ascorbic Acid [Vitamin C] 1,000 mg PO DAILY 05/30/20 05/30/20 History Aspirin 81 mg PO DAILY 05/30/20 05/30/20 History Atorvastatin Calcium [Lipitor] 40 mg PO HS 05/30/20 05/30/20 History Budesonide [Pulmicort] 0.5 mg INHALATION RT-BID PRN 05/30/20 05/30/20 History Ferrous Sulfate [Feosol] 325 mg PO DAILY 05/30/20 05/30/20 History Losartan Potassium 25 mg PO HS 05/30/20 05/30/20 History Propranolol HCl [Propranolol HCl 60 mg PO HS 05/30/20 05/30/20 History ER] metOLazone [Zaroxolyn] 5 mg PO DAILY 05/30/20 05/30/20 History Allergies Allergy/AdvReac Type Severity Reaction Status Date / Time sulfamethoxazole Allergy BURNING ON Verified 05/30/20 20:18 [From Bactrim] LIPS Physical Exam Vitals: Vital Signs Temp Pulse Pulse Resp BP Pulse Ox 06/01/20 04:44 98.2 F 71 19 117/56 93 L 05/31/20 22:50 98 F 71 19 122/59 93 L 05/31/20 20:15 98.1 F 82 20 123/62 93 L 05/31/20 19:32 104 H 05/31/20 19:23 100 05/31/20 16:19 88 05/31/20 16:10 80 05/31/20 16:00 82 18 137/76 94 L 05/31/20 14:50 78 18 120/67 92 L 05/31/20 14:00 20 05/31/20 12:08 99 05/31/20 12:00 98.0 F 98 20 133/80 92 L 05/31/20 11:42 95 05/31/20 08:22 92 Intake and Output 05/31/20 06/01/20 06/01/20 22:59 06:59 14:59 Output Total 1250 Balance -1250 Output: Urine 1250 Other: Voiding Method External Catheter External Catheter Results 05/30/20 19:30 05/30/20 18:37 Cardiac Enzymes 05/31/20 05/31/20 Range/Units 10:03 12:16 Troponin I 0.020 0.019 (0.000-0.034) ng/mL Current Medications Generic Name Dose Route Start Last Admin Trade Name Freq PRN Reason Stop Dose Admin Acetaminophen/Aspirin/Caffeine 1 each 05/31/20 16:46 06/01/20 05:03 [id number] 1 Each Tab PO 1 each Q6H PRN Administration Headache Albuterol/Ipratropium 3 ml 05/31/20 08:00 05/31/20 19:20 Ipratropium-Albuterol 3 Ml Neb INHALATION 3 ml RT-QID SAMARA Administration Albuterol/Ipratropium 3 ml 05/30/20 20:56 Ipratropium-Albuterol 3 Ml Neb INHALATION RT-Q4H PRN Shortness Of Breath Or Wheezing Ascorbic Acid 1,000 mg 06/01/20 09:00 Ascorbic Acid 500 Mg Tab PO DAILY [facility] Aspirin 81 mg 06/01/20 09:00 Aspirin 81 Mg PO DAILY [facility] Atorvastatin Calcium 40 mg 05/31/20 21:00 05/31/20 20:16 Atorvastatin 40 Mg Tab PO 40 mg HS SAMARA Administration Budesonide 0.5 mg 05/31/20 09:30 05/31/20 19:20 Budesonide 0.5 Mg/2 Ml Nebu INHALATION 0.5 mg RT-BID SAMARA Administration Cholecalciferol 150 mcg 06/01/20 09:00 Cholecalciferol 25 Mcg (1000 Iu) Tablet PO DAILY [facility] Clopidogrel Bisulfate 75 mg 05/31/20 09:30 05/31/20 11:28 Clopidogrel 75 Mg Tab PO 75 mg DAILY [facility] Administration Ferrous Sulfate 325 mg 06/01/20 09:00 Ferrous Sulfate 325 Mg Tab PO DAILY [facility] Furosemide 40 mg 05/31/20 09:30 05/31/20 20:16 Furosemide 10 Mg/Ml 4 Ml Vial IV 40 mg Q12HR [facility]ARA Administration Guaifenesin 1,200 mg 05/31/20 09:30 05/31/20 20:17 Guaifenesin 600 Mg Tablet.Er PO 1,200 mg Q12HR SAMARA Administration Heparin Sodium (Porcine) 5,000 unit 05/31/20 16:00 05/31/20 22:49 Heparin Sodium,Porcine 5,000 Unit/Ml 1 Ml Vial SQ 5,000 unit Q8HR [facility]ARA Administration Levofloxacin 750 mg/ IV 150 mls @ 100 mls/hr 05/31/20 21:00 05/31/20 20:14 Solution IVPB 100 mls/hr Q24H [facility]ARA Administration Insulin Aspart 0 unit 05/31/20 12:30 06/01/20 06:25 Insulin Aspart (Novolog) 100 Unit/Ml Vial SQ 5 unit ACHS SAMARA Administration Protocol Losartan Potassium 25 mg 05/31/20 21:00 05/31/20 20:17 Losartan 25 Mg Tab PO 25 mg HS SAMARA Administration Methylprednisolone Sodium Succinate 60 mg 05/31/20 00:00 06/01/20 06:26 Methylprednisolone Sod Succi 125 Mg/2 Ml Vial IV 60 mg Q6HR [facility]ARA Administration Metolazone 5 mg 05/31/20 09:30 05/31/20 11:29 Metolazone 5 Mg Tab PO 5 mg DAILY [facility] Administration Metoprolol Tartrate 50 mg 05/31/20 09:30 05/31/20 20:17 Metoprolol Tartrate 50 Mg Tab PO 50 mg BID [facility]ARA Administration Nicotine 1 patch 05/31/20 13:00 05/31/20 17:48 Nicotine 7mg/24hr Patch TRANSDERM Not Given DAILY [facility] Oxycodone/Acetaminophen 1 each 05/31/20 09:17 05/31/20 18:37 Oxycodone-Apap 7.5-325mg 1 Each Tab PO 1 each Q6HR PRN Administration Pain Pantoprazole Sodium 40 mg 06/01/20 07:30 06/01/20 06:25 Pantoprazole 40 Mg Tablet PO 40 mg [id number] SAMARA Administration Potassium Chloride 20 meq 05/31/20 09:30 05/31/20 20:18 Potassium Chloride Er 20 Meq Tab.Er PO 20 meq BID [facility]ARA Administration Propranolol HCl 60 mg 05/31/20 21:00 05/31/20 20:26 Propranolol La 60 Mg Cap.Sa.24h PO 60 mg HS SAMARA Administration Intake and Output 05/31/20 06/01/20 06/01/20 22:59 06:59 14:59 Output Total 1250 Balance -1250 Output: Urine 1250 Other: Voiding Method External Catheter External Catheter 05/30/20 19:30 05/30/20 18:37
[2020-06-01 11:53] LABS: Glucose,Whole Blood 261 mg/dL (75-99)
[2020-06-01] MEDS: INSULIN DETEMIR (LEVEMIR) 100 UNIT/ML SYR SQ SCH (12:23)
[2020-06-01] MEDS: TORSEMIDE 20 MG TAB PO SCH (12:24)
--- NOTE | 2020-06-01 15:37 | P.PN ---
Subjective Progress Note Date: 06/01/20 Principal diagnosis: Acute hypoxic respiratory failure Right middle lobe and lower lobe pneumonia Acute COPD exacerbation Coronary artery disease Morbid obesity Likely sleep disorder breathing and sleep apnea 06/01/2020, patient seen eval examined during the rounds labs reviewed medications reviewed care plan discussed, respiratory status slightly better but still have ongoing symptoms, currently she is on 4 L oxygen, her blood cultures have been negative so far, This is a morbidly obese 54-year-old female with extensive history of smoking and nicotine use came into the hospital with progressive increased shortness of breath and cough, denies any hemoptysis respiratory status continued to get worse, patient has prior history of dyslipidemia hypertension hypertensive cardiovascular disease smoking along with GERD, patient has coronary artery disease with good ejection fraction 60-65%, due to progressive shortness of breath decided to come into the hospital, computed tomography scan revealed cardiomegaly with prominent scarring at the bases possible pneumonia cannot be excluded patient currently being treated with bronchodilators and IV steroids and broad-spectrum antibiotics with continuation of home medication sputum samples being obtained Objective - Vital Signs Vital signs: Vital Signs Temp 98.2 F 06/01/20 04:44 Pulse 62 06/01/20 14:00 Resp 20 06/01/20 14:00 BP 121/68 06/01/20 12:00 Pulse Ox 92 L 06/01/20 12:00 Intake & Output 05/31/20 06/01/20 06/01/20 18:59 06:59 18:59 Intake Total 460 Output Total 1250 Balance -1250 460 Weight 136.078 kg Intake: Oral 460 Output: Urine 1250 Other: Voiding Method Toilet External Catheter External Catheter - Exam - Constitutional General appearance: morbidly obese - EENT Eyes: EOMI, PERRLA Ears: bilateral: normal - Neck Neck: normal ROM Carotids: bilateral: upstroke normal Thyroid: bilateral: normal size - Respiratory Respiratory: bilateral: diminished, wheezing - Cardiovascular Rhythm: regular Heart sounds: normal: S1, S2 - Gastrointestinal General gastrointestinal: decreased bowel sounds, normal bowel sounds, soft - Integumentary Integumentary: decreased turgor - Neurologic Neurologic: CNII-XII intact - Musculoskeletal Musculoskeletal: gait normal, generalized weakness, strength equal bilaterally - Psychiatric Psychiatric: A&O x's 3, appropriate affect, intact judgment & insight - Labs CBC & Chem 7: 05/30/20 19:30 05/30/20 18:37 Labs: Abnormal Lab Results - Last 24 Hours (Table) 05/31/20 05/31/20 06/01/20 Range/Units 16:37 20:02 06:22 POC Glucose (mg/dL) 255 H 223 H 187 H (75-99) mg/dL 06/01/20 Range/Units 11:35 POC Glucose (mg/dL) 261 H (75-99) mg/dL Microbiology - Last 24 Hours (Table) 05/30/20 19:38 Blood Culture - Preliminary Blood No Growth after 24 hours Assessment and Plan Assessment: Acute hypoxic respiratory failure Right middle lobe and lower lobe pneumonia Acute COPD exacerbation Coronary artery disease Morbid obesity Likely sleep disorder breathing and sleep apnea Plan: Would recommend to continue broad-spectrum antibiotics IV steroids along with bronchodilator and supportive care follow up on his sputum studies further recommendations pending plan of care as per clinical response of the patient Time with Patient: Greater than 30
[2020-06-01 16:43] LABS: Glucose,Whole Blood 142 mg/dL (75-99)
[2020-06-01 20:24] LABS: Glucose,Whole Blood 261 mg/dL (75-99)
[2020-06-01] MEDS: ATORVASTATIN 40 MG TAB PO SCH (20:40)
[2020-06-01] MEDS: PROPRANOLOL LA 60 MG CAP.SA.24H PO SCH (20:41)
[2020-06-01] MEDS: LEVOFLOXACIN 750MG-D5W PMX 750 MG in DEXTROSE/WATER 1 150ML.BAG IVPB SCH (20:41)
[2020-06-01] MEDS: AMITRIPTYLINE HCL 10 MG TAB PO SCH (20:41)
[2020-06-01] MEDS: LOSARTAN 25 MG TAB PO SCH (20:42)
[2020-06-02 05:48] LABS: Glucose,Whole Blood 191 mg/dL (75-99)
[2020-06-02] MEDS: PANTOPRAZOLE 40 MG TABLET PO SCH (06:45)
[2020-06-02] MEDS: methylPREDNISolone SOD SUCCI 125 MG/2 ML VIAL IV SCH (06:45)
[2020-06-02] MEDS: INSULIN DETEMIR (LEVEMIR) 100 UNIT/ML SYR SQ SCH (06:45)
[2020-06-02] MEDS: INSULIN ASPART (NovoLOG) 100 UNIT/ML VIAL SQ SCH ×4 (06:45→21:05)
[2020-06-02] MEDS ORDERED: INSULIN DETEMIR (LEVEMIR) 100 UNIT/ML SYR SQ SCH (07:00)
[2020-06-02] MEDS: IPRATROPIUM-ALBUTEROL 3 ML NEB INHALATION SCH ×4 (08:08→20:39)
[2020-06-02] MEDS: BUDESONIDE 0.5 MG/2 ML NEBU INHALATION SCH ×2 (08:08→20:39)
[2020-06-02] MEDS: metOLazone 5 MG TAB PO SCH (10:02)
[2020-06-02] MEDS: TORSEMIDE 20 MG TAB PO SCH (10:02)
[2020-06-02] MEDS: NYSTATIN 100,000 UNIT/ML SUSP 500,000 UNIT/5 ML CUP PO SCH ×4 (10:03→21:05)
[2020-06-02] MEDS: metFORMIN 500 MG TAB PO SCH ×2 (10:10→20:29)
[2020-06-02] MEDS: guaiFENesin 600 MG TABLET.ER PO SCH ×2 (10:20→20:58)
[2020-06-02] MEDS: CHOLECALCIFEROL 25 MCG (1000 IU) TABLET PO SCH (10:20)
[2020-06-02] MEDS: POTASSIUM CHLORIDE ER 20 MEQ TAB.ER PO SCH ×2 (10:20→20:59)
[2020-06-02] MEDS: ASCORBIC ACID 500 MG TAB PO SCH (10:21)
[2020-06-02] MEDS: METOPROLOL TARTRATE 50 MG TAB PO SCH ×2 (10:21→20:59)
[2020-06-02] MEDS: HEPARIN SODIUM,PORCINE 5,000 UNIT/ML 1 ML VIAL SQ SCH ×3 (10:21→22:40)
[2020-06-02] MEDS: NICOTINE 7MG/24HR PATCH TRANSDERM SCH (10:21)
[2020-06-02] MEDS: ASPIRIN 81 MG PO SCH (10:21)
[2020-06-02] MEDS: FERROUS SULFATE 325 MG TAB PO SCH (10:21)
--- NOTE | 2020-06-02 11:00 | P.PN ---
Subjective Progress Note Date: 06/02/20 HISTORY OF PRESENT ILLNESS This is a 55-year-old female patient of Dr. Valencia and Dr. TAINA Daniel with past medical history of chronic diastolic heart failure, COPD, mild persistent ast hma, hypertension, hyperlipidemia, coronary artery disease, morbid obesity, active tobacco use and dependence, gastroesophageal reflux disease. March 2019, patient had a heart catheterization that showed a subtotal occlusion or probable total occlusion of the RCA with good collaterals with recommendations for medical management. Echocardiogram revealed EF of 60-65%. Patient has had ongoing problems with difficulty breathing for the past 6 weeks and has undergone treatment with antibiotics and steroids in outpatient setting. COVID- 19 testing was negative approximately 6 weeks ago. She complains of cough with yellow sputum production. She complains of wheezing. She has been using a nebu lizer. She denies having any fever or chills. She also complains of her hearing decreased. She also states she had a fall couple weeks ago she tripped on the rug. She hit the front of her face at the time. Patient complains of migraine headaches. Patient also complains of chest pain starting a week ago but not very bad today. She had a little chest pain yesterday. Pain is in the midsternal area and nonradiating. Patient came into [facility] emergency center for evaluation. She was afebrile, heart rate 98, blood pressure 04/03/1962, pulse ox 86% on room air. EKG was a sinus rhythm. WBC 12.9, hemoglobin 14.3, platelet count 408. Sodium 138, potassium 4.2, chloride 89, CO2 39, BUN 48 creatinine 0.97. Blood sugar 132. Lactic acid 1.Lactic acid 1.7. Liver function tests normal. Troponin 0.045. COVID-19 not detected. D-dimer 0.56. Chest x-ray revealed small bibasilar opacities, favor atelectasis.Patient admitted to the cardiac stepdown unit and consults in place for Dr. Penny and Dr. Castanon. 06/01: Patient complains of a headache this morning. Her biggest complaint is that she wants a regular diet. She understands that she should be a heart healthy diet and low-sodium and that this could impact the amount of edema and shortness of breath that she experiences. Patient is adamant that she wants a regular diet and thus this will be changed. Repeat troponins were 0.020 0.019. She's been afebrile, heart rate 60, blood pressure 117/56, pulse ox 93% on 5 L nasal cannula. Patient is followed by pulmonary medicine and cardiology. Cardiology has changed IV Lasix to Demadex 40 mg oral daily. Patient is continued on Solu-Medrol 60 mg IV every 6 hours. 06/02: Patient has been afebrile, heart rate 68, blood pressure 105/67, pulse ox 90% on 5 L nasal cannula. Blood sugars are running between 191 and 261. Patient was started on Levemir 15 units daily to cover blood sugars elevated due to steroids and patient's regular diet. Hemoglobin A1c will be ordered and patient started on metformin. Blood cultures no growth at 48 hours. Patient states that she her breathing is better overall but she still has some wheezing. She states that she feels less short of breath with activity. Steroids will be decreased to 40 mg every 8 hours and start prednisone in the morning. Nystatin started for thrush. Anticipate discharge home tomorrow. Patient will need home oxygen assessment done prior to discharge. REVIEW OF SYSTEMS Constitutional: No fever, no chills, no night sweats. No weight change. No weakness, fatigue or lethargy. No daytime sleepiness. EENT: No headache. No blurred vision or double vision, no loss of vision. No loss of Hearing, no ringing in the ears, no dizziness. No nasal drainage or congestion. No epistaxis. No sore throat. Lungs: Reports shortness of breathimproving, Reports cough, Reports sputum production. Reports wheezing. Improved shortness of breath with activity. Cardiovascular: No chest pain, no lower extremity edema. No palpitations. No paroxysmal nocturnal dyspnea. No orthopnea. No lightheadedness or dizziness. No syncopal episodes. Abdominal: No abdominal pain. No nausea, vomiting. No diarrhea. No constipation. No bloody or tarry stools.. No loss of appetite. Genitourinary: No dysuria, increased frequency, urgency. No urinary retention. Musculoskeletal: No myalgias. No muscle weakness, no gait dysfunction, no frequent falls. No back pain. Reports neck pain. Integumentary: Reports wound, no lesions. No rash or pruritus. No unusual bruising. No change in hair or nails. Neurologic: No aphasia. No facial droop. No change in mentation. No head injury. No headache. No paralysis. No paresthesia. Psychiatric: No depression. No anxiety. No mood swings. Endocrine: No abnormal blood sugars. No weight change. No excessive sweating or thirst. No cold intolerance. PHYSICAL EXAMINATION Gen: This is morbidly obese 55-year-old female. She is resting in bed and appears to be comfortable at rest. HEENT: Head is atraumatic, normocephalic. Pupils equal, round. Sclerae is anicteric. NECK: Supple. No JVD. No lymphadenopathy. No thyromegaly. LUNGS: diminished in the bases with scattered rhonchi. No intercostal retractions. HEART: Regular rate and rhythm. No murmur. ABDOMEN: Morbidly obese. Soft. Bowel sounds are present. No masses. No tenderness. EXTREMITIES: No pedal edema. No calf tenderness. NEUROLOGICAL: Patient is awake, alert and oriented x3. Cranial nerves 2 through 12 are grossly intact. ASSESSMENT AND PLAN 1. Acute hypoxic respiratory failure secondary to a combination of acute diastolic heart failure and acute exacerbation of COPD, possible bilateral lower lobe pneumonia, gram-negative pneumonia. Consult with pulmonary medicine and cardiology. Continue DuoNeb treatments 4 times daily and every 4 hours as needed, continue Pulmicort 0.5 mg twice daily, Solu-Medrol decreased to 40 mg every 8 hours and start prednisone in the morning, Levaquin 750 mg IV piggyback daily, Mucinex 1200 mg twice daily, IV Lasix changed to Demedex 40 mg PO daily, monitor I&O and daily weights, Zaroxolyn 5 mg daily. 2. Hypertension. Continue losartan 25 mg daily, Lopressor 50 mg twice daily, Inderal 60 mg at bedtime. 3. Hyperlipidemia. Continue Lipitor 40 mg at bedtime. 4. History of coronary artery disease. Continue aspirin 81 mg daily, Lipitor 40 mg at bedtime, Plavix 75 mg daily, Lopressor. 5. Active tobacco use and dependence. Nicotine patch. 6. Recent fall. X-ray of the cervical spine ordered. 7. Loss of hearing. Patient may require follow-up with ENT outpatient. 8. Suspect obstructive sleep apnea. Patient will be scheduled outpatient sleep study. 9. Diabetes mellitus type 2 in a patient with prediabetes, uncontrolled with hyperglycemia secondary to steroids. Patient started on metformin 500 mg twice daily and continue NovoLog scale, Levemir 15 units daily. 10. Oral thrush. Patient started on nystatin suspension.Gastroesophageal reflux disease, GI prophylaxis. Protonix. 11. DVT prophylaxis. Heparin subcu. DISCHARGE PLAN Home tomorrow. Impression and plan of care have been directed as dictated by the signing physician. Megan Rico nurse practitioner acting as scribe for signing physician. Objective - Vital Signs Vital signs: Vital Signs Temp 97.8 F 06/02/20 04:00 Pulse 72 06/02/20 08:08 Resp 20 06/02/20 04:00 BP 105/67 06/02/20 04:00 Pulse Ox 90 L 06/02/20 04:00 Intake & Output 06/01/20 06/02/20 06/02/20 18:59 06:59 18:59 Intake Total 680 Balance 680 Weight 145.1 kg Intake: Oral 680 Other: Voiding Method External Catheter External Catheter # Voids 1 # Bowel Movements 1 - Labs CBC & Chem 7: 05/30/20 19:30 05/30/20 18:37 Labs: Abnormal Lab Results - Last 24 Hours (Table) 06/01/20 06/01/20 06/01/20 Range/Units 11:35 16:41 20:16 POC Glucose (mg/dL) 261 H 142 H 261 H (75-99) mg/dL 06/02/20 Range/Units 05:47 POC Glucose (mg/dL) 191 H (75-99) mg/dL Microbiology - Last 24 Hours (Table) 05/30/20 19:38 Blood Culture - Preliminary Blood No Growth after 48 hours
--- NOTE | 2020-06-02 11:09 | P.PN ---
Subjective Progress Note Date: 06/02/20 Principal diagnosis: Acute hypoxic respiratory failure Right middle lobe and lower lobe pneumonia Acute COPD exacerbation Coronary artery disease Morbid obesity Likely sleep disorder breathing and sleep apnea 06/02/2020, patient seen eval examined during the rounds labs reviewed medications reviewed care plan discussed, patient remains on 5 L oxygen still short of breath intermittently denies any chest pain, patient is being continued on bronchodilator steroids deep breathing exercise incentive spirometry 06/01/2020, patient seen eval examined during the rounds labs reviewed medications reviewed care plan discussed, respiratory status slightly better but still have ongoing symptoms, currently she is on 4 L oxygen, her blood cultures have been negative so far, This is a morbidly obese 54-year-old female with extensive history of smoking and nicotine use came into the hospital with progressive increased shortness of breath and cough, denies any hemoptysis respiratory status continued to get worse, patient has prior history of dyslipidemia hypertension hypertensive cardiovascular disease smoking along with GERD, patient has coronary artery disease with good ejection fraction 60-65%, due to progressive shortness of breath decided to come into the hospital, computed tomography scan revealed cardiomegaly with prominent scarring at the bases possible pneumonia cannot be excluded patient currently being treated with bronchodilators and IV steroids and broad-spectrum antibiotics with continuation of home medication sputum samples being obtained Objective - Vital Signs Vital signs: Vital Signs Temp 97.8 F 06/02/20 04:00 Pulse 72 06/02/20 08:27 Resp 20 06/02/20 04:00 BP 105/67 06/02/20 04:00 Pulse Ox 90 L 06/02/20 04:00 Intake & Output 06/01/20 06/02/20 06/02/20 18:59 06:59 18:59 Intake Total 680 118 Balance 680 118 Weight 145.1 kg Intake: Oral 680 118 Other: Voiding Method External Catheter External Catheter # Voids 1 # Bowel Movements 1 - Exam - Constitutional General appearance: morbidly obese - EENT Eyes: EOMI, PERRLA Ears: bilateral: normal - Neck Neck: normal ROM Carotids: bilateral: upstroke normal Thyroid: bilateral: normal size - Respiratory Respiratory: bilateral: diminished, wheezing - Cardiovascular Rhythm: regular Heart sounds: normal: S1, S2 - Gastrointestinal General gastrointestinal: decreased bowel sounds, normal bowel sounds, soft - Integumentary Integumentary: decreased turgor - Neurologic Neurologic: CNII-XII intact - Musculoskeletal Musculoskeletal: gait normal, generalized weakness, strength equal bilaterally - Psychiatric Psychiatric: A&O x's 3, appropriate affect, intact judgment & insight - Labs CBC & Chem 7: 05/30/20 19:30 05/30/20 18:37 Labs: Abnormal Lab Results - Last 24 Hours (Table) 06/01/20 06/01/20 06/01/20 Range/Units 11:35 16:41 20:16 POC Glucose (mg/dL) 261 H 142 H 261 H (75-99) mg/dL 06/02/20 Range/Units 05:47 POC Glucose (mg/dL) 191 H (75-99) mg/dL Microbiology - Last 24 Hours (Table) 05/30/20 19:38 Blood Culture - Preliminary Blood No Growth after 48 hours Assessment and Plan Assessment: Acute hypoxic respiratory failure Right middle lobe and lower lobe pneumonia Acute COPD exacerbation Coronary artery disease Morbid obesity Likely sleep disorder breathing and sleep apnea Plan: Would recommend to continue broad-spectrum antibiotics IV steroids along with bronchodilator and supportive care follow up on his sputum studies further recommendations pending plan of care as per clinical response of the patient Time with Patient: Greater than 30
[2020-06-02 11:51] LABS: Glucose,Whole Blood 180 mg/dL (75-99)
[2020-06-02] MEDS ORDERED: methylPREDNISolone SOD SUCCI 40 MG/ML 1 ML VIAL IV SCH (16:00)
[2020-06-02 16:58] LABS: Glucose,Whole Blood 179 mg/dL (75-99)
[2020-06-02] MEDS: ATORVASTATIN 40 MG TAB PO SCH (20:58)
[2020-06-02] MEDS: PROPRANOLOL LA 60 MG CAP.SA.24H PO SCH (20:59)
[2020-06-02] MEDS: LOSARTAN 25 MG TAB PO SCH (20:59)
[2020-06-02] MEDS ORDERED: LEVOFLOXACIN 750 MG TAB PO SCH (21:00)
[2020-06-02] MEDS: AMITRIPTYLINE HCL 10 MG TAB PO SCH (21:00)
[2020-06-02 21:30] LABS: Glucose,Whole Blood 154 mg/dL (75-99)
[2020-06-02 22:44] VITALS: RESP 20
[2020-06-03 05:40] LABS: Hemoglobin A1C 5.9 % (4.0-6.0)
[2020-06-03 06:22] LABS: Glucose,Whole Blood 161 mg/dL (75-99)
[2020-06-03] MEDS: INSULIN ASPART (NovoLOG) 100 UNIT/ML VIAL SQ SCH ×2 (06:42→12:29)
[2020-06-03] MEDS: INSULIN DETEMIR (LEVEMIR) 100 UNIT/ML SYR SQ SCH (06:42)
[2020-06-03] MEDS: PANTOPRAZOLE 40 MG TABLET PO SCH (06:43)
[2020-06-03] MEDS: metFORMIN 500 MG TAB PO SCH (06:43)
[2020-06-03] MEDS: BUDESONIDE 0.5 MG/2 ML NEBU INHALATION SCH (08:27)
[2020-06-03] MEDS: IPRATROPIUM-ALBUTEROL 3 ML NEB INHALATION SCH ×2 (08:27→11:39)
[2020-06-03] MEDS ORDERED: predniSONE 20 MG TAB PO SCH (09:00)
[2020-06-03] MEDS: TORSEMIDE 20 MG TAB PO SCH (09:25)
[2020-06-03] MEDS: CHOLECALCIFEROL 25 MCG (1000 IU) TABLET PO SCH (09:25)
[2020-06-03] MEDS: guaiFENesin 600 MG TABLET.ER PO SCH (09:25)
[2020-06-03] MEDS: FERROUS SULFATE 325 MG TAB PO SCH (09:26)
[2020-06-03] MEDS: metOLazone 5 MG TAB PO SCH (09:26)
[2020-06-03] MEDS: ASCORBIC ACID 500 MG TAB PO SCH (09:26)
[2020-06-03] MEDS: ASPIRIN 81 MG PO SCH (09:27)
[2020-06-03] MEDS: NYSTATIN 100,000 UNIT/ML SUSP 500,000 UNIT/5 ML CUP PO SCH ×2 (09:27→12:52)
[2020-06-03] MEDS: NICOTINE 7MG/24HR PATCH TRANSDERM SCH (09:27)
[2020-06-03] MEDS: HEPARIN SODIUM,PORCINE 5,000 UNIT/ML 1 ML VIAL SQ SCH (09:27)
[2020-06-03] MEDS: POTASSIUM CHLORIDE ER 20 MEQ TAB.ER PO SCH (09:27)
[2020-06-03] MEDS: METOPROLOL TARTRATE 50 MG TAB PO SCH (09:27)
--- NOTE | 2020-06-03 10:53 | P.DS ---
Providers Date of admission: 05/30/20 20:56 Expected date of discharge: 06/03/20 Attending physician: Noemy Valencia Consults: 05/30/20 20:56 Consult Physician Routine Consulting Provider: Drake Penny Consult Reason/Comments: copd, dyspnea Do you want consulting provider notified?: Yes 05/31/20 09:22 Consult Physician Routine Consulting Provider: Peter Castanon Consult Reason/Comments: elevated troponin Do you want consulting provider notified?: Yes Primary care physician: Noemy Valencia [facility] Course: HISTORY OF PRESENT ILLNESS This is a 55-year-old female patient of Dr. Valencia and Dr. TAINA Daniel with past medical history of chronic diastolic heart failure, COPD, mild persistent asthma, hypertension, hyperlipidemia, coronary artery disease, morbid obesity, active tobacco use and dependence, gastroesophageal reflux disease. March 2019, patient had a heart catheterization that showed a subtotal occlusion or probable total occlusion of the RCA with good collaterals with recommendations for medical management. Echocardiogram revealed EF of 60-65%. Patient has had ongoing problems with difficulty breathing for the past 6 weeks and has under gone treatment with antibiotics and steroids in outpatient setting. COVID-19 testing was negative approximately 6 weeks ago. She complains of cough with yellow sputum production. She complains of wheezing. She has been using a nebulizer. She denies having any fever or chills. She also complains of her hearing decreased. She also states she had a fall couple weeks ago she tripped on the rug. She hit the front of her face at the time. Patient complains of migraine headaches. Patient also complains of chest pain starting a week ago but not very bad today. She had a little chest pain yesterday. Pain is in the midsternal area and nonradiating. Patient came into [facility] emergency center for evaluation. She was afebrile, heart rate 98, blood pressure 04/03/1962, pulse ox 86% on room air. EKG was a sinus rhythm. WBC 12.9, hemoglobin 14.3, platelet count 408. Sodium 138, potassium 4.2, chloride 89, CO2 39, BUN 48 creatinine 0.97. Blood sugar 132. Lactic acid 1.Lactic acid 1.7. Liver function tests normal. Troponin 0.045. COVID-19 not detected. D-dimer 0.56. Chest x-ray revealed small bibasilar opacities, favor atelectasis.Patient admitted to the cardiac stepdown unit and consults in place for Dr. Penny and Dr. Castanon. 06/01: Patient complains of a headache this morning. Her biggest complaint is that she wants a regular diet. She understands that she should be a heart healthy diet and low-sodium and that this could impact the amount of edema and shortness of breath that she experiences. Patient is adamant that she wants a regular diet and thus this will be changed. Repeat troponins were 0.020 0.019. She's been afebrile, heart rate 60, blood pressure 117/56, pulse ox 93% on 5 L nasal cannula. Patient is followed by pulmonary medicine and cardiology. Cardiology has changed IV Lasix to Demadex 40 mg oral daily. Patient is continued on Solu-Medrol 60 mg IV every 6 hours. 06/02: Patient has been afebrile, heart rate 68, blood pressure 105/67, pulse ox 90% on 5 L nasal cannula. Blood sugars are running between 191 and 261. Patient was started on Levemir 15 units daily to cover blood sugars elevated due to steroids and patient's regular diet. Hemoglobin A1c will be ordered and patient started on metformin. Blood cultures no growth at 48 hours. Patient states that she her breathing is better overall but she still has some wheezing. She states that she feels less short of breath with activity. Steroids will be decreased to 40 mg every 8 hours and start prednisone in the morning. Nystatin started for thrush. Anticipate discharge home tomorrow. Patient will need home oxygen assessment done prior to discharge. 06/03: Home oxygen assessment was done yesterday which showed patient had a pulse ox is 97% before walking and dropped to 88%. Patient will be set up for home oxygen therapy due to requiring oxygen to manage her COPD. Patient states that her breathing status is improved today. She states she walked in the hallway yesterday 3 times. She is currently pulse oxing 95% on 5 L and will attempt to get her to 4 L for home oxygen. She's been afebrile, heart rate 73, blood pressure 122/67. Blood sugars are running between 154 and 179. Patient will be discharged home today in stable condition. DISCHARGE DIAGNOSES 1. Acute hypoxic respiratory failure secondary to a combination of acute diastolic heart failure and acute exacerbation of COPD, possible bilateral lower lobe pneumonia, gram-negative pneumonia. 2. Hypertension. 3. Hyperlipidemia. 4. History of coronary artery disease. 5. Active tobacco use and dependence. 6. Recent fall. 7. Loss of hearing. 8. Suspect obstructive sleep apnea. Patient will be scheduled outpatient sleep study. 9. Diabetes mellitus type 2 in a patient with prediabetes, uncontrolled with hyperglycemia secondary to steroids. 10. Oral thrush. 11. Chronic hypoxic respiratory failure requiring home oxygen therapy. DISCHARGE PLAN Home Impression and plan of care have been directed as dictated by the signing physician. Megan Rcio nurse practitioner acting as scribe for signing physician. Plan - Discharge Summary Discharge Rx Participant: No New Discharge Prescriptions: New metFORMIN HCL [Glucophage] 500 mg PO BID-W/MEALS #60 tab guaiFENesin [Mucinex] 1,200 mg PO Q12HR tablet.er Nystatin 100,000 Unit/ml Susp [Mycostatin Oral Susp] 500,000 unit PO QID #200 ml Amitriptyline HCl [Elavil] 20 mg PO HS #30 tab Nicotine 7Mg/24Hr Patch [Habitrol] 1 patch TRANSDERM DAILY #30 patch Levofloxacin [Levaquin] 750 mg PO HS #3 tab predniSONE 0 mg PO DIRECTED #30 tab Pantoprazole [Protonix] 40 mg PO AC-BRKFST #30 tablet.dr Continue Potassium Chloride ER [K-Dur 20] 20 meq PO BID Ipratropium/Albuterol Sulfate [Combivent Respimat Inhaler] 1 puff INHALATION RT-Q4H PRN PRN Reason: Shortness Of Breath oxyCODONE-APAP 7.5-325MG [Percocet 7.5-325 mg] 1 tab PO Q6HR PRN PRN Reason: Pain Cholecalciferol [Vitamin D3 (25 Mcg = 1000 Iu)] 6,000 unit PO DAILY Metoprolol Tartrate [Lopressor] 50 mg PO BID Losartan Potassium 25 mg PO HS Atorvastatin Calcium [Lipitor] 40 mg PO HS Albuterol Nebulized [Ventolin Nebulized] 2.5 mg INHALATION RT-TID PRN PRN Reason: Shortness Of Breath Aspirin 81 mg PO DAILY Ferrous Sulfate [Feosol] 325 mg PO DAILY Ascorbic Acid [Vitamin C] 1,000 mg PO DAILY Propranolol HCl [Propranolol HCl ER] 60 mg PO HS Budesonide [Pulmicort] 0.5 mg INHALATION RT-BID PRN PRN Reason: Shortness Of Breath Changed Torsemide [Demadex] 40 mg PO DAILY #0 metOLazone [Zaroxolyn] 5 mg PO MOWEFR #0 Discontinued Clopidogrel [Plavix] 75 mg PO DAILY Discharge Medication List Ipratropium/Albuterol Sulfate [Combivent Respimat Inhaler] 1 puff INHALATION RT- Q4H PRN 04/01/19 [History] Potassium Chloride ER [K-Dur 20] 20 meq PO BID 04/01/19 [History] oxyCODONE-APAP 7.5-325MG [Percocet 7.5-325 mg] 1 tab PO Q6HR PRN 10/06/19 [History] Cholecalciferol [Vitamin D3 (25 Mcg = 1000 Iu)] 6,000 unit PO DAILY 12/31/19 [History] Metoprolol Tartrate [Lopressor] 50 mg PO BID 12/31/19 [History] Albuterol Nebulized [Ventolin Nebulized] 2.5 mg INHALATION RT-TID PRN 05/30/20 [History] Ascorbic Acid [Vitamin C] 1,000 mg PO DAILY 05/30/20 [History] Aspirin 81 mg PO DAILY 05/30/20 [History] Atorvastatin Calcium [Lipitor] 40 mg PO HS 05/30/20 [History] Budesonide [Pulmicort] 0.5 mg INHALATION RT-BID PRN 05/30/20 [History] Ferrous Sulfate [Feosol] 325 mg PO DAILY 05/30/20 [History] Losartan Potassium 25 mg PO HS 05/30/20 [History] Propranolol HCl [Propranolol HCl ER] 60 mg PO HS 05/30/20 [History] Amitriptyline HCl [Elavil] 20 mg PO HS #30 tab 06/03/20 [Rx] Levofloxacin [Levaquin] 750 mg PO HS #3 tab 06/03/20 [Rx] Nicotine 7Mg/24Hr Patch [Habitrol] 1 patch TRANSDERM DAILY #30 patch 06/03/20 [Rx] Nystatin 100,000 Unit/ml Susp [Mycostatin Oral Susp] 500,000 unit PO QID #200 ml 06/03/20 [Rx] Pantoprazole [Protonix] 40 mg PO AC-BRKFST #30 tablet. 06/03/20 [Rx] Torsemide [Demadex] 40 mg PO DAILY #0 06/03/20 [Rx] guaiFENesin [Mucinex] 1,200 mg PO Q12HR tablet.er 06/03/20 [Rx] metFORMIN HCL [Glucophage] 500 mg PO BID-W/MEALS #60 tab 06/03/20 [Rx] metOLazone [Zaroxolyn] 5 mg PO MOWEFR #0 06/03/20 [Rx] predniSONE 0 mg PO DIRECTED #30 tab 06/03/20 [Rx] Follow up Appointment(s)/Referral(s): Venancio Syed MD [STAFF PHYSICIAN] - 2 Weeks Noemy Valencia MD [Primary Care Provider] - 1 Week Drake Penny MD [STAFF PHYSICIAN] - 1 Week Activity/Diet/Wound Care/Special Instructions: Patient will require home oxygen at discharge secondary to COPD Discharge Disposition: HOME SELF-CARE
[2020-06-03 11:51] VITALS: PULSE 72
[2020-06-03 12:23] LABS: Glucose,Whole Blood 140 mg/dL (75-99)
[2020-06-03 14:03] VITALS: BP 149/74; TEMP 97.5
== END 2020-06-03 15:40 | disposition home or self-care (01) | DRG 177 ==
LOC: EC 18:08 → 3SCARD 20:56
PROVIDERS: ADMIT Family Medicine; ATTEND Family Medicine
DX: J15.6 Pneumonia due to other Gram-negative bacteria (principal); J96.21 Acute and chronic respiratory failure with hypoxia; I50.33 Acute on chronic diastolic (congestive) heart failure; J44.1 Chronic obstructive pulmonary disease with (acute) exacerbation; J44.0 Chronic obstructive pulmonary disease with (acute) lower respiratory infection; Z68.43 Body mass index [BMI] 50.0-59.9, adult; B37.0 Candidal stomatitis; I11.0 Hypertensive heart disease with heart failure; E66.01 Morbid (severe) obesity due to excess calories; E11.65 Type 2 diabetes mellitus with hyperglycemia; Z20.822 Contact with and (suspected) exposure to COVID-19; J45.30 Mild persistent asthma, uncomplicated; I25.82 Chronic total occlusion of coronary artery; I45.10 Unspecified right bundle-branch block; I25.10 Atherosclerotic heart disease of native coronary artery without angina pectoris; I83.90 Asymptomatic varicose veins of unspecified lower extremity; K21.9 Gastro-esophageal reflux disease without esophagitis; E78.5 Hyperlipidemia, unspecified; G47.33 Obstructive sleep apnea (adult) (pediatric); T38.0X5A Adverse effect of glucocorticoids and synthetic analogues, initial encounter; I25.2 Old myocardial infarction; G43.909 Migraine, unspecified, not intractable, without status migrainosus; H91.90 Unspecified hearing loss, unspecified ear; F17.210 Nicotine dependence, cigarettes, uncomplicated; G56.03 Carpal tunnel syndrome, bilateral upper limbs; M47.9 Spondylosis, unspecified; N39.3 Stress incontinence (female) (male); Z71.6 Tobacco abuse counseling; Z79.82 Long term (current) use of aspirin; Z79.51 Long term (current) use of inhaled steroids; Z79.02 Long term (current) use of antithrombotics/antiplatelets; Z79.899 Other long term (current) drug therapy; Z86.14 Personal history of Methicillin resistant Staphylococcus aureus infection; Z87.440 Personal history of urinary (tract) infections; Z86.2 Personal history of diseases of the blood and blood-forming organs and certain disorders involving the immune mechanism; Z96.641 Presence of right artificial hip joint; Z87.42 Personal history of other diseases of the female genital tract; Z98.890 Other specified postprocedural states; W19.XXXA Unspecified fall, initial encounter; Z88.2 Allergy status to sulfonamides; Z82.5 Family history of asthma and other chronic lower respiratory diseases; Z83.3 Family history of diabetes mellitus; Z84.1 Family history of disorders of kidney and ureter; Z82.49 Family history of ischemic heart disease and other diseases of the circulatory system; Z87.2 Personal history of diseases of the skin and subcutaneous tissue
CPT/HCPCS: 36415; 71045; 71250; 72050; 80053; 83036; 83605; 83880; 84484; 85025; 85379; 85610; 85730; 87040; 87635; 93005; 93306; 94640; 94667; 96365; 96366; 96372; 96375; 96376; 99285